=== PATIENT | male | born 1945 | race Caucasian/White ===

== ENCOUNTER 2024-05-06 18:06 | Inpatient (IN) | payer MEDICARE, SELFPAY ==
[2024-05-06] VITALS (10 sets, daily range): BP systolic 87–107; BP diastolic 44–66; PULSE 73–90; RESP 12–19; TEMP 36.5–36.8; O2SAT 94–99; BMI 21.9
--- NOTE | ~2024-05-06 | CT_ITS ---
EXAMINATION: CT ABDOMEN PELVIS WITHOUT IV CONTRAST HISTORY: ?kidney mass COMPARISON: There are no prior studies for comparison. TECHNIQUE: CT scan of the abdomen and pelvis was performed without contrast using standard departmental protocol. Coronal and sagittal reformatted images were generated and reviewed. This CT exam was performed with one or more of the following dose reduction techniques: automated exposure control, adjustment of the mA and/or kV according to patient size, use of iterative reconstruction technique. DLP: 194 mGy-cm FINDINGS: LOWER CHEST: The visualized lung bases are clear. There is no pleural effusion. CARDIOVASCULATURE: The heart is normal in size. There is no pericardial effusion. LIVER: The liver is normal in size and contour. The liver has an unremarkable unenhanced appearance. GALLBLADDER / BILE DUCTS: The gallbladder is contracted. No definite calcified stones are identified. There is no intra or extrahepatic biliary ductal dilatation. SPLEEN: The spleen is normal in size and has an unremarkable unenhanced appearance. PANCREAS: The pancreas has an unremarkable unenhanced appearance. ADRENAL GLANDS: Unremarkable. KIDNEYS/RETROPERITONEUM: The right kidney demonstrates a 5.1 x 3.7 cm septated cyst at the upper pole. There is a 3 mm nonobstructing calculus at the upper pole. Additional smaller nonobstructing calculi are noted in the interpolar region. There is no hydronephrosis. The left kidney demonstrates a 4.6 cm cyst at the upper pole. There is a 7.1 x 8.0 x 6.2 cm heterogeneous mass at the anterior aspect of the interpolar region. The mass demonstrates wall irregularity and calcification and is highly suspicious for neoplasm. Evaluation is limited by lack of intravenous contrast material, however. No left renal calculi are identified. There is no left hydronephrosis. LYMPH NODES: No retroperitoneal lymphadenopathy is identified in the abdomen or pelvis. VASCULATURE: The abdominal aorta demonstrates atherosclerotic calcification, but is normal in caliber. MESENTERY/PERITONEUM: No free fluid. No masses. There is no free intraperitoneal gas. STOMACH: There is a large hiatal hernia. There is a large amount of debris in the remainder of the stomach. SMALL BOWEL: The small bowel is normal in caliber. COLON: The colon is unremarkable. APPENDIX: Normal. URINARY BLADDER/PELVIC ORGANS: There is the suggestion of mild wall thickening of the right lateral aspect of the urinary bladder. The prostate is normal in size. BONES / SOFT TISSUES: There is degenerative disc disease of the spine. CT/CT abdomen pelvis wo IV con IMPRESSION: 1. 7.1 x 8.2 x 6.2 cm heterogeneous mass at the anterior aspect of the interpolar region of the left kidney, demonstrating wall irregularity and calcification. While evaluation is limited by lack of intravenous contrast material, the lesion is highly suspicious for neoplasm. Renal protocol CT is recommended. 2. Possible wall thickening of the right lateral aspect of the urinary bladder. This could be further evaluated with cystoscopy. Electronically signed by: Kevin Arreola MD 05/07/2024 12:04 PM ADRIEN
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
--- NOTE | ~2024-05-06 | XR_ITS ---
CLINICAL HISTORY: low bp 1 view chest x-ray. Comparison: None Findings: Lungs are clear without acute infiltrates. No pneumothorax. Heart size normal. Retrocardiac hiatal hernia noted. No acute bony abnormalities. Impression: No acute processes This document has been electronically signed by: Igor Cuadra MD on 05/06/2024 20:19:34
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
--- NOTE | 2024-05-06 19:06 | ECG_ITS ---
Test Reason : LOW BP Blood Pressure : */* mmHG Vent. Rate : 78 BPM Atrial Rate : 78 BPM P-R Int : 174 ms QRS Dur : 80 ms QT Int : 434 ms P-R-T Axes : 63 57 1 degrees QTcB Int : 494 ms Normal sinus rhythm T wave abnormality, consider inferior ischemia T wave abnormality, consider anterior ischemia Abnormal ECG No previous ECGs available Referred By: Bety Byers Electronically Signed By: KAT EDWARDS
[2024-05-06 19:55] LABS: MANUAL DIFF FLAG NO
--- NOTE | 2024-05-06 19:59 | PC.NURSE ---
20g IV placed to RAC. lab work, CXR done. U/S at bedside. initial BP in room was 104/66, then 85/51, trendelenburg position, then 96/55
[2024-05-06 20:00] LABS: Basophils Percent Auto 0.2 % (0-2); Eosinophils Absolute Auto 0.1 X10*3/uL (0.0-0.4); Eosinophils Percent Auto 0.6 % (0-4); Hematocrit 41.3 % (42.0-52.0); Hemoglobin 14.3 g/dl (14.0-18.0); Imm Gran Abs Auto 0.06 X10*3/uL (0.00-0.03); Imm Gran Pct Auto 0.5 % (0.0-0.4); Lymphocytes Absolute Auto 2.6 X10*3/uL (1.2-4.9); Lymphocytes Percent Auto 23.3 % (20-40); Mean Corpuscular HGB Conc 34.6 g/dl (31.0-36.0); Mean Corpuscular Hemoglobin 32.2 pg (27.0-33.0); Mean Platelet Volume 11.2 fL (9.4-12.4); Monocytes Absolute Auto 1.3 X10*3/uL (0.1-1.2); Monocytes Percent Auto 11.6 % (2-11); Neutrophils Percent Auto 63.8 % (45-73); Platelet Count 156 X10*3/uL (160-400); Red Blood Count 4.44 X10*6/uL (4.60-5.80); Red Cell Distribution Width 13.7 % (11.0-16.0)
[2024-05-06 20:09] LABS: INTERNATIONAL NORM RATIO 1.2 (0.9-1.1); Prothrombin Time 14.2 SEC (10.9-12.4)
[2024-05-06 20:09] LABS: Troponin-I High Sensitivity 36.2 ng/L (<3.5-35.0)
[2024-05-06 20:13] LABS: Alanine Aminotransferase 9 U/L (0-40); Albumin Level 3.4 g/dL (3.5-5.0); Alkaline Phosphatase 81 U/L (39-117); Anion Gap 16 (12-20); Aspartate Amino Transferase 26 U/L (5-37); Bilirubin Direct 0.4 mg/dL (0.0-0.5); Bilirubin Total 0.8 mg/dL (0.0-1.0); Blood Urea Nitrogen 76 mg/dL (9-16); Carbon Dioxide 25 mmol/L (22-29); Chloride 105 mmol/L (96-108); Creatinine Clr Calc Pharmacy 15.5; Estimated Glomerular Filt Rate 17; Glucose Random 125 mg/dL (60-115); Magnesium 2.2 mg/dL (1.6-2.6); Potassium 4.2 mmol/L (3.3-5.1); Sodium 142 mmol/L (135-145); Total Protein 7.3 g/dL (6.5-8.0)
[2024-05-06 20:34] LABS: Influenza A PCR NEGATIVE (Negative); Influenza B PCR NEGATIVE (Negative); Resp Syncy Virus RNA Qual PCR NEGATIVE (Negative); SARS COV2 PCR INHOUSE NEGATIVE (Negative)
[2024-05-06] MEDS: 0.9 % Sodium Chloride 1,000 ML 999 ML IV ×2 (20:43)
[2024-05-06] MEDS: Apixaban 5 MG TABLET 10 MG PO (21:59)
--- NOTE | 2024-05-06 22:03 | PHA.MEDREC ---
Addendum entered by Artem Parker RPh 05/06/24 22:15: Med rec was reviewed by [facility]. Original Note: Pharmacy Consult ? Medication Reconciliation Pharmacy has completed the medication reconciliation. Went to speak with patient about medications and patients grandson at bedside had photos of Rx bottles of medications the patient was filling at a [facility] in [facility]. Patient got Doxepin 25mg capsules taken 1 cap at bedtime, Chlorthalidone 25mg tabs taken 1 tab daily, Metoprolol Succinate 25mg tabs taken 1 tab daily, Pantoprazole 40mg tabs taken 1 tab daily, Lisinopril 40mg tabs taken 1 tab daily and Escitalopram 20mg tabs taken 1 tab daily. The grandson states they are now going to be filling his grandfathers medications at [facility] on [facility] in [place]. He also confirmed the patient took his morning medications this morning.
[2024-05-06 22:28] LABS: Appearance Urine Clear; Color Urine Dark Yellow; Glucose Urine UA Negative (Negative); Leukocyte Esterase Urine Small (1+) (Negative); Nitrite Urine Negative (Negative); UMIC TRIGGER UACC YES; Urine Blood Negative (Negative); Urine Ketones Trace mg/dL (Negative); Urine Protein Negative (Neg-Trace)
[2024-05-06 22:43] LABS: Bacteria Urine None Seen (None Seen); RBC Urine 0-2 /HPF (0-2); Squamous Epithelial Cell Urine 0-2 /HPF (0-2); UACC Culture Trigger YES; WBC Urine 0-5 /HPF (0-5)
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
--- NOTE | 2024-05-06 23:31 | PC.NURSE ---
Took over care from ABA Quesada, pt resting in bed, no sign of distress at this bed.
[2024-05-07] VITALS (10 sets, daily range): BP systolic 97–133; BP diastolic 54–65; PULSE 66–82; RESP 13–20; TEMP 36.4–36.8; O2SAT 95–99; BMI 27.8
[2024-05-07] MEDS: Pantoprazole Sodium 20 MG TABLET.DR 40 MG PO (05:46)
[2024-05-07] MEDS: 0.9 % Sodium Chloride Flush 3 ML SYRINGE IVFLUSH ×3 (05:47→20:02)
[2024-05-07 05:56] LABS: Hematocrit 36.6 % (42.0-52.0); Hemoglobin 12.1 g/dl (14.0-18.0); Mean Corpuscular HGB Conc 33.1 g/dl (31.0-36.0); Mean Corpuscular Hemoglobin 31.5 pg (27.0-33.0); Mean Corpuscular Volume 95.3 fL (80.0-98.0); Mean Platelet Volume 11.1 fL (9.4-12.4); Platelet Count 126 X10*3/uL (160-400); Red Blood Count 3.84 X10*6/uL (4.60-5.80); Red Cell Distribution Width 13.5 % (11.0-16.0); White Blood Count 8.6 X10*3/uL (4.8-10.8)
[2024-05-07 06:08] LABS: Anion Gap 10 (12-20); Blood Urea Nitrogen 65 mg/dL (9-16); Calcium 8.5 mg/dL (8.4-10.2); Carbon Dioxide 24 mmol/L (22-29); Chloride 112 mmol/L (96-108); Creatinine Clr Calc Pharmacy 18.6; Estimated Glomerular Filt Rate 22; Glucose Random 108 mg/dL (60-115); Potassium 4.3 mmol/L (3.3-5.1); Sodium 142 mmol/L (135-145)
--- NOTE | 2024-05-07 06:39 | PC.NURSE ---
pt voided 260cc at this time.
--- NOTE | 2024-05-07 07:00 | CA_ITS ---
Transthoracic Echocardiogram Patient (Last, First, Middle): Pawel Will F Gender: Male Date of : 1945 Age: 79 Procedure Date: 05/07/2024 Procedure Type: Transthoracic Echocardiogram [place] [facility] [place] Height: 170.18 cm Weight: 63.5 kg BSA: 1.74 m2 Heart Rate: bpm BP: 97 / 58 mmHg Transportation Inspector: SOPHIA Referring MD: Leanne SCHULTZ Symptoms: dizziness, DVT Study Quality: Adequate w contrast ECG Rhythm: Sinus Conclusions: - The left ventricular systolic function is normal. The visually estimated ejection fraction is between 60-65%. - No obvious valvular pathology seen on this study. Findings Procedure Information Contrast agent, definity, is being given per protocol without apparent complications. Left Ventricle Normal left ventricular cavity size. There is normal left ventricular wall thickness. The left ventricular systolic function is normal. The visually estimated ejection fraction is between 60-65%. There is no evidence of regional wall motion abnormalities. Diastolic function is normal for age. Right Ventricle Normal right ventricular cavity size and systolic function. Atria Both atria are normal in size. Aortic Valve There is a normal trileaflet aortic valve. There is no aortic valve stenosis. There is no aortic valve regurgitation. Mitral Valve The mitral valve appears normal. There is no mitral valve regurgitation. There is no mitral valve stenosis. Pulmonic Valve The pulmonic valve is likely normal. Tricuspid Valve There is trace tricuspid valve regurgitation. There is no evidence of pulmonary hypertension. Great Vessels The asc aorta is normal in size. Venous The inferior vena cava is normal in size and collapses greater than 50% with inspiration. Pericardium/Pleural There is no evidence of pericardial effusion. Prior Study Comparison No prior study available for comparison. Recommendations, Care & Conclusions No obvious valvular pathology seen on this study. Measurements 2D Linear Measurements IVSd: 0.98 0.6-0.9/0.6-1.0 cm LVIDd: 4.32 3.9-5.3/4.2-5.9 cm LVIDd Index: 2.48 2.4-3.2/2.2-3.1 cm/m2 LVIDs: 2.78 2.0-3.6 cm LVPWd: 0.88 0.7-1.1 cm LA Diam: 3.00 2.7-3.8/3.0-4.0 cm LAIDs Index: 1.72 1.5-2.3 cm/m2 LV Mass: 162.22 67-162/88-224 g LV Mass Index: 93.23 43-95/49-115 g/m2 LVOT Diam: 2.30 3.0+(-)1.3 cm Mitral Valve MV Pk E: 0.71 MV PK A: 0.76 MV Decel Time: 237.00 E/A: 0.90 E'Lateral: 9.46 E'Medial: 5.44 E/E' Med: 13.00 E/E' Lat: 7.50 PHT: 69.00 MVA PHT: 3.19 Decel Eddy: 2.98 LVOT LVOT Diam: 2.30 LVOT Area: 4.15 Diastolic Function MV Pk E: 0.71 MV Pk A: 0.76 E/A: 0.90 E'Medial: 5.44 E/E' Med: 13.00 E' Laterial: 9.46 E/E' Lat: 7.50 Right Ventricle TAPSE (mm): 21.40 TVS' Fitz: 12.80 Tricuspid Valve TR Pk Fitz: 2.27 TR Pk Grad: 21.00 RA Press: 3.00 RVSP: 24.00 Great Vessels Aorta Sinus of Valsalva: 3.57 2.0-3.[address] [place]: 3.03 1.7-3.4 cm Ao Asc: 3.80 2.1-3.4 cm Updated in Other Vendor System with Status of Final Asif Foster MD electronically signed on 05/08/2024 11:12:51 AM with status of Final
[2024-05-07] MEDS: Metoprolol Succinate ER 25 MG TAB.ER.24H PO (09:21)
[2024-05-07] MEDS: Apixaban 5 MG TABLET 10 MG PO ×2 (09:21→20:02)
--- NOTE | 2024-05-07 10:30 | MHC.CM.PN ---
CM met with Patient at bedside, in the ED, and addressed KENNY with him (original was given to Patient and a copy will be placed in the chart). Patient has been switched from OBSERVATION to INPATIENT and CM will address IMM with Patient today. Patient lives in a motel in [place], [place] and he required no services nor DME [employer]RB[employer] DES[employer]. Patient may benefit from a PT Eval to assist with disposition;CM has initiated and will follow for dc planning. Patient's Grandson/Fernando is the HCP and he will transport to home. Patient has no PCP; PCP brochure to be provided when IMM is addressed today.CM will follow.
--- NOTE | 2024-05-07 13:29 | P.PNIM_ITS ---
Subjective Subjective Date of Service: 05/07/24 Interval History: Seen and examined this morning Follow-up for orthostatic hypotension, kim dizziness improving Review of Systems Review of Systems: Yes all other systems are reviewed and are negative Constitutional Constitutional: Denies chills and Denies fever(s) Cardiovascular Cardiovascular: Denies chest pain, Denies palpitations and Denies dyspnea Respiratory Respiratory: Denies cough and Denies dyspnea Endocrine Endocrine: Denies palpitations Physical Exam 2 Vital Signs: Vital Signs: Last Vital Signs Temp 98.1 F 05/07/24 09:58 Pulse 69 05/07/24 09:58 Resp 19 05/07/24 09:58 BP 97/58 L 05/07/24 09:58 Pulse Ox 99 05/07/24 09:58 O2 Del Method Room Air 05/07/24 09:58 BMI result Body Mass Index 21.9 Const: General: cooperative, comfortable, alert and awake Nutritional Appearance: average body habitus Orientation/consciousness: patient oriented x3 Resp: Effort & Inspection: normal respiratory effort, able to speak in complete sentences, no respiratory distress and no use of accessory muscles GI: Inspection: No distended Palpation (GI): Soft to palpation Neuro: General: patient oriented x3, moves all extremities and CN's II-XI intact bilaterally Objective Data Active Medications Acetaminophen (Acetaminophen 325 Mg Tablet) 650 mg PO Q6H PRN PRN Reason: Pain, Mild 1-3,fever,headache Apixaban (Apixaban 5 Mg Tablet) 10 mg PO BID [facility] Stop: 05/13/24 09:01 Last Admin: 05/07/24 09:21 Dose: 10 mg Documented By: ABDI Calcium Carbonate (Calcium Carbonate 750 Mg Tab.Chew) 750 mg PO Q4H PRN PRN Reason: Heartburn Doxepin HCl (Doxepin Hcl 25 Mg Capsule) 25 mg PO BEDTIME [facility] Escitalopram Oxalate (Escitalopram Oxalate 20 Mg Tablet) 20 mg PO DAILY [facility] Lactated Ringer's (Lr) 1,000 mls @ 80 mls/hr IVCONT .[id number] [facility] Stop: 05/07/24 23:59 Magnesium Hydroxide (Milk Of Magnesia 30 Ml Oral.Susp) 30 ml PO DAILY PRN PRN Reason: Constipation Melatonin (Melatonin 3 Mg Tablet) 6 mg PO BEDTIME PRN PRN Reason: Insomnia Metoprolol Succinate (Metoprolol Succinate Er 25 Mg Tab.Er.24h) 25 mg PO DAILY [facility]; Protocol Last Admin: 05/07/24 09:21 Dose: 25 mg Documented By: ABDI Ondansetron HCl (Ondansetron Hcl 4 Mg/2 Ml Vial) 4 mg IVPUSH Q8H PRN PRN Reason: Nausea and Vomiting Pantoprazole Sodium (Pantoprazole Sodium 20 Mg Tablet.Dr) 40 mg PO DAILY@0630 [facility] Last Admin: 05/07/24 05:46 Dose: 40 mg Documented By: MAYNOR Sodium Chloride (0.9 % Sodium Chloride Flush 3 Ml Syringe) 3 ml IVFLUSH QSHIFT [facility] Last Admin: 05/07/24 09:30 Dose: 3 ml Documented By: ABDI Labs 05/07/24 05:18 05/07/24 05:17 Labs: Laboratory Results - last 24 hr 05/06/24 05/06/24 05/06/24 19:32 19:51 22:20 MCV 93.0 MCH 32.2 MCHC 34.6 RDW 13.7 Plt Count 156 L MPV 11.2 Immature Gran % (Auto) 0.5 H Neut % (Auto) 63.8 Lymph % (Auto) 23.3 [place] % (Auto) 11.6 H Eos % (Auto) 0.6 Baso % (Auto) 0.2 Lymph # (Auto) 2.6 [place] # (Auto) 1.3 H Eos # (Auto) 0.1 Baso # (Auto) 0.0 Abs Immat Gran (auto) 0.06 H Absolute Neuts (auto) 7.0 Absolute Nucleated RBC 0.000 Nucleated RBC % (auto) 0.0 PT 14.2 H INR 1.2 H Anion Gap 16 Estim Creat Clear Calc 15.5 Estimated GFR 17 Random Glucose 125 H Calcium 9.0 Magnesium 2.2 Total Bilirubin 0.8 Direct Bilirubin 0.4 AST 26 ALT 9 Alkaline Phosphatase 81 Troponin I High Sens 36.2 H Total Protein 7.3 Albumin 3.4 L Urine Color Dark Yellow Urine Appearance Clear Urine pH 5.0 Ur Specific [place] 1.020 Urine Protein Negative Urine Glucose (UA) Negative Urine Ketones Trace Urine Blood Negative Urine Nitrite Negative Ur Leukocyte Esterase Small (1+) H Urine RBC 0-2 Urine WBC 0-5 Ur Squamous Epith Cells 0-2 Urine Bacteria None Seen Hyaline Casts 3-5 Influenza Type A (PCR) NEGATIVE Influenza Type B (PCR) NEGATIVE RSV RNA Qual (PCR) NEGATIVE SARS-CoV-2 RNA (RT-PCR) NEGATIVE 05/07/24 05/07/24 05:17 05:18 MCV 95.3 MCH 31.5 MCHC 33.1 RDW 13.5 Plt Count 126 L MPV 11.1 Immature Gran % (Auto) Neut % (Auto) Lymph % (Auto) [place] % (Auto) Eos % (Auto) Baso % (Auto) Lymph # (Auto) [place] # (Auto) Eos # (Auto) Baso # (Auto) Abs Immat Gran (auto) Absolute Neuts (auto) Absolute Nucleated RBC 0.000 Nucleated RBC % (auto) 0.0 PT INR Anion Gap 10 L Estim Creat Clear Calc 18.6 Estimated GFR 22 Random Glucose 108 Calcium 8.5 Magnesium Total Bilirubin Direct Bilirubin AST ALT Alkaline Phosphatase Troponin I High Sens Total Protein Albumin Urine Color Urine Appearance Urine pH Ur Specific [place] Urine Protein Urine Glucose (UA) Urine Ketones Urine Blood Urine Nitrite Ur Leukocyte Esterase Urine RBC Urine WBC Ur Squamous Epith Cells Urine Bacteria Hyaline Casts Influenza Type A (PCR) Influenza Type B (PCR) RSV RNA Qual (PCR) SARS-CoV-2 RNA (RT-PCR) Microbiology Microbiology Results: Microbiology 05/06/24 22:20 Urine Culture - Preliminary Urine clean catch - Clean Catch Midstream No growth to date. Assessment and Plan (1) DVT (deep venous thrombosis): Status: Acute (2) Orthostatic hypotension: Status: Acute Plan This is a 79-year-old male with pertinent history of hypertension, gastroesophageal reflux disease, mood disorder, who presented to the emergency department for evaluation of dizziness/lightheadedness found to be orthostatic Orthostatic presyncope: Orthostatic vital signs noted to be positive in the ER improving but BP still soft continue IVF Left lower extremity DVT: Initiated on Eliquis Elevated creatinine: KIM on CKD versus CKD. Unknown baseline. renal function has improved somewhat with IV fluid, we will continue gentle IV fluid resuscitation Kidney mass CT scan showing left kidney mass and bladder wall thickening concerning for malignancy Urology consult Mood disorder: Continue home mood stabilizers Hypertension: bp low Hold lisinopril and chlorthalidone Gastroesophageal reflux disease: On PPI initial trop 36, repeat pending no chest pain, likely due to decreased renal clearance echo pending thrombocytopenia unclear chronicity follow CBC DVT prophylaxis: Annamarie Full code Requires ongoing inpatient stay for management of orthostatic hypotension, probable KIM and new kidney mass requiring specialist evaluation Quality Stroke Does the patient have a stroke diagnosis?: No VTE Prior VTE?: No VTE Risk Level:: Medical - moderate - high VTE Device Contraindication: Treatment Not Indicated VTE Drug Contraindication: N/A - Med Ordered
[2024-05-07] MEDS: Lactated Ringers 1,000 ML 80 ML IVCONT (13:45)
[2024-05-07] MEDS: Escitalopram Oxalate 20 MG TABLET PO (14:04)
[2024-05-07 14:53] LABS: Troponin-I High Sensitivity 33.1 ng/L (<3.5-35.0)
--- NOTE | 2024-05-07 17:34 | PM.UROCN ---
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 The mass demonstrates wall irregularity and calcification and is highly suspicious for neoplasm. Evaluation is limited by lack of intravenous contrast material, however. No left renal calculi are identified Cr 3.4 at admission - declined to 1.6 with hydration Review of Systems Constitutional: Constitutional: Reports as per HPI and Reports no additional constitutional complaints Cardiovascular: Cardiovascular: Reports as per HPI and Reports no additional cardiovascular complaints Respiratory: Respiratory: Reports as per HPI and Reports no additional respiratory complaints Gastrointestinal: Gastrointestinal: Reports as per HPI and Reports no additional gastrointestinal complaints Genitourinary: Genitourinary: Reports as per HPI Musculoskeletal: Musculoskeletal: Reports no additional musculoskeletal complaints and Reports as per HPI Neurologic: Reports system reviewed and no additional complaints, except as documented and Reports as per HPI [facility] Past Medical History Medical History Gastroesophageal reflux disease Chronic kidney disease Mood disorder Hypertension Social History Social History Patient Tobacco Use Status: Never used Tobacco Substance Use Type: Marijuana service: No Meds Allergies Allergy/AdvReac Type Severity Reaction Status Date / Time No Known Allergies Allergy Verified 05/06/24 19:09 Active Medications: Current Medications Acetaminophen (Acetaminophen 325 Mg Tablet) 650 mg PO Q6H PRN PRN Reason: Pain, Mild 1-3,fever,headache Apixaban (Apixaban 5 Mg Tablet) 10 mg PO BID [facility] Stop: 05/13/24 09:01 Last Admin: 05/07/24 09:21 Dose: 10 mg Calcium Carbonate (Calcium Carbonate 750 Mg Tab.Chew) 750 mg PO Q4H PRN PRN Reason: Heartburn Doxepin HCl (Doxepin Hcl 25 Mg Capsule) 25 mg PO BEDTIME [facility] Escitalopram Oxalate (Escitalopram Oxalate 20 Mg Tablet) 20 mg PO DAILY [facility] Last Admin: 05/07/24 14:04 Dose: 20 mg Lactated Ringer's (Lr) 1,000 mls @ 80 mls/hr IVCONT .[id number] [facility] Stop: 05/07/24 23:59 Last Admin: 05/07/24 13:45 Dose: 80 mls/hr Magnesium Hydroxide (Milk Of Magnesia 30 Ml Oral.Susp) 30 ml PO DAILY PRN PRN Reason: Constipation Melatonin (Melatonin 3 Mg Tablet) 6 mg PO BEDTIME PRN PRN Reason: Insomnia Metoprolol Succinate (Metoprolol Succinate Er 25 Mg Tab.Er.24h) 25 mg PO DAILY [facility]; Protocol Last Admin: 05/07/24 09:21 Dose: 25 mg Ondansetron HCl (Ondansetron Hcl 4 Mg/2 Ml Vial) 4 mg IVPUSH Q8H PRN PRN Reason: Nausea and Vomiting Pantoprazole Sodium (Pantoprazole Sodium 20 Mg Tablet.Dr) 40 mg PO DAILY@629 [facility] Last Admin: 05/07/24 05:46 Dose: 40 mg Sodium Chloride (0.9 % Sodium Chloride Flush 3 Ml Syringe) [facility] Last Admin: 05/07/24 17:11 Dose: Not Given Home Medications ?Medication ?Instructions ?Recorded ?Confirmed ?Last Taken ?Type chlorthalidone 25 mg tablet 25 mg PO DAILY 05/06/24 05/06/24 05/06/24 History doxepin 25 mg capsule 25 mg PO BEDTIME 05/06/24 05/06/24 05/05/24 History escitalopram oxalate 20 mg tablet 20 mg PO DAILY 05/06/24 05/06/24 05/06/24 History lisinopril 40 mg tablet 40 mg PO DAILY 05/06/24 05/06/24 05/06/24 History metoprolol succinate 25 mg 25 mg PO DAILY 05/06/24 05/06/24 05/06/24 History tablet,extended release 24 hr pantoprazole 40 mg tablet,delayed 40 mg PO DAILY@0630 05/06/24 05/06/24 05/06/24 History release Physical Exam Vital Signs: Vital Signs: Last Vital Signs Temp 98.2 F 05/07/24 13:45 Pulse 70 05/07/24 13:45 Resp 16 05/07/24 13:45 BP 110/63 05/07/24 13:45 Pulse Ox 98 05/07/24 13:45 O2 Del Method Room Air 05/07/24 13:45 BMI result Body Mass Index 27.8 Const: General: cooperative, healthy appearing, comfortable and no acute distress Orientation/consciousness: patient oriented x3 HEENT: Face and sinus: Yes normal facial exam Mouth: moist mucous membranes Neck: Neck: Yes normal visual inspection, Yes full ROM and Yes trachea midline Chest: Chest palpation & inspection: normal inspection of the chest Resp: Effort & Inspection: normal respiratory effort, able to speak in complete sentences and no respiratory distress GI: Inspection: Yes normal to inspection Back/Spine/Pelvis: Cervical Spine: normal cervical lordosis Thoracic/Lumbar Spine: thoracic and lumbar spine normal to inspection Skin: General skin exam: no rashes or lesions noted Neuro: General: patient oriented x3, tone normal and moves all extremities Extrem: General: Yes normal to inspection and Yes capillary refill normal Results Labs 05/11/24 05:42 05/11/24 05:42 Labs: Abnormal lab results 05/06/24 05/06/24 05/06/24 Range/Units 19:32 19:51 22:20 WBC 11.0 H (4.8-10.8) X10*3/uL RBC 4.44 L (4.60-5.80) X10*6/uL Hgb (14.0-18.0) g/dl Hct 41.3 L (42.0-52.0) % Plt Count 156 L (160-400) X10*3/uL Immature Gran % (Auto) 0.5 H (0.0-0.4) % [place] % (Auto) 11.6 H (2-11) % [place] # (Auto) 1.3 H (0.1-1.2) X10*3/uL Abs Immat Gran (auto) 0.06 H (0.00-0.03) X10*3/uL PT 14.2 H (10.9-12.4) SEC INR 1.2 H (0.9-1.1) Chloride (96-108) mmol/L Anion Gap (12-20) BUN 76 H (9-16) mg/dL Creatinine 3.41 H (0.5-1.4) mg/dL Random Glucose 125 H (60-115) mg/dL Troponin I High Sens 36.2 H (<3.5-35.0) ng/L Albumin 3.4 L (3.5-5.0) g/dL Ur Leukocyte Esterase Small (1+) H (Negative) 05/07/24 05/07/24 Range/Units 05:17 05:18 WBC (4.8-10.8) X10*3/uL RBC 3.84 L (4.60-5.80) X10*6/uL Hgb 12.1 L (14.0-18.0) g/dl Hct 36.6 L (42.0-52.0) % Plt Count 126 L (160-400) X10*3/uL Immature Gran % (Auto) (0.0-0.4) % [place] % (Auto) (2-11) % [place] # (Auto) (0.1-1.2) X10*3/uL Abs Immat Gran (auto) (0.00-0.03) X10*3/uL PT (10.9-12.4) SEC INR (0.9-1.1) Chloride 112 H (96-108) mmol/L Anion Gap 10 L (12-20) BUN 65 H (9-16) mg/dL Creatinine 2.83 H (0.5-1.4) mg/dL Random Glucose (60-115) mg/dL Troponin I High Sens (<3.5-35.0) ng/L Albumin (3.5-5.0) g/dL Ur Leukocyte Esterase (Negative) Short CBC 05/06/24 05/07/24 Range/Units 19:51 05:18 WBC 11.0 H 8.6 (4.8-10.8) X10*3/uL Hgb 14.3 12.1 L (14.0-18.0) g/dl Hct 41.3 L 36.6 L (42.0-52.0) % Plt Count 156 L 126 L (160-400) X10*3/uL BMP 05/06/24 05/07/24 19:32 05:17 Sodium 142 142 Potassium 4.2 4.3 Chloride 105 112 H Carbon Dioxide 25 24 BUN 76 H 65 H Creatinine 3.41 H 2.83 H Calcium 9.0 8.5 Liver Function 05/06/24 Range/Units 19:32 Total Bilirubin 0.8 (0.0-1.0) mg/dL Direct Bilirubin 0.4 (0.0-0.5) mg/dL AST 26 (5-37) U/L ALT 9 (0-40) U/L Alkaline Phosphatase 81 (39-117) U/L Albumin 3.4 L (3.5-5.0) g/dL Urine 05/06/24 Range/Units 22:20 Urine Color Dark Yellow Urine Appearance Clear Urine pH 5.0 (5.0-9.0) Ur Specific [place] 1.020 (1.005-1.025) Urine Protein Negative (Neg-Trace) mg/dL Urine Glucose (UA) Negative (Negative) mg/dL All other labs normal. Assessment and Plan (1) Renal mass: Status: Acute (2) Chronic kidney disease: Status: Acute Plan Renal biopsy Procedures Date of Service Date of Service: 05/11/24
[2024-05-07] MEDS: Doxepin HCl 25 MG CAPSULE PO (20:02)
[2024-05-08] VITALS (7 sets, daily range): BP systolic 98–133; BP diastolic 55–64; PULSE 64–77; RESP 16–20; TEMP 35.9–36.9; O2SAT 94–97
[2024-05-08] MEDS: Pantoprazole Sodium 20 MG TABLET.DR 40 MG PO (06:02)
[2024-05-08 07:27] LABS: Hematocrit 35.4 % (42.0-52.0); Hemoglobin 12.1 g/dl (14.0-18.0); Mean Corpuscular HGB Conc 34.2 g/dl (31.0-36.0); Mean Corpuscular Hemoglobin 31.9 pg (27.0-33.0); Mean Corpuscular Volume 93.4 fL (80.0-98.0); Mean Platelet Volume 10.4 fL (9.4-12.4); Platelet Count 131 X10*3/uL (160-400); Red Blood Count 3.79 X10*6/uL (4.60-5.80); Red Cell Distribution Width 13.7 % (11.0-16.0); White Blood Count 7.5 X10*3/uL (4.8-10.8)
[2024-05-08 07:42] LABS: Anion Gap 11 (12-20); Blood Urea Nitrogen 43 mg/dL (9-16); Calcium 8.6 mg/dL (8.4-10.2); Carbon Dioxide 22 mmol/L (22-29); Chloride 112 mmol/L (96-108); Creatinine Clr Calc Pharmacy 30.7; Estimated Glomerular Filt Rate 36; Glucose Random 89 mg/dL (60-115); Potassium 3.9 mmol/L (3.3-5.1); Sodium 141 mmol/L (135-145)
[2024-05-08] MEDS: Escitalopram Oxalate 20 MG TABLET PO (08:02)
[2024-05-08] MEDS: Metoprolol Succinate ER 25 MG TAB.ER.24H PO (08:02)
[2024-05-08] MEDS: 0.9 % Sodium Chloride Flush 3 ML SYRINGE IVFLUSH ×2 (08:02→16:57)
[2024-05-08] MEDS: Apixaban 5 MG TABLET 10 MG PO (08:02)
--- NOTE | 2024-05-08 13:35 | P.PNIM_ITS ---
Subjective Subjective Date of Service: 05/08/24 Interval History: Seen and examined this morning Follow-up for KIM, acute DVT, kidney mass No dizziness, overall feeling better Constitutional Constitutional: Denies chills and Denies fever(s) ENT Ears, Nose, Mouth, and Throat: Denies dizziness Neurologic Neurologic: Denies dizziness Physical Exam 2 Vital Signs: Vital Signs: Last Vital Signs Temp 96.6 F L 05/08/24 11:42 Pulse 67 05/08/24 11:42 Resp 20 05/08/24 11:42 BP 104/55 L 05/08/24 11:42 Pulse Ox 96 05/08/24 11:42 O2 Del Method Room Air 05/08/24 11:42 BMI result Body Mass Index 27.8 Const: General: cooperative, comfortable, alert and awake Nutritional Appearance: average body habitus Orientation/consciousness: patient oriented x3 Resp: Effort & Inspection: normal respiratory effort, able to speak in complete sentences, no respiratory distress and no use of accessory muscles GI: Inspection: No distended Palpation (GI): Soft to palpation Neuro: General: patient oriented x3, moves all extremities and CN's II-XI intact bilaterally Objective Data Active Medications Acetaminophen (Acetaminophen 325 Mg Tablet) 650 mg PO Q6H PRN PRN Reason: Pain, Mild 1-3,fever,headache Apixaban (Apixaban 5 Mg Tablet) [address] [facility] Stop: 05/13/24 09:01 Last Admin: 05/08/24 08:02 Dose: 10 mg Documented By: TEVIN Calcium Carbonate (Calcium Carbonate 750 Mg Tab.Chew) 750 mg PO Q4H PRN PRN Reason: Heartburn Doxepin HCl (Doxepin Hcl 25 Mg Capsule) [address] [facility] Last Admin: 05/07/24 20:02 Dose: 25 mg Documented By: MAN Escitalopram Oxalate (Escitalopram Oxalate 20 Mg Tablet) [address] [facility] Last Admin: 05/08/24 08:02 Dose: 20 mg Documented By: TEVIN Magnesium Hydroxide (Milk Of Magnesia 30 Ml Oral.Susp) 30 ml PO DAILY PRN PRN Reason: Constipation Melatonin (Melatonin 3 Mg Tablet) 6 mg PO BEDTIME PRN PRN Reason: Insomnia Metoprolol Succinate (Metoprolol Succinate Er 25 Mg Tab.Er.24h) [address] [facility]; Protocol Last Admin: 05/08/24 08:02 Dose: 25 mg Documented By: TEVIN Ondansetron HCl (Ondansetron Hcl 4 Mg/2 Ml Vial) 4 mg IVPUSH Q8H PRN PRN Reason: Nausea and Vomiting Pantoprazole Sodium (Pantoprazole Sodium 20 Mg Tablet.) 40 mg PO DAILY@0630 [facility] Last Admin: 05/08/24 06:02 Dose: 40 mg Documented By: MAN Sodium Chloride (0.9 % Sodium Chloride Flush 3 Ml Syringe) [address] [facility] Last Admin: 05/08/24 08:02 Dose: 3 ml Documented By: TEVIN Labs 05/08/24 07:16 05/08/24 07:16 Labs: Laboratory Results - last 24 hr 05/07/24 05/08/24 14:29 07:16 MCV 93.4 MCH 31.9 MCHC 34.2 RDW 13.7 Plt Count 131 L MPV 10.4 Absolute Nucleated RBC 0.000 Nucleated RBC % (auto) 0.0 Anion Gap 11 L Estim Creat Clear Calc 30.7 Estimated GFR 36 Random Glucose 89 Calcium 8.6 Troponin I High Sens 33.1 Microbiology Microbiology Results: Microbiology 05/06/24 22:20 Urine Culture - Final Urine clean catch - Clean Catch Midstream No growth. Assessment and Plan (1) DVT (deep venous thrombosis): Status: Acute (2) Renal mass: Status: Acute Plan This is a 79-year-old male with pertinent history of hypertension, gastroesophageal reflux disease, mood disorder, who presented to the emergency department for evaluation of dizziness/lightheadedness found to be orthostatic Orthostatic presyncope: Orthostatic vital signs noted to be positive in the ER improved with IVF continue IVF Left lower extremity DVT: initially started on Eliquis - will need kidney biopsy, will transition to therapeutic Lovenox Can be discharged on oral Eliquis Elevated creatinine: KIM on CKD versus CKD. Unknown baseline. based on improvement in renal function appears to be KIM follow renal function Hold lisinopril, chlorthalidone Kidney mass CT scan showing left kidney mass and bladder wall thickening concerning for malignancy Urology consult plan for kidney biopsy early next week, will transition anticoagulation to therapeutic Lovenox until after procedure likely NPO on jaleesa night Mood disorder: Continue home mood stabilizers Hypertension: bp low Hold lisinopril and chlorthalidone Gastroesophageal reflux disease: On PPI mild elevation in trops remain flat no chest pain, likely due to decreased renal clearance echo normal thrombocytopenia unclear chronicity platelets stable DVT prophylaxis: Eliquis --> transitioning to lovenox Full code PT rec STR when medically ready for discharge Requires ongoing inpatient stay for management of orthostatic hypotension, probable KIM and new kidney mass requiring specialist evaluation Quality Stroke Does the patient have a stroke diagnosis?: No VTE Prior VTE?: No VTE Risk Level:: Medical - moderate - high VTE Device Contraindication: Treatment Not Indicated VTE Drug Contraindication: N/A - Med Ordered
--- NOTE | 2024-05-08 13:39 | MHC.CM.PN ---
Per EMR review, pt is not ready for DC, he requires further work up for mass on kidney. PT eval done, rec. STR. referrals out.
[2024-05-08] MEDS: Enoxaparin Sodium 80 MG/0.8 ML SYRINGE SUBCUT (19:59)
[2024-05-08] MEDS: Doxepin HCl 25 MG CAPSULE PO (20:00)
[2024-05-09 03:49] VITALS: BP 122/56; PULSE 68; RESP 16; TEMP 36.3; O2SAT 95
[2024-05-09] MEDS: Pantoprazole Sodium 20 MG TABLET.DR 40 MG PO (06:35)
[2024-05-09 07:21] VITALS: BP 108/65; PULSE 64; RESP 18; TEMP 36.9; O2SAT 93
[2024-05-09] MEDS: Escitalopram Oxalate 20 MG TABLET PO (08:26)
[2024-05-09] MEDS: Enoxaparin Sodium 80 MG/0.8 ML SYRINGE SUBCUT ×2 (08:26→21:21)
[2024-05-09] MEDS: Metoprolol Succinate ER 25 MG TAB.ER.24H PO (08:26)
[2024-05-09] MEDS: 0.9 % Sodium Chloride Flush 3 ML SYRINGE IVFLUSH ×2 (08:27→15:24)
[2024-05-09 09:07] LABS: Anion Gap 10 (12-20); Blood Urea Nitrogen 40 mg/dL (9-16); Calcium 8.6 mg/dL (8.4-10.2); Carbon Dioxide 26 mmol/L (22-29); Chloride 108 mmol/L (96-108); Creatinine Clr Calc Pharmacy 34.5; Estimated Glomerular Filt Rate 41; Glucose Random 85 mg/dL (60-115); Potassium 4.1 mmol/L (3.3-5.1); Sodium 140 mmol/L (135-145)
[2024-05-09 11:04] VITALS: BP 97/56; PULSE 76; RESP 18; TEMP 36.1; O2SAT 94
--- NOTE | 2024-05-09 15:08 | HO.PM.IMPN ---
Subjective Subjective Date of Service: 05/09/24 Interval History: Seen and examined this morning Follow-up for KIM, renal mass no complaints. no dizziness Review of Systems Review of Systems: Yes all other systems are reviewed and are negative Constitutional Constitutional: Denies chills and Denies fever(s) Physical Exam Vital Signs: Vital Signs: Last Vital Signs Temp 96.9 F 05/09/24 11:04 Pulse 76 05/09/24 11:04 Resp 18 05/09/24 11:04 BP 97/56 L 05/09/24 11:04 Pulse Ox 94 05/09/24 11:04 O2 Del Method Room Air 05/09/24 11:04 BMI result Body Mass Index 27.8 Const: General: cooperative, comfortable, alert and awake Nutritional Appearance: average body habitus Orientation/consciousness: patient oriented x3 Resp: Effort & Inspection: normal respiratory effort, able to speak in complete sentences, no respiratory distress and no use of accessory muscles GI: Inspection: No distended Palpation (GI): Soft to palpation Neuro: General: patient oriented x3, moves all extremities and CN's II-XI intact bilaterally Objective Data Active Medications Acetaminophen (Acetaminophen 325 Mg Tablet) 650 mg PO Q6H PRN PRN Reason: Pain, Mild 1-3,fever,headache Calcium Carbonate (Calcium Carbonate 750 Mg Tab.Chew) 750 mg PO Q4H PRN PRN Reason: Heartburn Doxepin HCl (Doxepin Hcl 25 Mg Capsule) 25 mg PO BEDTIME [facility] Last Admin: 05/08/24 20:00 Dose: 25 mg Documented By: POLINA Enoxaparin Sodium (Enoxaparin Sodium 80 Mg/0.8 Ml Syringe) 80 mg 1 mg/kg (80 mg) SUBCUT Q12H [facility] Last Admin: 05/09/24 08:26 Dose: 80 mg Documented By: CHESTER Escitalopram Oxalate (Escitalopram Oxalate 20 Mg Tablet) 20 mg PO DAILY [facility] Last Admin: 05/09/24 08:26 Dose: 20 mg Documented By: CHESTER Magnesium Hydroxide (Milk Of Magnesia 30 Ml Oral.Susp) 30 ml PO DAILY PRN PRN Reason: Constipation Melatonin (Melatonin 3 Mg Tablet) 6 mg PO BEDTIME PRN PRN Reason: Insomnia Metoprolol Succinate (Metoprolol Succinate Er 25 Mg Tab.Er.24h) 25 mg PO DAILY [facility]; Protocol Last Admin: 05/09/24 08:26 Dose: 25 mg Documented By: CHESTER Ondansetron HCl (Ondansetron Hcl 4 Mg/2 Ml Vial) 4 mg IVPUSH Q8H PRN PRN Reason: Nausea and Vomiting Pantoprazole Sodium (Pantoprazole Sodium 20 Mg Tablet.) 40 mg PO DAILY@0630 [facility] Last Admin: 05/09/24 06:35 Dose: 40 mg Documented By: POLINA Sodium Chloride (0.9 % Sodium Chloride Flush 3 Ml Syringe) 3 ml IVFLUSH QSHIFT [facility] Last Admin: 05/09/24 08:27 Dose: 3 ml Documented By: CHESTER Labs 05/08/24 07:16 05/09/24 08:23 Labs: Laboratory Results - last 24 hr 05/09/24 08:23 Anion Gap 10 L Estim Creat Clear Calc 34.5 Estimated GFR 41 Random Glucose 85 Calcium 8.6 Microbiology Microbiology Results: Microbiology 05/06/24 22:20 Urine Culture - Final Urine clean catch - Clean Catch Midstream No growth. Assessment and Plan (1) Renal mass: Status: Acute (2) Chronic kidney disease: Status: Acute (3) Dizziness: Status: Acute (4) DVT (deep venous thrombosis): Status: Acute Plan This is a 79-year-old male with pertinent history of hypertension, gastroesophageal reflux disease, mood disorder, who presented to the emergency department for evaluation of dizziness/lightheadedness found to be orthostatic Orthostatic presyncope: Orthostatic vital signs noted to be positive in the ER improved with IVF Left lower extremity DVT: initially started on Eliquis - will need kidney biopsy, will transition to therapeutic Lovenox Can be discharged on oral Eliquis KIM, Unknown baseline. follow renal function Hold lisinopril, chlorthalidone continue gentle IVF Kidney mass CT scan showing left kidney mass and bladder wall thickening concerning for malignancy Urology consult plan for kidney biopsy early next week, will transition anticoagulation to therapeutic Lovenox until after procedure likely NPO on saturday night Mood disorder: Continue home mood stabilizers Hypertension: bp low Hold lisinopril and chlorthalidone Gastroesophageal reflux disease: On PPI mild elevation in trops remain flat no chest pain, likely due to decreased renal clearance echo normal thrombocytopenia unclear chronicity platelets stable DVT prophylaxis: Eliquis --> transitioning to lovenox Full code PT rec STR when medically ready for discharge Requires ongoing inpatient stay for management of orthostatic hypotension, probable KIM and new kidney mass requiring specialist evaluation Quality Stroke Does the patient have a stroke diagnosis?: No VTE Prior VTE?: No VTE Risk Level:: Medical - moderate - high VTE Device Contraindication: Treatment Not Indicated VTE Drug Contraindication: N/A - Med Ordered
[2024-05-09 15:19] VITALS: BP 102/59; PULSE 68; RESP 17; TEMP 36.4; O2SAT 95
[2024-05-09] MEDS: Lactated Ringers 1,000 ML 80 ML IVCONT (15:23)
[2024-05-09 19:22] VITALS: BP 108/58; PULSE 79; RESP 22; TEMP 35.9; O2SAT 96
[2024-05-09] MEDS: Doxepin HCl 25 MG CAPSULE PO (21:21)
[2024-05-10] VITALS (7 sets, daily range): BP systolic 85–134; BP diastolic 55–96; PULSE 64–85; RESP 16–18; TEMP 36.1–36.9; O2SAT 93–96
[2024-05-10] MEDS: Pantoprazole Sodium 20 MG TABLET.DR 40 MG PO (05:42)
[2024-05-10] MEDS: Lactated Ringers 1,000 ML 80 ML IVCONT (05:43)
[2024-05-10] MEDS: Metoprolol Succinate ER 25 MG TAB.ER.24H PO (08:11)
[2024-05-10] MEDS: Escitalopram Oxalate 20 MG TABLET PO (08:12)
[2024-05-10] MEDS: Enoxaparin Sodium 80 MG/0.8 ML SYRINGE SUBCUT (08:12)
[2024-05-10] MEDS: 0.9 % Sodium Chloride Flush 3 ML SYRINGE IVFLUSH ×3 (08:12→21:26)
[2024-05-10 09:14] LABS: Anion Gap 8 (12-20); Blood Urea Nitrogen 32 mg/dL (9-16); Calcium 8.4 mg/dL (8.4-10.2); Carbon Dioxide 27 mmol/L (22-29); Chloride 107 mmol/L (96-108); Estimated Glomerular Filt Rate 45; Glucose Random 81 mg/dL (60-115); Potassium 4.1 mmol/L (3.3-5.1); Sodium 138 mmol/L (135-145)
--- NOTE | 2024-05-10 11:46 | P.PNIM_ITS ---
Subjective Subjective Date of Service: 05/10/24 Interval History: seen and examined this morning follow up for KIM, orthostasis, new DVT, renal mass feels well, no dizziness Review of Systems Review of Systems: Yes all other systems are reviewed and are negative Constitutional Constitutional: Denies chills and Denies fever(s) Cardiovascular Cardiovascular: Denies chest pain, Denies palpitations and Denies dyspnea Respiratory Respiratory: Denies cough and Denies dyspnea Gastrointestinal Gastrointestinal: Denies abdominal pain Endocrine Endocrine: Denies palpitations Physical Exam 2 Vital Signs: Vital Signs: Last Vital Signs Temp 97.5 F 05/10/24 11:12 Pulse 69 05/10/24 11:12 Resp 18 05/10/24 11:12 BP 102/59 L 05/10/24 11:12 Pulse Ox 94 05/10/24 11:12 O2 Del Method Room Air 05/10/24 11:12 BMI result Body Mass Index 27.8 Const: General: cooperative, comfortable, alert and awake Nutritional Appearance: average body habitus Orientation/consciousness: patient oriented x3 Resp: Effort & Inspection: normal respiratory effort, able to speak in complete sentences, no respiratory distress and no use of accessory muscles GI: Inspection: No distended Palpation (GI): Soft to palpation Neuro: General: patient oriented x3, moves all extremities and CN's II-XI intact bilaterally Objective Data Active Medications Acetaminophen (Acetaminophen 325 Mg Tablet) 650 mg PO Q6H PRN PRN Reason: Pain, Mild 1-3,fever,headache Calcium Carbonate (Calcium Carbonate 750 Mg Tab.Chew) 750 mg PO Q4H PRN PRN Reason: Heartburn Doxepin HCl (Doxepin Hcl 25 Mg Capsule) 25 mg PO BEDTIME [facility] Last Admin: 05/09/24 21:21 Dose: 25 mg Documented By: POLINA Enoxaparin Sodium (Enoxaparin Sodium 80 Mg/0.8 Ml Syringe) 80 mg 1 mg/kg (80 mg) SUBCUT Q12H [facility] Last Admin: 05/10/24 08:12 Dose: 80 mg Documented By: LUDMILA Escitalopram Oxalate (Escitalopram Oxalate 20 Mg Tablet) 20 mg PO DAILY [facility] Last Admin: 05/10/24 08:12 Dose: 20 mg Documented By: LUDMILA Lactated Ringer's (Lr) 1,000 mls @ 80 mls/hr IVCONT .[id number] [facility] Last Admin: 05/10/24 05:43 Dose: 80 mls/hr Documented By: POLINA Magnesium Hydroxide (Milk Of Magnesia 30 Ml Oral.Susp) 30 ml PO DAILY PRN PRN Reason: Constipation Melatonin (Melatonin 3 Mg Tablet) 6 mg PO BEDTIME PRN PRN Reason: Insomnia Metoprolol Succinate (Metoprolol Succinate Er 25 Mg Tab.Er.24h) 25 mg PO DAILY [facility]; Protocol Last Admin: 05/10/24 08:11 Dose: 25 mg Documented By: LUDMILA Ondansetron HCl (Ondansetron Hcl 4 Mg/2 Ml Vial) 4 mg IVPUSH Q8H PRN PRN Reason: Nausea and Vomiting Pantoprazole Sodium (Pantoprazole Sodium 20 Mg Tablet.Dr) 40 mg PO DAILY@0630 [facility] Last Admin: 05/10/24 05:42 Dose: 40 mg Documented By: POLINA Sodium Chloride (0.9 % Sodium Chloride Flush 3 Ml Syringe) 3 ml IVFLUSH QSHIFT [facility] Last Admin: 05/10/24 08:12 Dose: 3 ml Documented By: LUDMILA Labs 05/08/24 07:16 05/10/24 08:40 Labs: Laboratory Results - last 24 hr 05/10/24 08:40 Anion Gap 8 L Estim Creat Clear Calc 37.0 Estimated GFR 45 Random Glucose 81 Calcium 8.4 Assessment and Plan (1) Renal mass: Status: Acute (2) DVT (deep venous thrombosis): Status: Acute (3) Orthostatic hypotension: Status: Acute (4) Acute on chronic renal insufficiency: Status: Acute Plan This is a 79-year-old male with pertinent history of hypertension, gastroesophageal reflux disease, mood disorder, who presented to the emergency department for evaluation of dizziness/lightheadedness found to be orthostatic Orthostatic presyncope: Orthostatic vital signs noted to be positive in the ER improved with IVF Left lower extremity DVT: initially started on Eliquis - will need kidney biopsy, will transition to therapeutic Lovenox Can be discharged on oral Eliquis KIM, Unknown baseline kidney function continues to improve; SCr from 3.4 to 1.5 Hold lisinopril, chlorthalidone follow BMP Kidney mass CT scan showing left kidney mass and bladder wall thickening concerning for malignancy seen by Urology plan for kidney biopsy Saturday, will transition anticoagulation to therapeutic Lovenox until after procedure. NPO at midnight, hold lovenox for procedure Mood disorder: Continue home mood stabilizers Hypertension: bp low Hold lisinopril and chlorthalidone Gastroesophageal reflux disease: continue PPI mild elevation in trops remain flat no chest pain, likely due to decreased renal clearance echo normal thrombocytopenia unclear chronicity platelets stable DVT prophylaxis: Eliquis --> transitioning to lovenox Full code PT rec STR when medically ready for discharge Requires ongoing inpatient stay for management of KIM and new kidney mass requiring specialist evaluation and biopsy Quality Stroke Does the patient have a stroke diagnosis?: No VTE Prior VTE?: No VTE Risk Level:: Medical - moderate - high VTE Device Contraindication: Treatment Not Indicated VTE Drug Contraindication: N/A - Med Ordered
--- NOTE | 2024-05-10 13:07 | MHC.CM.PN ---
[facility] BEING RECOMMENDED HCP COMPLETED TODAY NAMING PTS GRANDLUANN MYLENE, HIS AGENT LIST OF BED OFFERS PROVIDED, PT AND GRANDSON WILL REVIEW
[2024-05-10] MEDS: Doxepin HCl 25 MG CAPSULE PO (21:16)
[2024-05-11 03:34] VITALS: BP 111/59; PULSE 75; RESP 18; TEMP 36.8; O2SAT 95
[2024-05-11 06:39] LABS: Hematocrit 33.8 % (42.0-52.0); Hemoglobin 11.5 g/dl (14.0-18.0); Mean Corpuscular Hemoglobin 31.8 pg (27.0-33.0); Mean Corpuscular Volume 93.4 fL (80.0-98.0); Mean Platelet Volume 10.3 fL (9.4-12.4); Platelet Count 172 X10*3/uL (160-400); Red Blood Count 3.62 X10*6/uL (4.60-5.80); Red Cell Distribution Width 13.3 % (11.0-16.0); White Blood Count 8.4 X10*3/uL (4.8-10.8)
[2024-05-11 06:49] LABS: Anion Gap 10 (12-20); Blood Urea Nitrogen 33 mg/dL (9-16); Calcium 8.5 mg/dL (8.4-10.2); Carbon Dioxide 26 mmol/L (22-29); Chloride 107 mmol/L (96-108); Creatinine Clr Calc Pharmacy 35.8; Estimated Glomerular Filt Rate 43; Glucose Random 89 mg/dL (60-115); Potassium 4.2 mmol/L (3.3-5.1); Sodium 139 mmol/L (135-145)
[2024-05-11 07:16] VITALS: BP 107/63; PULSE 76; RESP 20; TEMP 36.1; O2SAT 95
[2024-05-11] MEDS: 0.9 % Sodium Chloride Flush 3 ML SYRINGE IVFLUSH ×3 (07:39→23:13)
--- NOTE | 2024-05-11 07:53 | P.PNUR_ITS ---
Subjective Subjective Date of Service: 05/11/24 Interval history: Has been NPO and anticoagulation held for renal biopsy today Order placed Physical Exam 2 Vital Signs: Vital Signs: Last Vital Signs Temp 97.0 F 05/11/24 07:16 Pulse 76 05/11/24 07:16 Resp 20 05/11/24 07:16 BP 107/63 05/11/24 07:16 Pulse Ox 95 05/11/24 07:16 O2 Del Method Room Air 05/11/24 07:16 BMI result Body Mass Index 27.8 Const: General: cooperative, healthy appearing, comfortable and no acute distress Orientation/consciousness: patient oriented x3 HEENT: Face and sinus: Yes normal facial exam Mouth: moist mucous membranes Neck: Neck: Yes normal visual inspection, Yes full ROM and Yes trachea midline Chest: Chest palpation & inspection: normal inspection of the chest Resp: Effort & Inspection: normal respiratory effort, able to speak in complete sentences and no respiratory distress GI: Inspection: Yes normal to inspection Back/Spine/Pelvis: Cervical Spine: normal cervical lordosis Thoracic/Lumbar Spine: thoracic and lumbar spine normal to inspection Skin: General skin exam: no rashes or lesions noted Neuro: General: patient oriented x3, tone normal and moves all extremities Extrem: General: Yes normal to inspection and Yes capillary refill normal Urology Results Labs 05/11/24 05:42 05/11/24 05:42 Labs: Laboratory Results - last 24 hr 05/10/24 05/11/24 08:40 05:42 WBC 8.4 RBC 3.62 L Hgb 11.5 L Hct 33.8 L MCV 93.4 MCH 31.8 MCHC 34.0 RDW 13.3 Plt Count 172 D MPV 10.3 Absolute Nucleated RBC 0.000 Nucleated RBC % (auto) 0.0 Sodium 138 139 Potassium 4.1 4.2 Chloride 107 107 Carbon Dioxide 27 26 Anion Gap 8 L 10 L BUN 32 H 33 H Creatinine 1.51 H 1.56 H Estim Creat Clear Calc 37.0 35.8 Estimated GFR 45 43 Random Glucose 81 89 Calcium 8.4 8.5 Progress Note: A&P Assessment and plan (1) Renal mass: Status: Acute Plan Renal biopsy planned Time Spent With Patient Time: Total time managing care of this patient today ____ minutes. Progress Note: Quality Stroke Does the patient have a stroke diagnosis?: No
[2024-05-11] MEDS: Metoprolol Succinate ER 25 MG TAB.ER.24H PO (08:57)
[2024-05-11] MEDS: Escitalopram Oxalate 20 MG TABLET PO (08:57)
[2024-05-11 10:54] VITALS: BP 118/56; PULSE 73; RESP 18; TEMP 36.6; O2SAT 96
--- NOTE | 2024-05-11 12:22 | HO.PM.IMPN ---
Subjective Subjective Date of Service: 05/11/24 Interval History: seen and examined this morning follow up for KIM, orthostasis, new DVT, renal mass feels well, no dizziness Review of Systems Review of Systems: Yes all other systems are reviewed and are negative Constitutional Constitutional: Denies chills and Denies fever(s) Cardiovascular Cardiovascular: Denies chest pain, Denies palpitations and Denies dyspnea Respiratory Respiratory: Denies cough and Denies dyspnea Gastrointestinal Gastrointestinal: Denies abdominal pain Endocrine Endocrine: Denies palpitations Physical Exam Vital Signs: Vital Signs: Last Vital Signs Temp 97.8 F 05/11/24 10:54 Pulse 73 05/11/24 10:54 Resp 18 05/11/24 10:54 BP 118/56 L 05/11/24 10:54 Pulse Ox 96 05/11/24 10:54 O2 Del Method Room Air 05/11/24 10:54 BMI result Body Mass Index 27.8 Appearing in no acute distress lung sounds are clear to auscultation heart regular rate rhythm, clear S1, S2 positive bowel sounds, abdomen is soft, nontender neuro patient is alert x3, no focal deficits Objective Data Active Medications Acetaminophen (Acetaminophen 325 Mg Tablet) 650 mg PO Q6H PRN PRN Reason: Pain, Mild 1-3,fever,headache Calcium Carbonate (Calcium Carbonate 750 Mg Tab.Chew) 750 mg PO Q4H PRN PRN Reason: Heartburn Doxepin HCl (Doxepin Hcl 25 Mg Capsule) 25 mg PO BEDTIME [facility] Last Admin: 05/10/24 21:16 Dose: 25 mg Documented By: MARKY Enoxaparin Sodium (Enoxaparin Sodium 80 Mg/0.8 Ml Syringe) 80 mg 1 mg/kg (80 mg) SUBCUT Q12H [facility] Last Admin: 05/10/24 08:12 Dose: 80 mg Documented By: LUDMILA Escitalopram Oxalate (Escitalopram Oxalate 20 Mg Tablet) 20 mg PO DAILY [facility] Last Admin: 05/11/24 08:57 Dose: 20 mg Documented By: LUDMILA Magnesium Hydroxide (Milk Of Magnesia 30 Ml Oral.Susp) 30 ml PO DAILY PRN PRN Reason: Constipation Melatonin (Melatonin 3 Mg Tablet) 6 mg PO BEDTIME PRN PRN Reason: Insomnia Metoprolol Succinate (Metoprolol Succinate Er 25 Mg Tab.Er.24h) 25 mg PO DAILY [facility]; Protocol Last Admin: 05/11/24 08:57 Dose: 25 mg Documented By: LUDMILA Ondansetron HCl (Ondansetron Hcl 4 Mg/2 Ml Vial) 4 mg IVPUSH Q8H PRN PRN Reason: Nausea and Vomiting Pantoprazole Sodium (Pantoprazole Sodium 20 Mg Tablet.) 40 mg PO DAILY@0630 [facility] Last Admin: 05/11/24 06:07 Dose: Not Given Documented By: ANDRÉS Non-Admin Reason: NPO Sodium Chloride (0.9 % Sodium Chloride Flush 3 Ml Syringe) 3 ml IVFLUSH QSHIFT [facility] Last Admin: 05/11/24 07:39 Dose: 3 ml Documented By: LUDMILA Labs 05/11/24 05:42 05/11/24 05:42 Labs: Laboratory Results - last 24 hr 05/11/24 05:42 MCV 93.4 MCH 31.8 MCHC 34.0 RDW 13.3 Plt Count 172 D MPV 10.3 Absolute Nucleated RBC 0.000 Nucleated RBC % (auto) 0.0 Anion Gap 10 L Estim Creat Clear Calc 35.8 Estimated GFR 43 Random Glucose 89 Calcium 8.5 Assessment and Plan (1) Renal mass: Status: Acute (2) DVT (deep venous thrombosis): Status: Acute (3) Orthostatic hypotension: Status: Acute (4) Acute on chronic renal insufficiency: Status: Acute Plan This is a 79-year-old male with pertinent history of hypertension, gastroesophageal reflux disease, mood disorder, who presented to the emergency department for evaluation of dizziness/lightheadedness found to be orthostatic Orthostatic presyncope Orthostatic vital signs noted to be positive in the ER improved with IVF Left lower extremity DVT initially started on Eliquis - will need kidney biopsy, will transition to therapeutic Lovenox Can be discharged on oral Eliquis KIM, Unknown baseline kidney function continues to improve; SCr from 3.4 to 1.5 Hold lisinopril, chlorthalidone follow BMP Kidney mass CT scan showing left kidney mass and bladder wall thickening concerning for malignancy seen by Urology plan for kidney biopsy , transitioned anticoagulation to therapeutic Lovenox until after procedure. NPO at midnight, hold lovenox for procedure Mood disorder Continue home mood stabilizers Hypertension bp low Hold lisinopril and chlorthalidone Gastroesophageal reflux disease: continue PPI mild elevation in trops remain flat no chest pain, likely due to decreased renal clearance echo normal thrombocytopenia unclear chronicity platelets stable DVT prophylaxis: Eliquis --> transitioning to lovenox Full code PT rec STR when medically ready for discharge Requires ongoing inpatient stay for management of KIM and new kidney mass requiring specialist evaluation and biopsy Quality Stroke Does the patient have a stroke diagnosis?: No VTE Prior VTE?: No VTE Risk Level:: Medical - moderate - high VTE Device Contraindication: Treatment Not Indicated VTE Drug Contraindication: N/A - Med Ordered
--- NOTE | 2024-05-11 15:04 | MHC.CM.PN ---
Per rounds and EMR review, pt. is not ready to DC. STR referrals are out, CM spoke to pt. today about his choice, he wanted grandson / HCP, Fernando to be part of discussion, CM asked for Pt.'s permission to call Fernando pt in agreement. Fernando stated first choice, [facility], second choice, [facility] CM to follow for DC needs.
[2024-05-11 15:19] VITALS: BP 118/56; PULSE 73; O2SAT 96
[2024-05-11 15:21] VITALS: BP 122/62; PULSE 77; RESP 18; TEMP 36.1; O2SAT 94
[2024-05-11 19:48] VITALS: BP 111/55; PULSE 72; RESP 20; TEMP 36.6; O2SAT 93
[2024-05-11] MEDS: Enoxaparin Sodium 80 MG/0.8 ML SYRINGE SUBCUT (23:12)
[2024-05-11] MEDS: Doxepin HCl 25 MG CAPSULE PO (23:13)
[2024-05-11] MEDS: Acetaminophen 325 MG TABLET 650 MG PO (23:16)
[2024-05-12] VITALS (7 sets, daily range): BP systolic 96–131; BP diastolic 54–66; PULSE 73–91; RESP 18–20; TEMP 35.8–36.7; O2SAT 93–96
[2024-05-12] MEDS: Pantoprazole Sodium 20 MG TABLET.DR 40 MG PO (05:27)
[2024-05-12] MEDS: Metoprolol Succinate ER 25 MG TAB.ER.24H PO (08:35)
[2024-05-12] MEDS: 0.9 % Sodium Chloride Flush 3 ML SYRINGE IVFLUSH ×3 (08:35→21:34)
[2024-05-12] MEDS: Escitalopram Oxalate 20 MG TABLET PO (08:35)
[2024-05-12] MEDS: Apixaban 5 MG TABLET 10 MG PO ×2 (08:35→21:34)
--- NOTE | 2024-05-12 10:39 | HO.WOUND ---
Wound Consult: Initial 79yr old?male admitted to [facility] on 05/07/24 - See progress notes and H&P for detailed history.? Wound consult placed for Bilateral arm skin tears.? Patient agreeable to assessment and photo documentation.? Patient is not able to recall the injury that caused the wounds. Left arm Right Arm Etiology: ?Skin Tears Wound Bed: partial thickness tissue loss - clean red wound beds - Right arm with partial flap in place reapproximated Drainage / Odor: serosang drainage no odor Edges: ? attached and irregular Criselda wound: dry thin tissue intact - ? No Induration, Fluctuance or Warmth noted Pain: denies Goals of Treatment: ? xeroform for moist wound healing Recommendations: 1. Bilateral arm skin tears - Cleanse with normal saline, pat dry. ?Apply Xeroform secure with Abd pads, gauze wrap and tape. Change Daily. ?Do not apply tape to patient?s skin.? Avoid Adhesive application to skin - when necessary, apply skin prep prior.? Re-consult wound care Nurse for wound deterioration or wound changes.
--- NOTE | 2024-05-12 10:54 | HO.PM.IMPN ---
Subjective Subjective Date of Service: 05/12/24 Interval History: seen and examined this morning follow up for KIM, orthostasis, new DVT, renal mass feels well, no dizziness Review of Systems Review of Systems: Yes all other systems are reviewed and are negative Constitutional Constitutional: Denies chills and Denies fever(s) Cardiovascular Cardiovascular: Denies chest pain, Denies palpitations and Denies dyspnea Respiratory Respiratory: Denies cough and Denies dyspnea Gastrointestinal Gastrointestinal: Denies abdominal pain Endocrine Endocrine: Denies palpitations Physical Exam Vital Signs: Vital Signs: Last Vital Signs Temp 96.5 F L 05/12/24 07:17 Pulse 73 05/12/24 07:17 Resp 18 05/12/24 07:17 BP 131/63 05/12/24 07:17 Pulse Ox 94 05/12/24 07:17 O2 Del Method Room Air 05/12/24 07:17 BMI result Body Mass Index 27.8 Appearing in no acute distress lung sounds are clear to auscultation heart regular rate rhythm, clear S1, S2 positive bowel sounds, abdomen is soft, nontender neuro patient is alert x3, no focal deficits Objective Data Active Medications Acetaminophen (Acetaminophen 325 Mg Tablet) 650 mg PO Q6H PRN PRN Reason: Pain, Mild 1-3,fever,headache Last Admin: 05/11/24 23:16 Dose: 650 mg Documented By: MAN Apixaban (Apixaban 5 Mg Tablet) 10 mg PO BID [facility] Stop: 05/18/24 21:01 Last Admin: 05/12/24 08:35 Dose: 10 mg Documented By: NAYANA Calcium Carbonate (Calcium Carbonate 750 Mg Tab.Chew) 750 mg PO Q4H PRN PRN Reason: Heartburn Doxepin HCl (Doxepin Hcl 25 Mg Capsule) 25 mg PO BEDTIME [facility] Last Admin: 05/11/24 23:13 Dose: 25 mg Documented By: MAN Escitalopram Oxalate (Escitalopram Oxalate 20 Mg Tablet) 20 mg PO DAILY [facility] Last Admin: 05/12/24 08:35 Dose: 20 mg Documented By: NAYANA Magnesium Hydroxide (Milk Of Magnesia 30 Ml Oral.Susp) 30 ml PO DAILY PRN PRN Reason: Constipation Melatonin (Melatonin 3 Mg Tablet) 6 mg PO BEDTIME PRN PRN Reason: Insomnia Metoprolol Succinate (Metoprolol Succinate Er 25 Mg Tab.Er.24h) 25 mg PO DAILY [facility]; Protocol Last Admin: 05/12/24 08:35 Dose: 25 mg Documented By: NAYANA Ondansetron HCl (Ondansetron Hcl 4 Mg/2 Ml Vial) 4 mg IVPUSH Q8H PRN PRN Reason: Nausea and Vomiting Pantoprazole Sodium (Pantoprazole Sodium 20 Mg Tablet.Dr) 40 mg PO DAILY@0630 [facility] Last Admin: 05/12/24 05:27 Dose: 40 mg Documented By: MAN Sodium Chloride (0.9 % Sodium Chloride Flush 3 Ml Syringe) 3 ml IVFLUSH QSHIFT [facility] Last Admin: 05/12/24 08:35 Dose: 3 ml Documented By: NAYANA Labs 05/11/24 05:42 05/11/24 05:42 Assessment and Plan (1) Renal mass: Status: Acute (2) DVT (deep venous thrombosis): Status: Acute (3) Orthostatic hypotension: Status: Acute (4) Acute on chronic renal insufficiency: Status: Acute Plan This is a 79-year-old male with pertinent history of hypertension, gastroesophageal reflux disease, mood disorder, who presented to the emergency department for evaluation of dizziness/lightheadedness found to be orthostatic Orthostatic presyncope Orthostatic vital signs noted to be positive in the ER improved with IVF Left lower extremity DVT initially started on Eliquis - will need kidney biopsy, will transition to therapeutic Lovenox Can be discharged on oral Eliquis KIM, Unknown baseline kidney function continues to improve; SCr from 3.4 to 1.5 Hold lisinopril, chlorthalidone follow BMP Kidney mass CT scan showing left kidney mass and bladder wall thickening concerning for malignancy seen by Urology, plan for kidney biopsy outpatient Mood disorder Continue home mood stabilizers Hypertension bp low Hold lisinopril and chlorthalidone Gastroesophageal reflux disease continue PPI mild elevation in trops remain flat no chest pain, likely due to decreased renal clearance echo normal thrombocytopenia unclear chronicity platelets stable DVT prophylaxis: Eliquis Full code PT rec STR when medically ready for discharge Requires ongoing inpatient stay for management of KIM and new kidney mass requiring specialist evaluation and biopsy Quality Stroke Does the patient have a stroke diagnosis?: No VTE Prior VTE?: No VTE Risk Level:: Medical - moderate - high VTE Device Contraindication: Treatment Not Indicated VTE Drug Contraindication: N/A - Med Ordered
--- NOTE | 2024-05-12 16:09 | MHC.CM.PN ---
Second IMM given 05/12. Pt is medically cleared for discharge to [facility], bed offer received from [facility], pt accepts the bed offer. [facility] is not able to take pt until tomorrow 05/13. Hospitalist updated. Per pts request, pts grandson/HCP Fernando notified by this CM of the discharge plan. [facility] pre-booked for tomorrow 05/13.
[2024-05-12] MEDS: Acetaminophen 325 MG TABLET 650 MG PO (21:33)
[2024-05-12] MEDS: Doxepin HCl 25 MG CAPSULE PO (21:34)
[2024-05-13] VITALS: BP 106/63; PULSE 88; RESP 16; TEMP 36.8; O2SAT 95
[2024-05-13 04:00] VITALS: BP 100/53; PULSE 70; RESP 16; TEMP 36.8; O2SAT 95
[2024-05-13] MEDS: Pantoprazole Sodium 20 MG TABLET.DR 40 MG PO (07:23)
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
[2024-05-13 07:31] VITALS: BP 103/58; PULSE 68; RESP 17; TEMP 36; O2SAT 94
[2024-05-13 08:49] VITALS: BP 106/58; PULSE 68
[2024-05-13] MEDS: Escitalopram Oxalate 20 MG TABLET PO (08:49)
[2024-05-13] MEDS: Metoprolol Succinate ER 25 MG TAB.ER.24H PO (08:49)
[2024-05-13] MEDS: Apixaban 5 MG TABLET 10 MG PO (08:49)
[2024-05-13] MEDS: 0.9 % Sodium Chloride Flush 3 ML SYRINGE IVFLUSH (08:50)
--- NOTE | 2024-05-13 10:53 | MHC.CM.PN ---
Pt is medically cleared for discharge to [facility] at [facility] today, he will transport there via BLS/Rodrigo.
[2024-05-13 11:11] VITALS: BP 101/54; PULSE 79; RESP 20; TEMP 36.1; O2SAT 94
== END 2024-05-13 13:30 | disposition skilled nursing facility (03) | DRG 312 ==
LOC: HO.ED 21:35 → HO.EDOVER 22:10 → HO.IMC 05-07 15:10
PROVIDERS: Physician Assistant; Physician Assistant Medical; Admitting Provider Student in an Organized Health Care Education/Training Program; Emergency Provider Emergency Medicine; Visit Provider Nurse Practitioner Acute Care
DX: I95.1 Orthostatic hypotension (principal); C64.2 Malignant neoplasm of left kidney, except renal pelvis; I82.412 Acute embolism and thrombosis of left femoral vein; I12.9 Hypertensive chronic kidney disease with stage 1 through stage 4 chronic kidney disease, or unspecified chronic kidney disease; N18.9 Chronic kidney disease, unspecified; D69.6 Thrombocytopenia, unspecified; K21.9 Gastro-esophageal reflux disease without esophagitis; Z20.822 Contact with and (suspected) exposure to COVID-19; Z79.899 Other long term (current) drug therapy
CPT/HCPCS: 0241U; 36415; 71045; 74176; 80048; 80076; 81001; 83735; 84484; 85025; 85027; 85610; 87086; 93005; 93306; 93970; 97162; 97530; 99222; 99285; J1650; J7120; Q9957

== ENCOUNTER → 2024-05-06 19:06 | Outpatient (BNV) | payer MEDICARE, SELFPAY | PROVIDERS: Admitting Provider Student in an Organized Health Care Education/Training Program; Emergency Provider Emergency Medicine; Visit Provider Internal Medicine | DX: R94.31 Abnormal electrocardiogram [ECG] [EKG] (principal) | CPT/HCPCS: 93010 ==

== ENCOUNTER → 2024-05-06 19:06 | Outpatient (BNV) | payer MEDICARE, SELFPAY | PROVIDERS: Visit Provider Radiology Diagnostic Radiology | DX: I82.412 Acute embolism and thrombosis of left femoral vein (principal); K44.9 Diaphragmatic hernia without obstruction or gangrene | CPT/HCPCS: 71045; 93970 ==

== ENCOUNTER → 2024-05-06 21:48 | Outpatient (BNV) | payer MEDICARE, SELFPAY | PROVIDERS: Admitting Provider Student in an Organized Health Care Education/Training Program; Emergency Provider Emergency Medicine; Visit Provider Student in an Organized Health Care Education/Training Program | DX: N28.89 Other specified disorders of kidney and ureter (principal); I82.409 Acute embolism and thrombosis of unspecified deep veins of unspecified lower extremity; I95.1 Orthostatic hypotension; N28.9 Disorder of kidney and ureter, unspecified; N18.9 Chronic kidney disease, unspecified | CPT/HCPCS: 99232; 99233 ==

== ENCOUNTER → 2024-05-07 07:00 | Outpatient (BNV) | payer MEDICARE, SELFPAY | PROVIDERS: Admitting Provider Student in an Organized Health Care Education/Training Program; Emergency Provider Emergency Medicine; Visit Provider Internal Medicine | DX: R55 Syncope and collapse (principal) | CPT/HCPCS: 93306 ==

== ENCOUNTER 2024-05-07 10:09 | Outpatient (BNV) | payer MEDICARE, SELFPAY | END 2024-05-07 11:29 | PROVIDERS: Admitting Provider Student in an Organized Health Care Education/Training Program; Emergency Provider Emergency Medicine; Visit Provider Radiology Diagnostic Radiology | DX: D41.02 Neoplasm of uncertain behavior of left kidney (principal) | CPT/HCPCS: 74176 ==

== ENCOUNTER → 2024-05-07 10:09 | Outpatient (BNV) | payer MEDICARE, SELFPAY | PROVIDERS: Admitting Provider Student in an Organized Health Care Education/Training Program; Emergency Provider Emergency Medicine; Visit Provider Urology | DX: N28.89 Other specified disorders of kidney and ureter (principal); N18.9 Chronic kidney disease, unspecified | CPT/HCPCS: 99222; 99232 ==

== ENCOUNTER → 2024-06-03 09:24 | Outpatient (BNVA) | payer MEDICARE, SELFPAY | PROVIDERS: Visit Provider Urology ==

== ENCOUNTER 2024-12-04 07:08 | Outpatient (REF) | payer MEDICARE, SELFPAY ==
--- NOTE | ~2024-12-04 | CT_ITS ---
CLINICAL HISTORY: N28.89 - Other specified disorders of kidney and ureter CT abdomen without contrast Comparison: 05/07/2024 Findings: The lung bases are clear. There is a sliding-type hiatal hernia. There are bilateral renal masses, unchanged including possible left Bosniak 2F cyst. The gallbladder and solid organs are otherwise within normal limits. No renal stones. No bowel obstruction, pneumoperitoneum, or pneumatosis. The bones are intact. IMPRESSION: No acute findings. This document has been electronically signed by: Golden Mg MD on 12/04/2024 08:50:22
== END 2024-12-04 07:09 | disposition home or self-care (01) ==
LOC: HO.CT 07:08
PROVIDERS: PCP Family Medicine; Visit Provider Urology
DX: N28.89 Other specified disorders of kidney and ureter (principal)
CPT/HCPCS: 74150

== ENCOUNTER → 2024-12-04 07:10 | Outpatient (BNV) | payer MEDICARE, SELFPAY | PROVIDERS: PCP Family Medicine; Visit Provider Specialist | DX: D49.511 Neoplasm of unspecified behavior of right kidney (principal) | CPT/HCPCS: 74150 ==

== ENCOUNTER → 2024-12-10 07:00 | Outpatient (BNV) | payer MEDICARE, SELFPAY | PROVIDERS: Admitting Provider Family Medicine; Emergency Provider Emergency Medicine; PCP Family Medicine; Visit Provider Internal Medicine Cardiovascular Disease | DX: I63.9 Cerebral infarction, unspecified (principal); I51.7 Cardiomegaly; W19.XXXA Unspecified fall, initial encounter | CPT/HCPCS: 93010; 93306 ==

== ENCOUNTER 2024-12-10 07:34 | Inpatient (IN) | payer MEDICARE, SELFPAY ==
[2024-12-10] VITALS (12 sets, daily range): BP systolic 131–180; BP diastolic 52–85; PULSE 70–91; RESP 12–20; TEMP 36.4–36.8; O2SAT 92–100; BMI 27.7; BMI 28.5
--- NOTE | ~2024-12-10 | CT_ITS ---
CLINICAL HISTORY: Assess for retroperitoneal bleeding CT abdomen and pelvis with contrast Comparison: US - US RENAL BI - 12/17/24 17:[address]/REG/SR - CT ABDOMEN WO IV CON - 12/04/24 07:19 EDT Findings: Please see same-day CT chest report for discussion of chest findings. There are multiple bilateral renal cysts. Emanating from the lateral left kidney there is a 8.9 x 7.3 x 7.5 cm cyst measuring 17 Hounsfield units internally. There appears to be some calcifications within the wall of the cyst. This lesion is not changed in size in comparison to prior. On prior ultrasound this appears to be a heterogeneous structure. Nonobstructing right renal calculus. No hydronephrosis of either kidney. No bowel obstruction, pneumoperitoneum, or pneumatosis. No retroperitoneal lymphadenopathy. There is a left rectus sheath hematoma measuring 3.0 x 7.6 x 14.3 cm. No active contrast extravasation is seen. There is soft tissue stranding over the left anterior abdomen. Prostate gland is enlarged. The bones are intact. Degenerative changes of the lumbar spine. No intraperitoneal fluid or blood. IMPRESSION: 1. Left rectus sheath hematoma measuring 3.0 x 7.6 x 14.3 cm. 2. 8.9 x 7.3 x 7.5 cm complex left renal lesion, suggested to be a mass on previous ultrasound, with some wall calcifications. Recommend multiphase renal CT or MRI for further characterization. This document has been electronically signed by: Talha Man MD on 12/20/2024 00:57:14
--- NOTE | ~2024-12-10 | XR_ITS ---
EXAMINATION: XR CHEST 1 VIEW HISTORY: cough, weakness COMPARISON: Comparison is made with the prior examination dated 05/06/2024. FINDINGS: A single AP portable view of the chest performed at 8:45 AM is submitted. The lungs are expanded and clear. There is no pleural effusion, pneumothorax, or pulmonary vascular congestion. The heart is normal in size. There is a small hiatal hernia. There is degenerative disc disease of the spine. XR/XR chest 1V IMPRESSION: Small hiatal hernia. No acute cardiopulmonary abnormality. Electronically signed by: Kevin Arreola MD 12/10/2024 08:59 AM EDT
--- NOTE | ~2024-12-10 | XR_ITS ---
EXAMINATION: XR CHEST CLINICAL INFORMATION: hypoxia COMPARISON: December 16, 2024 TECHNIQUE: Frontal view of the chest was obtained. FINDINGS: Headache density is present in the lateral aspect of the mid third to lower third right lung. There are low lung volumes. There is vascular crowding. Chronic size is within normal limits. Left basilar atelectasis persists bursal perinephric. XR/XR chest 1V IMPRESSION: Developing opacity in the lateral aspect at the junction of middle third and lower third right lung zones raises question of early changes of pneumonia. Electronically signed by: Perry Miguel MD 12/17/2024 01:06 PM EDT RP
--- NOTE | ~2024-12-10 | XR_ITS ---
CLINICAL HISTORY: re-eval previous asp pna 1 view chest x-ray Comparison: CR/NC/SR - XR CHEST 1 VIEW - 12/10/24 08:45 EDT Findings: No pleural effusion. Small opacity of the left lung base. Normal size heart. No acute fracture. IMPRESSION: Mild atelectasis/infiltrate of the left lung base. This document has been electronically signed by: Jennifer Mata MD on 12/13/2024 16:34:07
--- NOTE | ~2024-12-10 | CT_ITS ---
CLINICAL HISTORY: Coughing up dark brown sputum CT chest with contrast Comparison: CR - XR CHEST 1V - 12/13/24 15:22 EDT Findings: Mild cardiomegaly. Coronary artery calcifications are present. The esophagus is diffusely abnormal, with diffuse wall thickening and enlargement. Esophagus is also diffusely fluid-filled. There is a small hiatal hernia present. Wall thickening of the proximal stomach also present. No mediastinal lymphadenopathy. Moderate right and small left pleural effusions. Bilateral basilar atelectasis. There is bronchiectasis at the left lung base. There is a partially visualized 8.6 cm cystic lesion emanating from the left kidney. There is a smaller 4.2 cystic lesion also partially seen, emanating from the left kidney. No acute fractures. Mild S shaped scoliosis of the thoracolumbar spine. No lytic bone lesion seen. IMPRESSION: 1. Diffuse thickening of the esophageal wall and proximal stomach concerning for esophagitis or malignancy. 2. Esophagus is fluid-filled raising concern for reflux and/or aspiration. 3. Moderate right and small left pleural effusions This document has been electronically signed by: Talha Man MD on 12/20/2024 00:49:52
--- NOTE | ~2024-12-10 | XR_ITS ---
CLINICAL HISTORY: hypoxia 1 view chest x-ray Comparison: CR/SR - XR CHEST 1 VIEW - 12/17/24 12:44 EDT Findings: The lungs are clear. Borderline heart size. Tortuous aorta. No acute fracture. IMPRESSION: 1. No acute findings. This document has been electronically signed by: Grace Kendall MD on 12/19/2024 14:10:56
--- NOTE | ~2024-12-10 | CT_ITS ---
EXAMINATION: CTA NECK WITH CONTRAST (STROKE) CTA BRAIN WITH CONTRAST (STROKE) CLINICAL INFORMATION: Left-sided facial droop and dysarthria. Suspect acute stroke. Assess for major vessel occlusion. Please call report. COMPARISON: Correlated to noncontrast CT brain dated December 10, 2024. TECHNIQUE: CTA of the head and neck was performed in the axial plane from the mediastinum to the skull vertex using 70 mL Omnipaque 350 intravenous contrast. Additional reformatted multiplanar images including maximum intensity projection MIP images are generated on the CT workstation. This CT examination was performed using dose optimization techniques as appropriate, variously including the following: *Automated exposure control *Adjustment of mA and/or kV according to patient size (this includes techniques or standardized protocols for targeted exams where dose is matched to indication/reason for exam; i.e. extremities or head) *Use of iterative reconstruction technique DLP: 698 mGy centimeter. FINDINGS: The degree of stenosis determined by criteria similar to NASCET. Chest CTA: Calcified plaques in the aortic arch wall. No aneurysm or dissection. Calcified plaques at the origin of the main branches. Neck CTA: Right CCA: Normal patency. Tortuosity. No focal stenosis. No intimal flap. Right ICA: Irregularly-shaped mixed plaque in the proximal segment representing less than 40% stenosis. No intimal flap. Tortuosity in the distal segment. Left CCA: Normal patency. Tortuosity in the proximal segment. No focal stenosis. No intimal flap. Left ICA: Mixed plaques representing less than 20% stenosis. No intimal flap. Tortuosity in the midsegment. V1 and V2 segments: Normal patency. No focal stenosis. No intimal flap. Calcified plaques in the origin and the mid segment of the left vertebral artery at C4 level. Tortuosity. Codominant vertebral arteries. Brain CTA: Anterior cerebral circulation: ICAs: Calcified plaques in the cavernous supracavernous segments. Normal patency. No focal stenosis. No abrupt cut off. MCA's: Normal patency. No focal stenosis. No abrupt cut off. Bifurcation/trifurcation demonstrated no contour irregularity ACAs: Normal patency. No focal stenosis. No abrupt cut off. Anterior communicating artery is patent. Ophthalmic arteries are patent. Posterior communicating arteries are patent with small caliber. Posterior cerebral circulation: V3/V4 segments: Right vertebral artery is patent without focal stenosis or intimal flap. There is a noncalcified plaque with very little intraluminal enhancement extending from the origin of the left posterior inferior cerebral artery to the junction with the basilar artery. Posterior inferior cerebral arteries are patent, bilaterally. Basilar artery is patent without focal stenosis or intimal flap. Superior cerebellar arteries are patent. I do not see the anterior inferior cerebral arteries. rural mail carrier: Normal patency. No focal stenosis. No abrupt cut off. Ancillary findings: Main cerebral venous sinuses are patent with a dominant right transverse and right sigmoid sinus. No dominant nodules in the thyroid gland. No enhancing lesion within the intra-axial or the extra-axial compartment of the cranium. Bilateral multifocal patchy and confluent deep periventricular white matter hypodensities involving centrum semiovale and acosta radiata. There is a slight discrepancy prominent lateral ventricles with respect to a prominence of the extra-axial CSF spaces cerebral sulci. There is a pulmonary mosaic pattern. Questionable secretions within the trachea.. Punctate calcifications in the palatine tonsils likely tonsilliths. Multilevel cervical spondylosis. 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 Acute versus old. Irregular shaped mixed plaque representing 40% stenosis, right ICA. Mixed plaque proximal segment left ICA representing 20% stenosis. No cerebral aneurysm. This critical test result is communicated to: Emergency physician Dr. Yuliana Jones at 8:52 AM on December 10, 2024. Electronically signed by: Nathen Mora MD 12/10/2024 09:08 AM EDT
--- NOTE | ~2024-12-10 | FL_ITS ---
EXAMINATION: XR BARIUM SWALLOW CLINICAL INFORMATION: Aspiration. COMPARISON: None available. TECHNIQUE: Modified barium swallow was performed in lateral fluoroscopy position in presence of speech therapist and various consistencies of oral food coated with barium administered orally. Next FINDINGS: Following oral administration of thin barium there is normal propagation of bolus from the oral cavity through the pharynx into esophagus. There is trace laryngeal penetration and mild to moderate retention of food in piriform sinuses and minimal in the valleculae. Patient is unable to clear fluid in the piriform sinuses with subsequent dry swallowing. On oral administration of nectar consistency and barium coated solid food there is slow propagation of bolus from oral cavity through the pharynx into esophagus. There is moderate retention of food in the piriform sinuses and minimal retention of food in the valleculae. On 3 last images patient had laryngeal aspiration with nectar consistency barium. FLUOROSCOPY TIME: 2 minutes 3 seconds. DOSE AREA PRODUCT: 1524 uGy-m2 (microgray-meter squared) FL/FL Modified Barium Swallow IMPRESSION: Laryngeal penetration with thin barium. Large penetration or aspiration with nectar consistency barium. Please correlate with speech therapy report. Electronically signed by: Selvin Alcaraz MD 12/14/2024 03:05 PM EDT
--- NOTE | ~2024-12-10 | US_ITS ---
EXAMINATION: US RETROPERITONEAL LIMITED (RENAL ONLY) CLINICAL INFORMATION: KIM. COMPARISON: Correlated to CT dated December 04, 2024. TECHNIQUE: Real-time ultrasound kidneys using grayscale and color operative technique. FINDINGS: Limited examination secondary to patient's body habitus RIGHT KIDNEY: 11 x 5 x 4 cm (SAG x AP x TRV). Intermediate echotexture renal cortical thinning. No hydronephrosis. There is a 4.5 cm thin septated exophytic anechoic lesion in the midportion without flow on color Doppler interrogation. There is a 2.5 cm thick septated probably a partially calcified anechoic lesion in the midportion without flow on color Doppler interrogation. LEFT KIDNEY: 9 x 6 x 5 cm (SAG x AP x TRV). Intermediate echotexture. No renal cortical thinning. No hydronephrosis. There is a large, 7.5 cm septated hypoechoic exophytic lesion in the upper pole/midportion. There is a 3 cm exophytic anechoic lesion in the upper pole without color Doppler flow or septations. US/US renal BI IMPRESSION: No hydronephrosis. Concerning medical renal disease. Large, 7.5 cm septated lesion/mass, left kidney malignancy cannot be excluded. Septated the cystic lesion, right kidney. . Electronically signed by: Nathen Mora MD 12/18/2024 08:10 AM EDT
--- NOTE | ~2024-12-10 | CT_ITS ---
EXAMINATION: CT HEAD WITHOUT IV CONTRAST STROKE HISTORY: L sided facial droop, dysarthria. TECHNIQUE: Unenhanced helical CT of the head was performed per standard departmental protocol. Coronal and sagittal reformats of the head were also evaluated. One or more of the following techniques was used for dose reduction: Automated exposure control, adjustment of the mA and/or kV according to patient size, use of iterative reconstruction technique. DLP: 707 mGy-cm COMPARISON: There are no prior studies available for comparison. FINDINGS: BRAIN: There is diffuse prominence of the ventricular system and cortical sulci, consistent with atrophy. Periventricular and subcortical white matter hypodensities are noted which are nonspecific, but often seen in the setting of small vessel ischemic disease. There is no mass effect or midline shift. No intra- or extra-axial fluid collections are identified. SINUSES: The visualized paranasal sinuses are clear. The mastoid air cells and middle ear cavities are well pneumatized. ORBITS: The visualized orbits are unremarkable. BONES/SOFT TISSUES: The extracranial soft tissues are unremarkable. The calvarium is intact. No suspicious lytic or sclerotic lesions. CT/CT head for STROKE IMPRESSION: No evidence of intracranial hemorrhage. These findings were discussed with Dr. Jones in the emergency room on 12/10/2024 at 8:29 AM. Electronically signed by: Kevin Arreola MD 12/10/2024 08:29 AM EDT
--- NOTE | ~2024-12-10 | MR_ITS ---
CLINICAL HISTORY: suspected acute cva MR brain without contrast. COMPARISON: None provided. FINDINGS: Increased diffusion restriction within the medulla oblongata on the left. There is associated mildly increased T2/FLAIR signal. No intracranial hemorrhage. No evidence of mass, mass effect or midline shift. No intracranial hemorrhage or abnormal extra-axial fluid collection. The ventricles are proportional with the degree of moderate cerebral volume loss without evidence of hydrocephalus. Basilar cisterns are patent. Patchy hyperintense T2/FLAIR areas within the periventricular white matter and acosta radiata compatible with mild white matter small vessel disease. Cerebellar hemispheres and cerebellar vermis are normal. Fourth ventricle is normal. There is loss of normal flow void within the intracranial left vertebral artery. The visualized paranasal sinuses and mastoid air-cells are clear. IMPRESSION: 1. Acute diffusion restricting infarct within the medulla oblongata on the left. There is associated increased T2/FLAIR signal changes. 2. Slow flow or occlusion of the partially visualized intracranial left vertebral artery. 3. No intracranial hemorrhage. 4. Moderate global cerebral volume loss with mild white-matter small-vessel disease. This document has been electronically signed by: Wilfred Wilkins MD on 12/10/2024 18:24:39
--- NOTE | ~2024-12-10 | XR_ITS ---
EXAMINATION: XR CHEST CLINICAL INFORMATION: low o2 sat COMPARISON: 12/13/2024, 12/10/2024. TECHNIQUE: Frontal view of the chest was obtained. FINDINGS: Borderline cardiac enlargement. Mediastinal and hilar contours appear normal. There is a retrocardiac hiatus hernia present. The lungs are clear bilaterally. No pneumothorax or effusion. No focal osseous or soft tissue abnormality. XR/XR chest 1V IMPRESSION: No active pulmonary disease. Electronically signed by: Jake Freeman MD 12/16/2024 08:35 AM EDT
--- NOTE | 2024-12-10 07:00 | CA_ITS ---
Transthoracic Echocardiogram Patient (Last, First, Middle): Pawel Will F Gender: Male Date of : 1945 Age: 79 Procedure Date: 12/10/2024 Procedure Type: Transthoracic Echocardiogram Location: ER Height: 170.18 cm Weight: 79.83 kg BSA: 1.92 m2 Heart Rate: bpm BP: 162 / 71 mmHg Facility Maintenance Supervisor: TO Referring MD: Darshan Otero MD Symptoms: acute cva Study Quality: Fair/Contrast Conclusions: - Normal left ventricular size, thickness, systolic function, and wall motion. The visually estimated ejection fraction is between 55-60%. Diastolic function is normal for age. - Normal right ventricular cavity size and systolic function. - The left atrium is mildly dilated. Findings Procedure Information Contrast agent, definity, is being given per protocol without apparent complications. Left Ventricle Normal left ventricular size, thickness, systolic function, and wall motion. The visually estimated ejection fraction is between 55-60%. Diastolic function is normal for age. Right Ventricle Normal right ventricular cavity size and systolic function. Atria The left atrium is mildly dilated. The right atrium is normal in size. Aortic Valve Normal aortic valve structure and function. There is no aortic valve stenosis. There is no aortic valve regurgitation. Mitral Valve Normal mitral valve structure and function. There is no mitral valve regurgitation. There is no mitral valve stenosis. Pulmonic Valve The pulmonic valve is likely normal. Tricuspid Valve Normal tricuspid valve structure. There is no tricuspid valve regurgitation. The right ventricular systolic pressure is 32 mmHg. Normal right atrial pressure. There is no evidence of pulmonary hypertension. Great Vessels All visible segments of the aorta are normal in size. Venous The inferior vena cava is normal in size and collapses greater than 50% with inspiration. Pericardium/Pleural There is no evidence of pericardial effusion. Measurements 2D Linear Measurements IVSd: 0.88 0.6-0.9/0.6-1.0 cm LVIDd: 4.58 3.9-5.3/4.2-5.9 cm LVIDd Index: 2.39 2.4-3.2/2.2-3.1 cm/m2 LVIDs: 3.04 2.0-3.6 cm LVPWd: 0.77 0.7-1.1 cm LV Mass: 151.93 67-162/88-224 g LV Mass Index: 79.13 43-95/49-115 g/m2 LVOT Diam: 2.30 3.0+(-)1.3 cm 2D Systolic Function EF 4C: 68.70 >55% EF 2C: 63.50 >55% EF BiP: 65.90 >55% Mitral Valve MV Pk E: 0.78 MV PK A: 0.68 MV Decel Time: 195.00 E/A: 1.20 E'Lateral: 9.14 E'Medial: 8.81 E/E' Med: 8.90 E/E' Lat: 8.50 PHT: 57.00 MVA PHT: 3.86 Decel [place]: 3.99 Aortic Valve AoV Pk Fitz: 1.25 AoV Mn Fitz: 0.86 AoV VTI: 0.25 AoV Pk Grad: 6.00 Aov Mn Grad: 3.00 VANE Cont.VTI: 2.99 LVOT LVOT Pk Fitz: 0.93 LVOT Mn Fitz: 0.59 LVOT VTI: 0.18 LVOT Pk Grad: 3.00 LVOT Mn Grad: 2.00 LVOT Diam: 2.30 LVOT Area: 4.15 Diastolic Function MV Pk E: 0.78 MV Pk A: 0.68 E/A: 1.20 E'Medial: 8.81 E/E' Med: 8.90 E' Laterial: 9.14 E/E' Lat: 8.50 Right Ventricle TAPSE (mm): 22.40 TVS' Fitz: 16.80 Tricuspid Valve TR Pk Fitz: 2.67 TR Pk Grad: 29.00 RA Press: 8.00 RVSP: 32.00 Great Vessels Aorta Sinus of Valsalva: 3.61 2.0-3.[address] [place]: 2.31 1.7-3.4 cm Ao Asc: 3.50 2.1-3.4 cm Updated in Other Vendor System with Status of Final Kevin Talbert MD electronically signed on 12/11/2024 3:44:43 PM with status of Final
--- NOTE | 2024-12-10 07:56 | ECG_ITS ---
Test Reason : STROKE/FALL Blood Pressure : */* mmHG Vent. Rate : 70 BPM Atrial Rate : 70 BPM P-R Int : 198 ms QRS Dur : 84 ms QT Int : 418 ms P-R-T Axes : 52 52 66 degrees QTcB Int : 451 ms Normal sinus rhythm Normal ECG When compared with ECG of 06-May-2024 19:21, T wave inversion no longer evident in Inferior leads T wave inversion no longer evident in Anterior leads Referred By: Yuliana Jones Electronically Signed By: Kevin Talbert
[2024-12-10 08:04] LABS: Glucose, Whole Blood 135 mg/dL (60-115)
[2024-12-10 08:17] LABS: MANUAL DIFF FLAG NO
[2024-12-10 08:19] LABS: Hematocrit 37.2 % (42.0-52.0); Hemoglobin 12.3 g/dl (14.0-18.0); Imm Gran Abs Auto 0.05 X10*3/uL (0.00-0.03); Imm Gran Pct Auto 0.4 % (0.0-0.4); Lymphocytes Absolute Auto 0.8 X10*3/uL (1.2-4.9); Mean Corpuscular HGB Conc 33.1 g/dl (31.0-36.0); Mean Corpuscular Hemoglobin 30.4 pg (27.0-33.0); Mean Corpuscular Volume 91.9 fL (80.0-98.0); NRBC Abs Auto 0.000 X10*3/uL (0.0-0.012); NRBC Pct Auto 0.0 /100WBC (0.0-0.2); Platelet Count 171 X10*3/uL (160-400); Red Blood Count 4.05 X10*6/uL (4.60-5.80); White Blood Count 11.4 X10*3/uL (4.8-10.8)
[2024-12-10 08:23] LABS: VBG HCO3 31 mmol/L (22-26); VBG O2 % Saturation 85.0 %
[2024-12-10 08:27] LABS: Venous Blood Gas Refer to POC result
--- NOTE | 2024-12-10 08:28 | ED_ITS ---
HPI - Neuro Symptoms/Deficit General Chief Complaint: Fall Stated Complaint: Fall last night, hit head, arm lac Time Seen by Provider: 12/10/24 07:50 Source: patient, family and old records reviewed Mode of arrival: ambulatory Limitations: no limitations History of Present Illness ED Provider: YOSHI SANTIZO Narrative: 79 yo male with PMH of HTN, GERD, CKD, mood disorder, DVT not on thinners x 1 month grandson states doctor told them they could stop. He fell at approx 2am last night he had a hard time sleeping he hasn't felt well for 2 days. He stood up felt weak and dizzy hit his R arm and hit back of head on tub. No LOC. He thinks he was down for about 10 minutes. He is not clear when it started but last known well 2am - his grandson noted L sided facial droop and garbled speech. He has a cough but denies fevers. He is not able to produce sputum. After the fall he vomited. LAST KNOWN WELL 2AM Onset (ago): day(s) (2am today) Timing confirmed by: family member Location: left face and dysarthria History of same: No Severity: moderate Quality: weak Relieving factors: none Exacerbating factors: rest Context: gradual onset and recent fall On Anticoagulants: No Associated symptoms: cough, loss of appetite, malaise and weakness Treatments Prior to Arrival: none Related Data Home Medications ?Medication ?Instructions ?Recorded ?Confirmed doxepin 25 mg capsule 25 mg PO BEDTIME 05/06/24 escitalopram oxalate 20 mg tablet 20 mg PO DAILY 05/0605/06/24 metoprolol succinate 25 mg 25 mg PO DAILY 05/06/2412/21 tablet,extended release 24 hr pantoprazole 40 mg tablet,delayed 40 mg PO DAILY@0630 05/06/24 05/06/24 release Previous Rx's ?Medication ?Instructions ?Recorded apixaban 5 mg tablet (Eliquis) 10 mg (2 x 5 mg) PO BID #80 tabs 05/13/24 Allergies Allergy/AdvReac Type Severity Reaction Status Date / Time No Known Allergies Allergy Verified 12/10/24 07:42 Review of Systems 2 Review of Systems: Constitutional : No Fever, No Chills, pos Fatigue ENT/Mouth : No sore throat, No Rhinorrhea Eyes: No Eye Pain, No Swelling, No Redness Cardiovascular : No Chest Pain, No SOB, No Dyspnea on Exertion Respiratory : pos Cough, No Sputum Gastrointestinal : No Nausea, No Vomiting, No Diarrhea, No abdominal Pain, no melena, no hematochezia Genitourinary : No Dysuria, No Urinary Frequency, No Hematuria, Musculoskeletal : No joint pain, No Myalgias, No Joint Swelling Skin : No Skin Lesions, No rash Neuro : pos Weakness, No Numbness, No Dizziness, positive Headache Psych : No Anxiety/Panic, No Depression Heme/Lymph: No Bruising, No Bleeding,No Lymphadenopathy Endocrine : No Polyuria, No Polydipsia All other systems reviewed and are negative FOR[facility]LY [facility], [facility] Past Medical History Attestation statement: The following information was validated with the patient. Source: old records reviewed Medical History Gastroesophageal reflux disease Chronic kidney disease Mood disorder Hypertension Social History Social History Patient Tobacco Use Status: Never used Tobacco Substance Use Type: Marijuana Advance Directives: Yes Advance Directives on File: Yes Advance Directives Date on File: 05/14/24 service: No Physical Exam 2 Vital Signs: Vital Signs: Last Vital Signs Temp 98.2 F 12/10/24 08:49 Pulse 80 12/10/24 08:49 Resp 20 12/10/24 08:49 BP 165/52 H 12/10/24 08:49 Pulse Ox 93 12/10/24 08:49 O2 Del Method Room Air 12/10/24 08:08 BMI result Body Mass Index 27.7 Appearance: Alert. Oriented X3. No acute distress. Eyes: Pupils equal, round and reactive to light. ENT: Pharynx normal. Neck: Normal inspection. Neck supple. CVS: Normal heart rate and rhythm. Pulses normal. Respiratory: No respiratory distress. Breath sounds very coarse and appears to have difficulty producing sputum, diminished both bases Abdomen: Soft and nontender. Skin: Skin warm and dry. Normal skin color. Normal skin turgor. Extremities: No lower extremity edema. R arm multiple superficial skin tears along posterior forearm up to R humerus has normal ROM and no pain along bones Neuro: Oriented X 3. L sided lower facial droop and slurred speech. No drift and 5/5 in both extremities. Appears to have some swallowing difficulties as well. Course Course Course Narrative: CT scan doesn't really match with his clinical picture. failed swallow eval in ED Medications Administered Discontinued Medications Generic Name Dose Route Start Last Admin Trade Name Jai PRN Reason Stop Dose Admin Ceftriaxone Sodium 1 gm 12/10/24 07:56 12/10/24 08:40 Ceftriaxone Sodium 1 Gm Vial IVPUSH 12/10/24 07:57 1 gm ONCE ONE Administration Albuterol Sulfate 2.5 mg/ 0 mg 12/10/24 08:33 12/10/24 08:37 Albuterol/Ipratropium 3 ml INHALE 12/10/24 08:34 1 dose ONCE ONE Administration Iohexol 100 ml 12/10/24 08:30 12/10/24 08:30 Iohexol 350 Mg/Ml 100 Ml Infus..Btl IV 12/10/24 08:31 70 ml ONCE ONE Administration Ondansetron HCl 4 mg 12/10/24 07:56 12/10/24 08:41 Ondansetron Hcl 4 Mg/2 Ml Vial IVPUSH 12/10/24 07:57 4 mg ONCE ONE Administration Medical Decision Making Medical Decision Making MDM Narrative: 79 yo male with PMH of HTN, GERD, CKD, mood disorder, DVT not on thinners here with feeling weak and dizzy at 2am fell injuring head and R arm - he was noted to have slurred speech and L sided facial droop. Last known well 2am - not a candidate for TNK, he will get stroke protocol for LVO, swallow screen there is a concern for aspiration. I am going to order cultures, lactic acid, CXR, CT head/CTA, empiric aspiration antibiotics. He will get neb as well RT at bedside. No pain in R arm to suggest fracture injury is superficial - wound care coverage done by RN - vaseline gauze, non stick, gauze Differential Diagnosis Differential Diagnoses: The differential diagnosis associated with the presentation includes stroke, rhabdo, aspiration pneumonia Admission/Observation Consideration of admission/observation: Escalation of care including admission/observation considered will admit for stroke work up Consult Healthcare Provider Management of the patient was discussed with: Hospitalist (will admit) and Tile Designer (vascular Charlette - would recommend statin, aspirin, plavix no intervention) Lab Data MDM Lab Attestation statement: I reviewed the patient's lab results. 12/10/24 08:09 12/10/24 08:09 Labs: Lab Results 12/10/24 12/10/24 12/10/24 Range/Units 07:59 08:08 08:09 WBC 11.4 H (4.8-10.8) X10*3/uL RBC 4.05 L (4.60-5.80) X10*6/uL Hgb 12.3 L (14.0-18.0) g/dl Hct 37.2 L (42.0-52.0) % MCV 91.9 (80.0-98.0) fL MCH 30.4 (27.0-33.0) pg MCHC 33.1 (31.0-36.0) g/dl RDW 13.8 (11.0-16.0) % Plt Count 171 (160-400) X10*3/uL MPV 10.0 (9.4-12.4) fL Immature Gran % (Auto) 0.4 (0.0-0.4) % Neut % (Auto) 86.1 H (45-73) % Lymph % (Auto) 7.3 L (20-40) % [place] % (Auto) 6.1 (2-11) % Eos % (Auto) 0.0 (0-4) % Baso % (Auto) 0.1 (0-2) % Lymph # (Auto) 0.8 L (1.2-4.9) X10*3/uL [place] # (Auto) 0.7 (0.1-1.2) X10*3/uL Eos # (Auto) 0.0 (0.0-0.4) X10*3/uL Baso # (Auto) 0.0 (0.0-0.2) X10*3/uL Abs Immat Gran (auto) 0.05 H (0.00-0.03) X10*3/uL Absolute Neuts (auto) 9.8 H (2.0-8.3) x10*3/uL Absolute Nucleated RBC 0.000 (0.0-0.012) X10*3/uL Nucleated RBC % (auto) 0.0 (0.0-0.2) /100WBC VBG pH (7.32-7.43) VBG pCO2 mmHg VBG pO2 mmHg VBG HCO3 (22-26) mmol/L VBG O2 Saturation % VBG Base Excess mmol/L Sodium 144 (135-145) mmol/L Potassium 3.9 (3.3-5.1) mmol/L Chloride 109 H (96-108) mmol/L Carbon Dioxide 27 (22-29) mmol/L Anion Gap 12 (12-20) BUN 26 H (9-16) mg/dL Creatinine 1.56 H (0.5-1.4) mg/dL Estim Creat Clear Calc 38.3 Estimated GFR 43 POC Glucose 135 H (60-115) mg/dL Random Glucose 148 H (60-115) mg/dL Lactic Acid 1.7 (0.5-2.0) mmol/L Calcium 8.9 (8.4-10.2) mg/dL Magnesium 2.0 (1.6-2.6) mg/dL Total Bilirubin 0.6 (0.0-1.0) mg/dL Direct Bilirubin 0.3 (0.0-0.5) mg/dL AST 35 (5-37) U/L ALT 20 (0-40) U/L Alkaline Phosphatase 84 (39-117) U/L Total Creatine Kinase 111 (38-174) U/L Troponin I High Sens 17.5 (<3.5-35.0) ng/L C-Reactive Protein 0.71 H (< or = 0.50) mg/dL B-Natriuretic Peptide 276 H (<100) pg/mL Total Protein 7.1 (6.5-8.0) g/dL Albumin 3.7 (3.5-5.0) g/dL Lipase 12 (8-78) U/L Procalcitonin 0.10 ng/mL Influenza Type A (PCR) NEGATIVE (Negative) Influenza Type B (PCR) NEGATIVE (Negative) RSV RNA Qual (PCR) NEGATIVE (Negative) SARS-CoV-2 RNA (RT-PCR) NEGATIVE (Negative) 12/10/24 Range/Units 08:17 WBC (4.8-10.8) X10*3/uL RBC (4.60-5.80) X10*6/uL Hgb (14.0-18.0) g/dl Hct (42.0-52.0) % MCV (80.0-98.0) fL MCH (27.0-33.0) pg MCHC (31.0-36.0) g/dl RDW (11.0-16.0) % Plt Count (160-400) X10*3/uL MPV (9.4-12.4) fL Immature Gran % (Auto) (0.0-0.4) % Neut % (Auto) (45-73) % Lymph % (Auto) (20-40) % [place] % (Auto) (2-11) % Eos % (Auto) (0-4) % Baso % (Auto) (0-2) % Lymph # (Auto) (1.2-4.9) X10*3/uL [place] # (Auto) (0.1-1.2) X10*3/uL Eos # (Auto) (0.0-0.4) X10*3/uL Baso # (Auto) (0.0-0.2) X10*3/uL Abs Immat Gran (auto) (0.00-0.03) X10*3/uL Absolute Neuts (auto) (2.0-8.3) x10*3/uL Absolute Nucleated RBC (0.0-0.012) X10*3/uL Nucleated RBC % (auto) (0.0-0.2) /100WBC VBG pH 7.38 (7.32-7.43) VBG pCO2 51 mmHg VBG pO2 57 mmHg VBG HCO3 31 H (22-26) mmol/L VBG O2 Saturation 85.0 % VBG Base Excess 4.9 mmol/L Sodium (135-145) mmol/L Potassium (3.3-5.1) mmol/L Chloride (96-108) mmol/L Carbon Dioxide (22-29) mmol/L Anion Gap (12-20) BUN (9-16) mg/dL Creatinine (0.5-1.4) mg/dL Estim Creat Clear Calc Estimated GFR POC Glucose (60-115) mg/dL Random Glucose (60-115) mg/dL Lactic Acid (0.5-2.0) mmol/L Calcium (8.4-10.2) mg/dL Magnesium (1.6-2.6) mg/dL Total Bilirubin (0.0-1.0) mg/dL Direct Bilirubin (0.0-0.5) mg/dL AST (5-37) U/L ALT (0-40) U/L Alkaline Phosphatase (39-117) U/L Total Creatine Kinase (38-174) U/L Troponin I High Sens (<3.5-35.0) ng/L C-Reactive Protein (< or = 0.50) mg/dL B-Natriuretic Peptide (<100) pg/mL Total Protein (6.5-8.0) g/dL Albumin (3.5-5.0) g/dL Lipase (8-78) U/L Procalcitonin ng/mL Influenza Type A (PCR) (Negative) Influenza Type B (PCR) (Negative) RSV RNA Qual (PCR) (Negative) SARS-CoV-2 RNA (RT-PCR) (Negative) Independent Interpretation I performed an independent interpretation of an: EKG, Plain X-Ray (obscured R heart border) and CT Scan (no ICH, no LVO) Interpretation: Rate: 70 Rhythm: NSR [place]: normal Normal P waves. Normal NITHYA. Normal QRS complex. ST T wave : flat t waves aVL, no GANESH qTC: 451 prior studies: no acute ischemia The study has been interpreted contemporaneously by me. . Radiology Impression Discussion of test interpretation with radiology: I discussed test interpretation with the radiologist and I have reviewed the radiologist's reading. Radiologist Impression: negative CT head for ICH negative CTA - L verterbral artery old chronic Independent Historian Clinical information obtained from an independent historian. History obtained from or confirmed by: EMS and Other (grandson) External Record Review External record reviewed: Inpatient record and Outpatient record NIH Stroke Scale Internal: Initial- Upon Arrival Level of Consciousness: Alert Level of Consciousness Questions: Answers both questions correctly Level of Consciousness Commands: Performs both tasks correctly Best Gaze: Normal Visual: No visual loss Facial Palsy: Minor paralyis Motor Arm (Right): No drift Motor Arm (Left): No drift Motor Leg (Right): No drift Motor Leg (Left): No drift Limb Ataxia: Absent Sensory: Normal Best Language: No aphasia Dysarthia: Mild to moderate dysarthria Extinction and Inattention: No abnormality Score: 2 Critical Care Time Critical Care Time Critical Care Time: Yes Total Critical Care Time: 35 Attestation: Time is exclusive of separately billable procedures. Time includes: direct patient care, patient reassessment, coordination of patient care, interpretation of data (laboratory data, pulse oximetry, venous blood gases and chest xrays), review of patient's medical records, medical consultation and documentation of patient care. Stroke protocol. Procedures excluded from critical care time: electrocardiography. I attest to this time spent taking care of the patient Discharge Plan Discharge Clinical Impression: Aspiration pneumonia, Acute CVA (cerebrovascular accident) Patient Disposition: Admitted As Inpatient Print Language: Czech
[2024-12-10] MEDS: iohexoL 350 MG/ML 100 ML INFUS..BTL IV (08:30)
[2024-12-10] MEDS: Albuterol Sulfate 2.5 MG, Albuterol/Iprat 2.5/0.5MG 3 ML 3 ML INHALE (08:37)
[2024-12-10 08:38] LABS: B Type Natriuretic Peptide 276 pg/mL (<100); Troponin-I High Sensitivity 17.5 ng/L (<3.5-35.0)
[2024-12-10 08:43] LABS: Alanine Aminotransferase 20 U/L (0-40); Albumin Level 3.7 g/dL (3.5-5.0); Alkaline Phosphatase 84 U/L (39-117); Anion Gap 12 (12-20); Aspartate Amino Transferase 35 U/L (5-37); Blood Urea Nitrogen 26 mg/dL (9-16); Calcium 8.9 mg/dL (8.4-10.2); Carbon Dioxide 27 mmol/L (22-29); Chloride 109 mmol/L (96-108); Creatinine Clr Calc Pharmacy 38.3; Estimated Glomerular Filt Rate 43; Lipase 12 U/L (8-78); Magnesium 2.0 mg/dL (1.6-2.6); Potassium 3.9 mmol/L (3.3-5.1); Sodium 144 mmol/L (135-145); Total Protein 7.1 g/dL (6.5-8.0)
[2024-12-10 08:52] LABS: Procalcitonin 0.10 ng/mL
[2024-12-10 09:00] LABS: Resp Syncy Virus RNA Qual PCR NEGATIVE (Negative); SARS COV2 PCR INHOUSE NEGATIVE (Negative)
[2024-12-10] MEDS: metroNIDAZOLE/NS 500 MG/100 ML PIGGYBACK 100 MG IV (09:23)
--- NOTE | 2024-12-10 09:42 | PC.NURSE ---
Patient coughing immediately upon taking small sip of water. Reports difficulty swallowing, provider aware asa changed to rectal. Sating 89-90% on RA- placed on 2 liters 02 via NC. Provider aware
[2024-12-10 09:59] LABS: Hemoglobin A1C 104.6531 umol/L; Total Hemoglobin (HGBA1C) 3261.7365 umol/L
[2024-12-10 10:04] LABS: Cholesterol 162 mg/dL (<200); HDL Cholesterol 47 mg/dL (>40); Triglycerides 47 mg/dL (<150)
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
[2024-12-10] MEDS: Dextrose 5 % and Lactated Ring 1,000 ML 80 ML IVCONT ×2 (10:30→22:58)
--- NOTE | 2024-12-10 10:40 | MHC.STROKE ---
Met with patient and grandson in bed 9. Pt awake, alert and oriented x 3. Pt unable to state exact timeline of fall. Reported to this RN that he fell Saturday morning while he reported to grandson that he fell today. Pt did state that he hit his head on the bathtub when he fell. Mild left sided facial droop noted along with slurred speech. Coarse wet cough also noted. Failed nursing bedside swallow. Dr. Otero at bedside for admission evaluation. Plan of care discussed with patient and grandson Stroke Education reviewed. Pamphlet provided. Risk factors discussed including medical hx, medications, social hx, activity/diet Will continue to assist as needed.
--- NOTE | 2024-12-10 10:41 | PHA.MEDREC ---
Pharmacy Consult ? Medication Reconciliation Pharmacy has completed the medication reconciliation. Pt's family at bedside with a picture of prescription bottles. The confirmed that he is no longer on Eliquis and only takes Escitalopram 10mg and Pantoprazole 40mg in the morning and Doxepin 25mg in the evening.
--- NOTE | 2024-12-10 10:45 | PC.NURSE ---
Transferred to hospital bed, patients mouth suctioned with scant amount of secretions removed, respiratory at bedside to utilize cough assist.
--- NOTE | 2024-12-10 11:50 | PM.NEUROCN ---
History of Present Illness Data of Consult Service Date: 12/10/24 Primary Care Provider: Santiago Drake MD [facility] Reason for consult: Facial droop and for 79 years old man who was brought to hospital after he was found fallen down. He said that he lost his balance and fell. He was living alone. There was no evidence of any seizure-like episode. He was not suffering from any obvious medical illness like cold or flu. He has not noted any obvious arm or leg weakness or difficulty speaking. No pain. Review of Systems Review of Systems: No recent cold or flu-like illness or seizure-like episode no obvious exposure to new medicine [facility] Past Medical History Medical History Gastroesophageal reflux disease Chronic kidney disease Mood disorder Hypertension Social History Social History Patient Tobacco Use Status: Never used Tobacco Substance Use Type: Marijuana Advance Directives: Yes Advance Directives on File: Yes Advance Directives Date on File: 05/14/24 service: No Meds Allergies Allergy/AdvReac Type Severity Reaction Status Date / Time No Known Allergies Allergy Verified 12/10/24 07:42 Active Medications: Current Medications Enoxaparin Sodium (Enoxaparin Sodium 40 Mg/0.4 Ml Syringe) 40 mg SUBCUT Q24H [facility] Last Admin: 12/10/24 10:32 Dose: 40 mg Dextrose/Lactated Ringer's (D5lr) 1,000 mls @ 80 mls/hr IVCONT .[id number] [facility] Last Admin: 12/10/24 10:30 Dose: 80 mls/hr Ampicillin Sodium/Sulbactam (Sodium 3 gm/ Sodium Chloride) 100 mls @ 200 mls/hr IV Q6H [facility] Ondansetron HCl (Ondansetron Hcl 4 Mg/2 Ml Vial) 4 mg IVPUSH Q8H PRN PRN Reason: Nausea and Vomiting Sodium Chloride (0.9 % Sodium Chloride Flush 3 Ml Syringe) 3 ml IVFLUSH QSHIFT [facility] Home Medications ?Medication ?Instructions ?Recorded ?Confirmed ?Last Taken ?Type doxepin 25 mg capsule 25 mg PO BEDTIME 05/06/24 12/10/24 12/09/24 21:00 History pantoprazole 40 mg tablet,delayed 40 mg PO DAILY@0630 05/06/24 12/10/24 12/10/24 09:00 History release escitalopram oxalate 10 mg tablet 10 mg PO DAILY 12/10/24 12/10/24 12/10/24 09:00 History Physical Exam Vital Signs: Vital Signs: Last Vital Signs Temp 98.3 F 12/10/24 09:34 Pulse 86 12/10/24 10:08 Resp 19 12/10/24 10:08 BP 131/85 12/10/24 10:08 Pulse Ox 95 12/10/24 10:08 O2 Del Method Nasal Cannula 12/10/24 10:08 O2 Flow Rate 2 12/10/24 10:08 BMI result Body Mass Index 27.7 Neuro: Other: He is alert and awake with normal spontaneity of speech fluency comprehension and affect. He did not know where he was. He knew this was 2024. He was following simple commands. He knew his address. There was no significant facial asymmetry. Extraocular muscles were intact. Visual greer are full. There was no pronator drift. No obvious leg weakness was noted. Deep tendon reflexes were absent with flexor plantars. Speech was normal. Results Labs 12/10/24 08:09 12/10/24 08:09 Labs: Short CBC 12/10/24 Range/Units 08:09 WBC 11.4 H (4.8-10.8) X10*3/uL Hgb 12.3 L (14.0-18.0) g/dl Hct 37.2 L (42.0-52.0) % Plt Count 171 (160-400) X10*3/uL BMP 12/10/24 08:09 Sodium 144 Potassium 3.9 Chloride 109 H Carbon Dioxide 27 BUN 26 H Creatinine 1.56 H Calcium 8.9 Cardiac Enzymes 12/10/24 Range/Units 08:09 Total Creatine Kinase 111 (38-174) U/L Liver Function 12/10/24 Range/Units 08:09 Total Bilirubin 0.6 (0.0-1.0) mg/dL Direct Bilirubin 0.3 (0.0-0.5) mg/dL AST 35 (5-37) U/L ALT 20 (0-40) U/L Alkaline Phosphatase 84 (39-117) U/L Albumin 3.7 (3.5-5.0) g/dL Head CT revealed [id number] diffuse cerebral atrophy. CTA of brain revealed Noncalcified plaque resulting in nearly complete occlusion of the V3/V4 segment left vertebral artery from the origin of the left posterior inferior cerebellar artery to the basilar artery. Acute versus old. Irregular shaped mixed plaque representing 40% stenosis, right ICA. Mixed plaque proximal segment left ICA representing 20% stenosis. No cerebral aneurysm. Assessment and Plan (1) Dementia: Qualifiers: Dementia type: unspecified type Dementia severity: moderate Dementia behavioral or psychological symptom: without behavioral, psychotic, or mood disturbance or anxiety Qualified Code(s): F03.B0 - Unspecified dementia, moderate, without behavioral disturbance, psychotic disturbance, mood disturbance, and anxiety Status: Acute His main issue seems to be dementia putting him at risk for cognitive and physical issues including falling. I doubt if intracranial vascular findings have anything to do with his recent fall. Seizure disorder is not uncommon and this type of patient is. I recommend ruling out common causes including metabolic abnormalities or infection, and doing an EEG if no obvious explanation is found. Without MRI, acute vascular lesion or stroke can not be completely ruled out. Social service and PT OT consultations are also recommended (2) Vertebral artery stenosis: Qualifiers: Laterality: left Qualified Code(s): I65.02 - Occlusion and stenosis of left vertebral artery Status: Acute Mainstay of management is anti-platelet agent, statin, blood pressure control to control of vascular risk factors. Procedures Date of Service Date of Service: 12/10/24
--- NOTE | 2024-12-10 13:28 | PC.NURSE ---
Alert and oriented, left sided facial droop remains. Hand grasps and leg lifts strong and equal bilaterally. Grandson at bedside. patient aware he is NPO
--- NOTE | 2024-12-10 13:52 | MHC.SL.SWA ---
Speech Pathologist Impression: Risk of Aspiration, Pharyngeal Dysphagia Risk of Aspiration Due to: ? Acute CVA Dysphasia Diet Status: No change, continue NPO strict Liquid Consistency and Strategies for Safe Swallow: Liquid Intake Recommendation: NPO Solid Food Consistency: Dietary Recommendations: NPO Additional Modifications to Solid Foods:Patient presenting with clinical signs of aspiration, coughing upon swallowing and expectorating liquids. Oral Medication Intake: NPO Please contact the pharmacy regarding appropriate crushable or liquid drug formulations that are available whenever modified delivery is recommended. Supervision While Eating and Drinking for Safe Swallow: PO with SECTION SUPERVISOR Recommendation for Speech: Further Testing Needed Inpatient Speech Therapy Comment: SECTION SUPERVISOR to re-assess tomorrow a.m. Pump Mechanic Clinican/Clinical Fellow: No Supervisory Statement: I have reviewed and agree with the student/clinical fellow's documentation: N/A Speech Language Pathologist: Akua Barrientos M.A., [facility]-SECTION SUPERVISOR
--- NOTE | 2024-12-10 16:47 | PC.NURSE ---
Bladder scanned for 342, patient states does not have the urge to urinate , admitting provider notified
--- NOTE | 2024-12-10 18:42 | PC.NURSE ---
Attempted straight cath x2. Met significant resistance. No UOP. Unable to obtain urine at this time.
--- NOTE | 2024-12-10 19:29 | PC.NURSE ---
assumed care of pt. pt advised that he is still NPO. Pt 02 at 1L and 98%
[2024-12-10] MEDS: 0.9 % Sodium Chloride Flush 3 ML SYRINGE IVFLUSH (23:01)
[2024-12-11] VITALS (7 sets, daily range): BP systolic 163–186; BP diastolic 72–82; PULSE 62–67; RESP 16–18; TEMP 36.1–37.3; O2SAT 93–97; BMI 28.5
[2024-12-11 01:13] LABS: Appearance Urine Clear; Glucose Urine UA Negative (Negative); PH 5.0 (5.0-9.0); Specific Gravity - Urine >= 1.030 (1.005-1.025); UMIC TRIGGER UACC YES
[2024-12-11 01:18] LABS: UACC Culture Trigger YES
[2024-12-11 07:28] LABS: Alanine Aminotransferase 13 U/L (0-40); Albumin Level 3.1 g/dL (3.5-5.0); Alkaline Phosphatase 60 U/L (39-117); Anion Gap 10 (12-20); Aspartate Amino Transferase 28 U/L (5-37); Blood Urea Nitrogen 19 mg/dL (9-16); Calcium 8.4 mg/dL (8.4-10.2); Carbon Dioxide 26 mmol/L (22-29); Chloride 112 mmol/L (96-108); Creatinine Clr Calc Pharmacy 46.6; Estimated Glomerular Filt Rate 53; Potassium 3.9 mmol/L (3.3-5.1); Sodium 144 mmol/L (135-145); Total Protein 6.1 g/dL (6.5-8.0)
--- NOTE | 2024-12-11 10:27 | MHC.CM.PN ---
IMM 12/11/24, Pt. lives alone, PCP confirmed: Santiago Drake, HCP is on file and confirmed: Fernando Lynn. He does not have home health services, he uses a cane for DME. Grandson can provide transport home at [place]. DCP may be STR. CM to follow for DC needs.
[2024-12-11] MEDS: Dextrose 5 % and Lactated Ring 1,000 ML 80 ML IVCONT (10:38)
--- NOTE | 2024-12-11 11:01 | HO.WOUND ---
Wound Consult: Initial 79yr old [place] [facility] [place] - See progress notes and H&P for detailed history. Wound consult placed for right arm skin tear. Patient agreeable to assessment and photo documentation. Patient with skin tear sustained s/p fall at home. Etiology: Right arm skin tear Measurements: multiple scattered skin tears to right arm Wound Bed: partial thickness with partial skin flaps remaining, wound beds are moist pink. Drainage / Odor: scant yellow drainage without odor Edges: ? open/attached Paulo wound: ? No Induration, Fluctuance or Warmth noted, paulo wound ecchymosis noted Pain: no pain Goals of Treatment: ? moist wound healing, prevention of further skin tears Etiology: Right heel deep tissue pressure injury present on admission vs bruising Measurements: 1x0.5x0 Wound Bed: intact skin with localized area of pale purple nonblanching skin Drainage / Odor: none Edges: ? defined Paulo wound: ? No Induration, Fluctuance or Warmth noted Pain: no pain Goals of Treatment: ? offloading, pressure resdistribution Recommendations: 1. Turn and Reposition every 2 hours and as needed for patient comfort. Use pillows or wedges to support off loading positions. 2. Off Load all bony prominences with use of pillows and heel boots if needed. Apply Preventative foams where needed. 3. Monitor for incontinence and moisture control, use barrier creams when needed for prevention and treatment. 4. Provide adequate and supplemental nutrition. 5. Order or Continue low air loss mattress. 6. When applicable maintain blood glucose levels per Providers order. 7. Right heel: apply skin prep, apply heel foam dressing, change every 5-7 days and PRN, peel back and replace for shift assessment 8. Right arm: cleanse with normal saline, apply skin prep paulo wound, apply xeroform to wounds, cover with ABD pad, wrap with rolled gauze, change daily and PRN. Re-consult wound care Nurse for wound deterioration or wound changes.
--- NOTE | 2024-12-11 11:12 | MHC.CLN ---
CONSULT PT REQUIRES PPN FOR NUTRITION SUPPORT R/T PROLONGED NPO STATUS PT IS NPO PER MACHINE I COREMAKER REVIEWED LABS DISCUSSED WITH PHARMACY 12/11/24: RECOMMEND PPN AT 65ML/HR TO PROVIDE 796KCALS, 156G DEXTROSE, 66G PROTEIN REPLETE LYTES NEEDED CHECK TRIGS 12/12/24: RECOMMEND INCREASING FORMULA TO MAX GOAL RATE 85ML/HR WITH 64G LIPIDS TO PROVIDE 1680 TOTAL KCALS (23KCALS/KG), 204G DEXTROSE, 87G PROTEIN (1.2G/KG) REPLETE LYTES NEEDED RD CAN BE REACHED VIA TIGER CONNECT DURING OFF HOURS IF NEEDED
[2024-12-11 11:13] LABS: Magnesium 1.9 mg/dL (1.6-2.6)
--- NOTE | 2024-12-11 11:21 | MHC.SL.SWA ---
Addendum entered and electronically signed by Akua Barrientos MA, CCC-PHOTOGRAPHIC RESTORER 12/11/24 11:26: Per PA, patient starting on PPN today. Original Note: Speech Pathologist Impression: Risk of Aspiration, Oropharyngeal Dysphagia Risk of Aspiration Due to: Acute CVA Dysphasia Diet Status: No Change Liquid Consistency and Strategies for Safe Swallow: Liquid Intake Recommendation: NPO Solid Food Consistency: Dietary Recommendations: NPO Additional Modifications to Solid Foods: Patient presenting with overt s/s of aspiration on trials of thin and honey thick consistencies. Patient produced immediate nonproductive cough and expectorated sputum/water, with vocal wetness that did not resolve afterwards. Recommend continue strict NPO at this time. Elevate HoB at least 30 degrees and provide frequent oral care for hygiene and comfort. Notified RD- Patient NPO after 2x swallow eval. Patient may need alternative nutrition/hydration, at least temporarily. PHOTOGRAPHIC RESTORER to re-evaluate when appropriate. Oral Medication Intake: NPO Please contact the pharmacy regarding appropriate crushable or liquid drug formulations that are available whenever modified delivery is recommended. Supervision While Eating and Drinking for Safe Swallow: PO with PHOTOGRAPHIC RESTORER Recommendation for Speech: Further Testing Needed Inpatient Speech Therapy Comment: Patient presenting with clinical signs/symptoms of aspiration, immediate cough upon swallowing, vocal wetness, and expectoration of liquids. Frequency/Duration: Date Range for Service Req: Timeline to reassess: Skate Shop Attendant Clinican/Clinical Fellow: No Supervisory Statement: I have reviewed and agree with the student/clinical fellow's documentation: N/A Speech Language Pathologist: Akua Barrientos M.A., CCC-PHOTOGRAPHIC RESTORER
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
[2024-12-11] MEDS: Parenteral Nutrition 1,560 ML 65 ML IV (21:55)
[2024-12-11] MEDS: 0.9 % Sodium Chloride Flush 3 ML SYRINGE IVFLUSH (22:00)
[2024-12-12] VITALS (8 sets, daily range): BP systolic 160–180; BP diastolic 72–86; PULSE 59–76; RESP 18–20; TEMP 36.3–36.6; O2SAT 93–95
[2024-12-12 07:24] LABS: Alanine Aminotransferase 11 U/L (0-40); Albumin Level 3.1 g/dL (3.5-5.0); Alkaline Phosphatase 56 U/L (39-117); Anion Gap 16 (12-20); Aspartate Amino Transferase 28 U/L (5-37); Blood Urea Nitrogen 20 mg/dL (9-16); Calcium 8.5 mg/dL (8.4-10.2); Carbon Dioxide 28 mmol/L (22-29); Chloride 102 mmol/L (96-108); Creatinine Clr Calc Pharmacy 48.4; Estimated Glomerular Filt Rate 56; Magnesium 2.0 mg/dL (1.6-2.6); Potassium 4.2 mmol/L (3.3-5.1); Sodium 142 mmol/L (135-145); Total Protein 6.1 g/dL (6.5-8.0)
[2024-12-12] MEDS: 0.9 % Sodium Chloride Flush 3 ML SYRINGE IVFLUSH ×3 (09:26→23:40)
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
--- NOTE | 2024-12-12 23:59 | PC.NURSE ---
Patient scheduled medications administered late due to assembly instructions writer/primary RN in prolonged rapid response.
[2024-12-13] VITALS (9 sets, daily range): BP systolic 140–190; BP diastolic 62–82; PULSE 53–74; RESP 18–20; TEMP 36.3–37; O2SAT 90–95
[2024-12-13] MEDS: Parenteral Nutrition 2,040 ML 85 ML IV ×2 (00:23→21:53)
[2024-12-13 08:08] LABS: Alanine Aminotransferase 15 U/L (0-40); Albumin Level 3.1 g/dL (3.5-5.0); Alkaline Phosphatase 62 U/L (39-117); Anion Gap 13 (12-20); Aspartate Amino Transferase 35 U/L (5-37); Blood Urea Nitrogen 22 mg/dL (9-16); Calcium 8.5 mg/dL (8.4-10.2); Carbon Dioxide 24 mmol/L (22-29); Chloride 108 mmol/L (96-108); Creatinine Clr Calc Pharmacy 47.7; Estimated Glomerular Filt Rate 55; Magnesium 2.1 mg/dL (1.6-2.6); Potassium 4.3 mmol/L (3.3-5.1); Sodium 141 mmol/L (135-145); Total Protein 6.3 g/dL (6.5-8.0)
--- NOTE | 2024-12-13 08:24 | MHC.SL.SWA ---
Speech Pathologist Impression: Risk of Aspiration, Oropharyngeal Dysphagia Risk of Aspiration Due to: Acute CVA Dysphasia Diet Status: No Change Liquid Consistency and Strategies for Safe Swallow: Liquid Intake Recommendation: NPO Solid Food Consistency: Dietary Recommendations: NPO Additional Modifications to Solid Foods: Patient presenting with overt s/s of aspiration, requiring suctioning via [place]. Recommend continue strict NPO at this time. Elevate HoB at least 30 degrees and provide frequent oral care for hygiene and comfort. Per DUMB WAITER OPERATOR, patient is continuing PPN. Patient may benefit from GI consult, as he's expectorating fluids. Recommend further evaluation w/ MBSS- Notified DUMB WAITER OPERATOR, RD, & RN. Oral Medication Intake: NPO Please contact the pharmacy regarding appropriate crushable or liquid drug formulations that are available whenever modified delivery is recommended. Supervision While Eating and Drinking for Safe Swallow: PO with WATER QUALITY CONTROL ENGINEER Recommendation for Speech: Further Testing Needed Inpatient Speech Therapy Inpatient MBSS Comment: Patient presenting with clinical signs/symptoms of aspiration, immediate cough upon swallowing, vocal wetness, and expectoration of liquids. Frequency/Duration: Date Range for Service Req: Timeline to reassess: Elementary Spanish Teacher Clinican/Clinical Fellow: No Supervisory Statement: I have reviewed and agree with the student/clinical fellow's documentation: N/A Speech Language Pathologist: Akua Barrientos M.A., CCC-WATER QUALITY CONTROL ENGINEER
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
[2024-12-13] MEDS: 0.9 % Sodium Chloride Flush 3 ML SYRINGE IVFLUSH ×2 (16:11→21:59)
[2024-12-14] VITALS (10 sets, daily range): BP systolic 122–175; BP diastolic 57–92; PULSE 66–104; RESP 18–22; TEMP 36.6–37.3; O2SAT 93–97
[2024-12-14 07:33] LABS: Hematocrit 32.1 % (42.0-52.0); Hemoglobin 10.7 g/dl (14.0-18.0); Mean Corpuscular HGB Conc 33.3 g/dl (31.0-36.0); Mean Corpuscular Hemoglobin 30.2 pg (27.0-33.0); Mean Corpuscular Volume 90.7 fL (80.0-98.0); NRBC Abs Auto 0.000 X10*3/uL (0.0-0.012); NRBC Pct Auto 0.0 /100WBC (0.0-0.2); Platelet Count 150 X10*3/uL (160-400); Red Blood Count 3.54 X10*6/uL (4.60-5.80); White Blood Count 9.1 X10*3/uL (4.8-10.8)
[2024-12-14] MEDS: 0.9 % Sodium Chloride Flush 3 ML SYRINGE IVFLUSH ×2 (07:47→21:19)
[2024-12-14 07:58] LABS: Alanine Aminotransferase 14 U/L (0-40); Albumin Level 3.2 g/dL (3.5-5.0); Alkaline Phosphatase 58 U/L (39-117); Anion Gap 12 (12-20); Aspartate Amino Transferase 37 U/L (5-37); Blood Urea Nitrogen 24 mg/dL (9-16); Calcium 8.6 mg/dL (8.4-10.2); Carbon Dioxide 25 mmol/L (22-29); Chloride 107 mmol/L (96-108); Creatinine Clr Calc Pharmacy 50.4; Estimated Glomerular Filt Rate 58; Magnesium 2.1 mg/dL (1.6-2.6); Potassium 4.3 mmol/L (3.3-5.1); Sodium 140 mmol/L (135-145); Total Protein 6.3 g/dL (6.5-8.0)
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
--- NOTE | 2024-12-14 10:50 | MHC.CLN ---
F/U PT REQUIRES PPN FOR NUTRITION SUPPORT R/T PROLONGED NPO STATUS PT REMAINS NPO PER EMR IMPLEMENTATION SPECIALIST REVIEWED LABS DISCUSSED WITH PHARMACY CONTINUE PPN TO MAX GOAL RATE 85ML/HR WITH 64G LIPIDS PROVIDES 1680 TOTAL KCALS (23KCALS/KG), 204G DEXTROSE, 87G PROTEIN (1.2G/KG) REPLETE LYTES NEEDED
--- NOTE | 2024-12-14 11:06 | MHC.SLORD ---
Speech Language Pathology Order Status: MBSS planned today, hospitalist placed order yesterday, evaluating ROUSTABOUT PUSHER confirmed time. Pt in agreement with MBSS to visualize physiological function of swallow. ROUSTABOUT PUSHER intervention remains indicated to address dysphagia and dysarthria during inpatient stay and in post-acute setting.
--- NOTE | 2024-12-14 11:15 | MHC.CM.PN ---
Addendum entered by Marie Wallace 12/14/24 11:28: CM ATTEMPTED TO MEET WITH PT, HOWEVER PT OFF UNIT CM TO REVISIT Original Note: PER MD ROUNDS, PT NOT READY FOR DC, FAILED SWALLOW EVAL, / PEG DCP: PT / OT RECOMMENDING REHAB REFERRALS OUT
--- NOTE | 2024-12-14 13:53 | MHC.SL.IMP ---
Date of Plan of Treatment: 12/14/24 Onset of Symptoms/Illness: 12/10/24 Date Treatment Started: 12/10/24 Admitting Diagnosis: Acute CVA Vertebral artery stenosis Aspiration PNA Primary Speech & Language Diagnosis: R13.12 Oropharyngeal Phase Dysphagia Reason for Today's Visit: 56114 Modified Barium Swallow Study Pre-evaluation Dietary Consistencies: NPO Pre-evaluation Liquid Consistency: NPO Pre-evaluation Medication Administration: NPO Medical History: Modified Barium Swallow Study Fluoroscopic Evaluation of Swallowing Function CPT Code 42456 Evaluation Year: 2024 Reason for Study: Patient displays overt s/s of aspiration at bedside. Referring Physician: Tiffany Russell NP Evaluating Clinician: Akua Barrientos MA, CCC-SHREDDING MACHINE TENDER Study Number: 1 Patient Name: Pawel Will Status: Outpatient, Wheelchair Age: 79 Sex: Male Medical History Medical History Gastroesophageal reflux disease Chronic kidney disease Mood disorder Hypertension Current (pre-evaluation) Intake/Diet: Route: NPO Pre-Study Functional Oral Intake Scale (FOIS): 1- No oral intake Pain: None reported at time of study Food and Liquid Trials: Oral Impairment: Lip Closure: 2=Escape @ interlabial space/lat juncture; not beyond vermilion border Oral Impairment: Tongue Control During Bolus Hold: Did not test Oral Impairment: Bolus Preparation/Mastication: Did not test Oral Impairment: Bolus Transport/Lingual Motion: 3=Repetitive/disorganized tongue motion Oral Impairment: Oral Residue: 2=Residue collection on oral structures Oral Impairment:Initiation of Pharyngeal Swallow: 2=Bolus head at posterior laryngeal surface of epiglottis Pharyngeal Impairment: Soft Palate Elevation: 0=No bolus between soft palate (SP)/pharyngeal wall (PW) Pharyngeal Impairment: Laryngeal Elevation: 2=Minimal superior movement of thyroid cartilage (see description) Pharyngeal Impairment: Anterior Hyoid Excursion: 1=Partial anterior movement Pharyngeal Impairment: Epiglottic Movement: 2=No inversion Pharyngeal Impairment: Laryngeal Vestibular Closure:: 2=None: No inversion Pharyngeal Impairment: Pharyngeal Stripping Wave: 2=Absent Pharyngeal Impairment: Pharyngeal Contraction: Did not test Pharyngeal Impairment: Pharyngoesophageal Segment Opening: Did not test Pharyngeal Impairment: Tongue Base (TB) Retraction: 3=Wide column of contrast/air between TB and posterior PW Pharyngeal Impairment: Pharyngeal Residue: 4=Minimal to no pharyngeal clearance Pharyngeal Impairment: Esophageal Clearance Upright Position: Did not test Impressions and Recommendations OBJECTIVE: Time-out: performed at 11:30 Evaluation Start: 11:15; Stop: 11:25 Patient Positioning: Seated 70-90 degrees Viewing Planes: LATERAL ONLY Contrast: MBSImP? Standardized Protocol using commercially prepared, standardized Barium viscosities, including: Varibar? THIN LIQUID (40% w/v, <15 cps) , Varibar? THIN HONEY (40% w/v, <800-1800 cps) MBSImP ID: [id number] MBSImP Results: Lip closure for intraoral bolus containment resulted in bolus escape from the interlabial space or lateral juncture, but no extension beyond the vermilion border. Tongue control during bolus hold could not be assessed due to logistical reasons not related to physiologic impairment. Bolus preparation and mastication could not be assessed; solid not given due to logistical reasons or safety concerns unrelated to oral impairment. Bolus transport/lingual motion was with repetitive/disorganized motion of the tongue. Oral residue was a collection on oral structures. Initiation of the pharyngeal swallow occurred as the bolus head was at the posterior laryngeal surface of the epiglottis. Soft palate elevation resulted in no bolus between the soft palate and the pharyngeal wall. Laryngeal elevation was incomplete, as indicated through minimal superior movement of the thyroid cartilage with minimal approximation of the arytenoids to the epiglottic petiole. Anterior hyoid excursion demonstrated partial anterior movement. Epiglottic movement resulted in no inversion. Laryngeal vestibular closure was absent, resulting in a wide column of air/contrast within the laryngeal vestibule at the height of the swallow. Pharyngeal stripping wave was absent. Pharyngeal contraction could not be determined due to logistical reasons not related to physiologic impairment. Pharyngoesophageal segment opening could not be assessed due to logistical reasons not related to physiologic impairment. Tongue base retraction allowed a wide column of contrast or air between the retracted tongue base and the posterior pharyngeal wall. Pharyngeal residue resulted from minimal to no pharyngeal clearance. Esophageal clearance in the upright position could not be assessed due to logistical reasons not related to physiologic impairment. Oral Impairment Score: 9 (absence of score, component 2component 3) Pharyngeal Impairment Score: 16 (absence of score, component 13component 14) Esophageal Impairment Score: --- (absence of score, component 17) Laryngeal Penetration and Aspiration: Aspiration was observed in today's study. Mixed media (Honey-thick, Thin Contrast) entered the airway, passed below the vocal folds, and no effort were made to eject. ASSESSMENT: This exam was performed by the radiologist and the speech pathologist. Patient was seated upright in a wheelchair. He trialed thin and honey thick consistencies via teaspoon/trace amount by cup. Note weak lip closure, with spillage of contrast onto the lips. Poor tongue control and repetitive tongue pumping motion in preparation for bolus transit. Pharyngeal swallow trigger initiated as the bolus head reached the posterior laryngeal surface of the epiglottis. Post swallow there was minimal oral residual seen on the tongue and palate. No evidence of nasopharyngeal reflux. Minimal laryngeal elevation, with absent epiglottic inversion and minimal to no laryngeal vestibular closure. There was aspiration seen on dry swallows with thin contrast that had mixed with residuals (honey thick) and entered the airway. Patient did not elicit spontaneous protective cough or throat clear, but did cough on command, however, this did not prevent subglottic aspiration. There was minimal to no pharyngeal clearance, multiple dry swallows had minimal effect in reducing residuals. Patient did cough in response to significant pooling in his pharynx. Liquid Intake Recommendation: NPO Dietary Recommendations: NPO Medication Administration: NPO Please contact the pharmacy regarding appropriate crushable or liquid drug formulations that are available whenever modified delivery is recommended. Recommendation for Speech Therapy: Inpatient Speech Therapy Speech Therapy through [facility] Speech Therapy through Rehab Facility Text Comment: Intake Recommendations: Route: NPO/Alternate Route Diet Grade: IDDSI Levels: Liquid Consistencies: IDDSI Levels: Post-Study Functional Oral Intake Scale (FOIS): 1- No oral intake Patient presents with severe oropharyngeal dysphagia, in the setting of acute CVA and underlying dementia. Slow and disorganized oral phase characterized by weak labial seal, repetitive tongue pumping, and reduced tongue base retraction. Compromised airway protection with wide open airway due to absent epiglottic inversion and minimal to no laryngeal vestibular closure. Subglottic aspiration seen on mixed media of thin and honey thick consistencies. There was also significant pharyngeal residue with minimal to no clearance from the pharynx. Patient is at heightened risk of aspiration during the swallow due to poor airway protection and after the swallow on residuals from the pharynx. Multiple dry swallows had minimal effect in reducing residuals. Exam was discontinued for patient safety as it was likely he would continue to aspirate. Based on these observations, patient is recommended to continue NPO strict at this time. Due to prolonged NPO status x 5 days, recommend discussion between care team and patient/family in regards to goals of care and consultation for alternative nutrition/tube feeds. Patient is recommended to continue speech therapy during his inpatient stay M-F and will need continued services at the next level of care after discharge, with repeat-MBSS when appropriate to evaluate for any changes/improvement. Suggested Referrals: The patient might benefit from a referral to: Surgical, Nutrition Services, Medical Team Indication for Referral: Assess candidacy for temporary vs. half-way alternative means of nutrition/hydration. Therapy Recommendations: Dysphagia Treatment will be continued during inpatient stay M-F, to target patient/family education and to trial pharyngeal strengthening exercises. Patient will need continued services at the next level of care after discharge, with repeat-MBSS when appropriate to evaluate for any changes/improvement. Test Skein Winder Goals: ? The patient will demonstrate improved swallowing function via repeat clinical evaluation, videoendoscopy/videofluoroscopy and/or patient self-rating scores. ? The patient and/or family will participate in further education for swallowing goals. Short Term Goals: ? Structured Therapy - The patient will demonstrate 100% accuracy and require moderate cuing in structured swallowing therapy with the SHREDDING MACHINE TENDER using the following exercises/therapy approaches and therapy assisted devices: Effortful Swallow, Smooth Maneuver, Shaker Head Lifts, Natasha Maneuver, . ? Education - The patient, family, caregiver, nurse will verbalize/demonstrate understanding of the results of this evaluation, the above recommendations, and the swallowing guidelines. Clinician - Supplemental, Miscellaneous Communication: It is important to note MBSS objective studies are snapshots in time and Patient function might vary with factors such as time of day or concomitant medical conditions. For this reason, the final treatment plan for this patient should rest with their medical care team. Additional recommendations should be considered with the totality of the Patient in mind. Thank for the opportunity to participate in the care of this patient. If you have any questions about the content of this report, please contact the [facility] at [facility]. Education: Education regarding findings from today's study and plans for therapy were provided to Patient only through Verbal Instruction. Frequency/Duration: M-F Date Range for Service Requested: Timeline to reassess: PRN South Asian History Professor Clinician/Clinical Fellow: No Supervisory Statement: N/A Speech Language Pathologist: Akua Barrientos M.A., CCC-SHREDDING MACHINE TENDER
[2024-12-14] MEDS: Parenteral Nutrition 2,040 ML 85 ML IV (23:03)
[2024-12-15] VITALS (13 sets, daily range): BP systolic 133–180; BP diastolic 60–86; PULSE 78–131; RESP 20–24; TEMP 36.3–37.3; O2SAT 92–95
[2024-12-15 07:49] LABS: Alanine Aminotransferase 16 U/L (0-40); Albumin Level 3.2 g/dL (3.5-5.0); Alkaline Phosphatase 54 U/L (39-117); Anion Gap 15 (12-20); Aspartate Amino Transferase 45 U/L (5-37); Blood Urea Nitrogen 35 mg/dL (9-16); Calcium 8.6 mg/dL (8.4-10.2); Carbon Dioxide 20 mmol/L (22-29); Chloride 110 mmol/L (96-108); Creatinine Clr Calc Pharmacy 45.8; Estimated Glomerular Filt Rate 52; Magnesium 2.4 mg/dL (1.6-2.6); Potassium 4.9 mmol/L (3.3-5.1); Sodium 140 mmol/L (135-145); Total Protein 6.4 g/dL (6.5-8.0)
[2024-12-15] MEDS: 0.9 % Sodium Chloride Flush 3 ML SYRINGE IVFLUSH ×2 (07:56→17:10)
--- NOTE | 2024-12-15 08:48 | P.CONAN_ITS ---
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, garbled speech, agitation, uncooperative, 1:1 sitter Vertebral artery stenosis: see CTA head/neck below CKD stage IIIB: creat stable, improved since 04/2024; follows with urology for renal mass surveillance H/O provoked DVT status post 6 months of Eliquis DNR/DNI PMF Active Problems Active Problems: All Active Problems Vertebral artery stenosis (Acute) Dementia (Acute) Acute CVA (cerebrovascular accident) (Acute) Aspiration pneumonia (Acute) Renal mass (Acute) Gastroesophageal reflux disease (Acute) Mood disorder (Acute) Hypertension (Acute) DVT (deep venous thrombosis) (Acute) Past Medical History Medical History Gastroesophageal reflux disease Chronic kidney disease Mood disorder Hypertension Family History Family history of problems with anesthesia: Unobtainable Surgical History History of Problems with Anesthesia: Unobtainable Social History Social History Household Members: None Household Members Other:: lives alone Housing: House Do you presently have visiting nurse or other home services: No Comment: sitter in the room Patient Tobacco Use Status: Never used Tobacco Substance Use Type: Marijuana Advance Directives Date on File: 05/14/24 service: No Meds Allergies Allergy/AdvReac Type Severity Reaction Status Date / Time No Known Allergies Allergy Verified 12/10/24 07:42 Active Medications: Current Medications Amlodipine Besylate (Amlodipine Besylate 10 Mg Tablet) 10 mg PO BEDTIME YELITZA; Protocol On Hold: 12/13/24 15:18 Last Admin: 12/12/24 22:34 Dose: Not Given Atorvastatin Calcium (Atorvastatin Calcium 40 Mg Tablet) 40 mg PO BEDTIME YELITZA Last Admin: 12/14/24 21:15 Dose: Not Given Enoxaparin Sodium (Enoxaparin Sodium 40 Mg/0.4 Ml Syringe) 40 mg SUBCUT Q24H YELITZA On Hold: 12/13/24 11:37 Last Admin: 12/13/24 12:00 Dose: Not Given Haloperidol Lactate (Haloperidol Lactate 5 Mg/Ml Vial) 2.5 mg IM ONCE PRN PRN Reason: Agitation Last Admin: 12/13/24 03:35 Dose: 2.5 mg Hydralazine HCl (Hydralazine Hcl 20 Mg/Ml Vial) 10 mg IVPUSH Q6H PRN; Protocol PRN Reason: SBP > 160 Last Admin: 12/14/24 17:06 Dose: 10 mg Hydralazine HCl (Hydralazine Hcl 20 Mg/Ml Vial) 10 mg IVPUSH TID [facility]; Protocol Last Admin: 12/15/24 07:57 Dose: 10 mg Ampicillin Sodium/Sulbactam (Sodium 3 gm/ Sodium Chloride) 100 mls @ 200 mls/hr IV Q6H [facility] Last Admin: 12/15/24 07:56 Dose: 200 mls/hr Nutrition (Parenteral) (Parenteral Nutrition) 2,040 mls @ 85 mls/hr IV .Q24H [facility]; Protocol Stop: 12/15/24 20:59 Last Infusion: 12/15/24 06:27 Dose: 0 mls/hr Lisinopril (Lisinopril 5 Mg Tablet) 5 mg PO DAILY [facility]; Protocol On Hold: 12/13/24 15:18 Last Admin: 12/13/24 15:35 Dose: Not Given Ondansetron HCl (Ondansetron Hcl 4 Mg/2 Ml Vial) 4 mg IVPUSH Q8H PRN PRN Reason: Nausea and Vomiting Last Admin: 12/15/24 05:56 Dose: 4 mg Pharmacy Consult (Consult Rx Parenteral Nutrition Ordering) 1 each MISCELLANE DAILY PRN PRN Reason: Consult order Scopolamine (Scopolamine 1.5 Mg Patch.Td.3) 1.5 mg EAR-BEHIND Q72H [facility] Last Admin: 12/13/24 16:07 Dose: 1.5 mg Sodium Chloride (0.9 % Sodium Chloride Flush 3 Ml Syringe) 3 ml IVFLUSH QSHIFT [facility] Last Admin: 12/15/24 07:56 Dose: 3 ml Home Medications ?Medication ?Instructions ?Recorded ?Confirmed ?Last Taken ?Type doxepin 25 mg capsule 25 mg PO BEDTIME 05/06/2412/09/24 21:00 History pantoprazole 40 mg tablet,delayed 40 mg PO DAILY@0630 05/06/24 12/10/24 12/10/24 09:00 History release escitalopram oxalate 10 mg tablet 10 mg PO DAILY 12/1012/10/24 12/10/24 09:0 0 History Exam Height,Weight and Vital Signs: Height 5 ft 7 in Weight 82.6 kg Last Vital Signs Temp 98.6 F 12/15/24 07:55 Pulse 107 H 12/15/24 08:32 Resp 20 12/15/24 07:55 BP 143/60 H 12/15/24 08:02 Pulse Ox 93 12/15/24 07:55 O2 Del Method Room Air 12/15/24 07:55 O2 Flow Rate 1 12/13/24 23:32 Pertinent Lab Results Pertinent Lab Results: Laboratory Tests 12/10/24 12/10/24 12/10/24 07:59 08:08 08:09 WBC 11.4 H RBC 4.05 L Hgb 12.3 L Hct 37.2 L MCV 91.9 MCH 30.4 MCHC 33.1 RDW 13.8 Plt Count 171 MPV 10.0 Immature Gran % (Auto) 0.4 Neut % (Auto) 86.1 H Lymph % (Auto) 7.3 L [place] % (Auto) 6.1 Eos % (Auto) 0.0 Baso % (Auto) 0.1 Lymph # (Auto) 0.8 L [place] # (Auto) 0.7 Eos # (Auto) 0.0 Baso # (Auto) 0.0 Abs Immat Gran (auto) 0.05 H Absolute Neuts (auto) 9.8 H Absolute Nucleated RBC 0.000 Nucleated RBC % (auto) 0.0 Hold Purple Top VBG pH VBG pCO2 VBG pO2 VBG HCO3 VBG O2 Saturation VBG Base Excess Sodium 144 Potassium 3.9 Chloride 109 H Carbon Dioxide 27 Anion Gap 12 BUN 26 H Creatinine 1.56 H Estim Creat Clear Calc 38.3 Estimated GFR 43 POC Glucose 135 H Random Glucose 148 H Estimat Average Glucose 100 Hemoglobin A1c % 5.1 Lactic Acid 1.7 Calcium 8.9 Phosphorus Magnesium 2.0 Total Bilirubin 0.6 Direct Bilirubin 0.3 AST 35 ALT 20 Alkaline Phosphatase 84 Total Creatine Kinase 111 Troponin I High Sens 17.5 C-Reactive Protein 0.71 H B-Natriuretic Peptide 276 H Total Protein 7.1 Albumin 3.7 Triglycerides 47 Cholesterol 162 LDL Cholesterol, Calc 106 H HDL Cholesterol 47 Lipase 12 Procalcitonin 0.10 Urine Color Urine Appearance Urine pH Ur Specific [place] Urine Protein Urine Glucose (UA) Urine Ketones Urine Blood Urine Nitrite Ur Leukocyte Esterase Urine RBC Urine WBC Ur Squamous Epith Cells Urine Bacteria Hyaline Casts Influenza Type A (PCR) NEGATIVE Influenza Type B (PCR) NEGATIVE RSV RNA Qual (PCR) NEGATIVE SARS-CoV-2 RNA (RT-PCR) NEGATIVE 12/10/24 12/11/24 12/11/24 08:17 00:46 07:01 WBC RBC Hgb Hct MCV MCH MCHC RDW Plt Count MPV Immature Gran % (Auto) Neut % (Auto) Lymph % (Auto) [place] % (Auto) Eos % (Auto) Baso % (Auto) Lymph # (Auto) [place] # (Auto) Eos # (Auto) Baso # (Auto) Abs Immat Gran (auto) Absolute Neuts (auto) Absolute Nucleated RBC Nucleated RBC % (auto) Hold Purple Top VBG pH 7.38 VBG pCO2 51 VBG pO2 57 VBG HCO3 31 H VBG O2 Saturation 85.0 VBG Base Excess 4.9 Sodium 144 Potassium 3.9 Chloride 112 H Carbon Dioxide 26 Anion Gap 10 L BUN 19 H Creatinine 1.30 Estim Creat Clear Calc 46.6 Estimated GFR 53 POC Glucose Random Glucose 100 Estimat Average Glucose Hemoglobin A1c % Lactic Acid Calcium 8.4 Phosphorus 3.2 Magnesium 1.9 Total Bilirubin 0.6 Direct Bilirubin AST 28 ALT 13 Alkaline Phosphatase 60 Total Creatine Kinase Troponin I High Sens C-Reactive Protein B-Natriuretic Peptide Total Protein 6.1 L Albumin 3.1 L Triglycerides Cholesterol LDL Cholesterol, Calc HDL Cholesterol Lipase Procalcitonin Urine Color Yellow Urine Appearance Clear Urine pH 5.0 Ur Specific [place] >= 1.030 H Urine Protein 30 (1+) H Urine Glucose (UA) Negative Urine Ketones Negative Urine Blood Trace H Urine Nitrite Negative Ur Leukocyte Esterase Trace H Urine RBC 3-5 H Urine WBC 21-50 H Ur Squamous Epith Cells 0-2 Urine Bacteria None Seen Hyaline Casts 0-2 Influenza Type A (PCR) Influenza Type B (PCR) RSV RNA Qual (PCR) SARS-CoV-2 RNA (RT-PCR) 12/12/24 12/12/24 12/13/24 06:45 06:53 07:19 WBC RBC Hgb Hct MCV MCH MCHC RDW Plt Count MPV Immature Gran % (Auto) Neut % (Auto) Lymph % (Auto) [place] % (Auto) Eos % (Auto) Baso % (Auto) Lymph # (Auto) [place] # (Auto) Eos # (Auto) Baso # (Auto) Abs Immat Gran (auto) Absolute Neuts (auto) Absolute Nucleated RBC Nucleated RBC % (auto) Hold Purple Top SEE NOTE VBG pH VBG pCO2 VBG pO2 VBG HCO3 VBG O2 Saturation VBG Base Excess Sodium 142 141 Potassium 4.2 4.3 Chloride 102 108 Carbon Dioxide 28 24 Anion Gap 16 13 BUN 20 H 22 H Creatinine 1.25 1.27 Estim Creat Clear Calc 48.4 47.7 Estimated GFR 56 55 POC Glucose Random Glucose 106 123 H Estimat Average Glucose Hemoglobin A1c % Lactic Acid Calcium 8.5 8.5 Phosphorus 3.2 4.0 Magnesium 2.0 2.1 Total Bilirubin 0.6 0.6 Direct Bilirubin AST 28 35 ALT 11 15 Alkaline Phosphatase 56 62 Total Creatine Kinase Troponin I High Sens C-Reactive Protein B-Natriuretic Peptide Total Protein 6.1 L 6.3 L Albumin 3.1 L 3.1 L Triglycerides Cholesterol LDL Cholesterol, Calc HDL Cholesterol Lipase Procalcitonin Urine Color Urine Appearance Urine pH Ur Specific [place] Urine Protein Urine Glucose (UA) Urine Ketones Urine Blood Urine Nitrite Ur Leukocyte Esterase Urine RBC Urine WBC Ur Squamous Epith Cells Urine Bacteria Hyaline Casts Influenza Type A (PCR) Influenza Type B (PCR) RSV RNA Qual (PCR) SARS-CoV-2 RNA (RT-PCR) 12/14/24 12/15/24 07:04 06:52 WBC 9.1 RBC 3.54 L Hgb 10.7 L Hct 32.1 L MCV 90.7 MCH 30.2 MCHC 33.3 RDW 13.3 Plt Count 150 L MPV 10.2 Immature Gran % (Auto) Neut % (Auto) Lymph % (Auto) [place] % (Auto) Eos % (Auto) Baso % (Auto) Lymph # (Auto) [place] # (Auto) Eos # (Auto) Baso # (Auto) Abs Immat Gran (auto) Absolute Neuts (auto) Absolute Nucleated RBC 0.000 Nucleated RBC % (auto) 0.0 Hold Purple Top VBG pH VBG pCO2 VBG pO2 VBG HCO3 VBG O2 Saturation VBG Base Excess Sodium 140 140 Potassium 4.3 4.9 Chloride 107 110 H Carbon Dioxide 25 20 L Anion Gap 12 15 BUN 24 H 35 H Creatinine 1.20 1.32 Estim Creat Clear Calc 50.4 45.8 Estimated GFR 58 52 POC Glucose Random Glucose 125 H 119 H Estimat Average Glucose Hemoglobin A1c % Lactic Acid Calcium 8.6 8.6 Phosphorus 4.0 4.6 H Magnesium 2.1 2.4 Total Bilirubin 0.6 0.6 Direct Bilirubin AST 37 45 H ALT 14 16 Alkaline Phosphatase 58 54 Total Creatine Kinase Troponin I High Sens C-Reactive Protein B-Natriuretic Peptide Total Protein 6.3 L 6.4 L Albumin 3.2 L 3.2 L Triglycerides Cholesterol LDL Cholesterol, Calc HDL Cholesterol Lipase Procalcitonin Urine Color Urine Appearance Urine pH Ur Specific [place] Urine Protein Urine Glucose (UA) Urine Ketones Urine Blood Urine Nitrite Ur Leukocyte Esterase Urine RBC Urine WBC Ur Squamous Epith Cells Urine Bacteria Hyaline Casts Influenza Type A (PCR) Influenza Type B (PCR) RSV RNA Qual (PCR) SARS-CoV-2 RNA (RT-PCR) Narrative Narrative: EKG 12/10/24 Vent. Rate : 70 BPM Atrial Rate : 70 BPM P-R Int : 198 ms QRS Dur : 84 ms QT Int : 418 ms P-R-T Axes : 52 52 66 degrees QTcB Int : 451 ms Normal sinus rhythm Normal ECG When compared with ECG of 06-May-2024 19:21, T wave inversion no longer evident in Inferior leads T wave inversion no longer evident in Anterior leads Echo 12/10/24 Conclusions: - Normal left ventricular size, thickness, systolic function, and wall motion. The visually estimated ejection fraction is between 55-60%. Diastolic function is normal for age. - Normal right ventricular cavity size and systolic function. - The left atrium is mildly dilated. 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 Acute versus old. Irregular shaped mixed plaque representing 40% stenosis, right ICA. Mixed plaque proximal segment left ICA representing 20% stenosis. No cerebral aneurysm. Airway Mallampati Class: Patient Non-Cooperative TM Dist: >3cm Heart: RRR Lungs: limited exam due to pt non-cooperative, +secretions Assessment and Plan Final Anesthetic Review Family History of Problems with Anesthesia: Unobtainable History of Problems with Anesthesia: Unobtainable
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
--- NOTE | 2024-12-15 11:13 | MHC.CLN ---
F/U PLAN FOR PEG TOMORROW 12/16 PT REMAINS NPO PER MAILING CLERK REVIEWED LABS DISCUSSED WITH PHARMACY CONTINUE PPN AT MAX GOAL RATE 85ML/HR WITH 64G LIPIDS PROVIDES 1680 TOTAL KCALS (23KCALS/KG), 204G DEXTROSE, 87G PROTEIN (1.2G/KG) REPLETE LYTES NEEDED FOLLOWING WITH TEAM
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
--- NOTE | 2024-12-15 15:25 | MHC.SLORD ---
Speech Language Pathology Order Status: Attempted to see patient this p.m., patient was sleeping soundly, sitter present in room, elected not to wake for this therapy service. Patient pending PEG surgery 12/16/24.
--- NOTE | 2024-12-15 17:06 | HO.MIDLINE ---
Midline Insertion MIDLINE INSERTION Diagnosis: S/P stroke dysphagia.PPN Indication: iv access Pertinent Labs: reviewed Technique: Using sterile technique including cap and mask, glove and drape, the right arm was prepped and draped in the usual sterile fashion of full barrier technique with G. Using ultrasound guidance, right brachial vein access was obtained . 5fr double lumen PASV POWER MIDLINE catheter trimmed to 12 cm was positioned. The procedure was performed in [facility]. Ultrasound was used to document vein patency and for needle entry. A formal ultrasound picture was recorded. [employer] has released the line for use and it is currently dressed with a StatLock, Tegaderm, and CHG disc. Verification has been performed for blood return and line patency. Arm Circumference: 29.5 cm Equipment: BARD PASV catheter Catheter Type: 5fr double lumen PASV catheter Lot #: [id number]
[2024-12-15] MEDS: Parenteral Nutrition 2,040 ML 85 ML IV (22:52)
[2024-12-16] VITALS (14 sets, daily range): BP systolic 116–180; BP diastolic 65–82; PULSE 56–133; RESP 18–22; TEMP 36.2–36.6; O2SAT 90–97
--- NOTE | 2024-12-16 08:06 | PM.PNGS ---
Subjective Subjective Date of Service: 12/16/24 Interval history: No events reported as per the nursing staff Mental status remains the same Physical Exam Vital Signs: Vital Signs: Last Vital Signs Temp 97.8 F 12/16/24 07:51 Pulse 106 H 12/16/24 07:51 Resp 22 H 12/16/24 07:51 BP 180/76 H 12/16/24 07:51 Pulse Ox 91 L 12/16/24 07:51 O2 Del Method Room Air 12/16/24 07:51 O2 Flow Rate 1 12/13/24 23:32 BMI result Body Mass Index 28.5 Const: Other: Appears comfortable, awake but does not appear to be oriented Cardio: Rhythm: regular rhythm GI: Palpation (GI): Soft to palpation, not firm, nontender and no guarding Objective Data Active Medications Amlodipine Besylate (Amlodipine Besylate 10 Mg Tablet) 10 mg PO BEDTIME YELITZA; Protocol On Hold: 12/13/24 15:18 Last Admin: 12/12/24 22:34 Dose: Not Given Documented By: MAN Non-Admin Reason: strict NPO Atorvastatin Calcium (Atorvastatin Calcium 40 Mg Tablet) 40 mg PO BEDTIME YELITZA Last Admin: 12/15/24 19:38 Dose: Not Given Documented By: EMERALD Non-Admin Reason: strict NPO Diazepam (Diazepam 10 Mg/2 Ml Cartridge) 10 mg IVPUSH Q8H PRN PRN Reason: Anxiety Enoxaparin Sodium (Enoxaparin Sodium 40 Mg/0.4 Ml Syringe) 40 mg SUBCUT Q24H YELITZA On Hold: 12/13/24 11:37 Last Admin: 12/13/24 12:00 Dose: Not Given Documented By: CORETTA Non-Admin Reason: Physician Held Med Haloperidol Lactate (Haloperidol Lactate 5 Mg/Ml Vial) 2.5 mg IM ONCE PRN PRN Reason: Agitation Last Admin: 12/13/24 03:35 Dose: 2.5 mg Documented By: MAN Hydralazine HCl (Hydralazine Hcl 20 Mg/Ml Vial) 10 mg IVPUSH Q6H PRN; Protocol PRN Reason: SBP > 160 Last Admin: 12/14/24 17:06 Dose: 10 mg Documented By: TOBI Hydralazine HCl (Hydralazine Hcl 20 Mg/Ml Vial) 10 mg IVPUSH TID [facility]; Protocol Last Admin: 12/15/24 19:51 Dose: 10 mg Documented By: EMERALD Ampicillin Sodium/Sulbactam (Sodium 3 gm/ Sodium Chloride) 100 mls @ 200 mls/hr IV Q6H [facility] Last Infusion: 12/16/24 03:47 Dose: Infused Documented By: EMERALD Nutrition (Parenteral) (Parenteral Nutrition) 2,040 mls @ 85 mls/hr IV .Q24H [facility]; Protocol Stop: 12/16/24 20:59 Last Infusion: 12/16/24 02:27 Dose: 0 mls/hr Documented By: EMERALD Lisinopril (Lisinopril 5 Mg Tablet) 5 mg PO DAILY [facility]; Protocol On Hold: 12/13/24 15:18 Last Admin: 12/13/24 15:35 Dose: Not Given Documented By: CORETTA Non-Admin Reason: NPO Ondansetron HCl (Ondansetron Hcl 4 Mg/2 Ml Vial) 4 mg IVPUSH Q8H PRN PRN Reason: Nausea and Vomiting Last Admin: 12/15/24 05:56 Dose: 4 mg Documented By: EMERALD Pharmacy Consult (Consult Rx Parenteral Nutrition Ordering) 1 each MISCELLANE DAILY PRN PRN Reason: Consult order Scopolamine (Scopolamine 1.5 Mg Patch.Td.3) 1.5 mg EAR-BEHIND Q72H [facility] Last Admin: 12/13/24 16:07 Dose: 1.5 mg Documented By: CORETTA Sodium Chloride (0.9 % Sodium Chloride Flush 3 Ml Syringe) 3 ml IVFLUSH QSHIFT [facility] Last Admin: 12/15/24 23:29 Dose: Not Given Documented By: EMERALD Non-Admin Reason: IV Running Labs 12/14/24 07:04 12/16/24 07:35 Labs: Laboratory Results - last 24 hr 12/16/24 07:35 Hold Purple Top SEE NOTE Microbiology Microbiology Results: Microbiology 12/10/24 08:09 Blood Culture - Final Blood - Venous No growth after 5 days. 12/10/24 08:09 Blood Culture - Final Blood - Venous No growth after 5 days. Procedures Date of Service Date of Service: 12/16/24 Progress Note: A&P Assessment and plan (1) Dysphagia: Status: Acute Assessment and Plan: Recent CVA and failed swallow eval I have been asked to place a PEG tube I had a long discussion with his healthcare proxy Fernando Lynn at [phone] I explained to him the technique of PEG tube placement I discussed with him the risks including but not limited to bleeding, infections, injury to other organs including bowel and the esophagus, dislodgement, loss of airway, as well as the benefits and alternatives I explained to him what to expect postoperatively He has given consent The patient is on the schedule today for PEG tube placement Time Spent With Patient Time: Total time managing care of this patient today ____ minutes. Quality Stroke Does the patient have a stroke diagnosis?: Yes Reason for No Anti-thrombotic by Day Two: Complication of medical care (pt failed swallow eval -- will order if passes) VTE Prior VTE?: Yes VTE Risk Level:: Medical - moderate - high VTE Device Contraindication: N/A - Device Ordered VTE Drug Contraindication: N/A - Med Ordered
[2024-12-16 08:23] LABS: Alanine Aminotransferase 12 U/L (0-40); Albumin Level 3.2 g/dL (3.5-5.0); Alkaline Phosphatase 48 U/L (39-117); Anion Gap 15 (12-20); Aspartate Amino Transferase 38 U/L (5-37); Blood Urea Nitrogen 59 mg/dL (9-16); Calcium 8.3 mg/dL (8.4-10.2); Carbon Dioxide 22 mmol/L (22-29); Chloride 109 mmol/L (96-108); Creatinine Clr Calc Pharmacy 37.3; Estimated Glomerular Filt Rate 41; Magnesium 2.4 mg/dL (1.6-2.6); Potassium 4.2 mmol/L (3.3-5.1); Sodium 142 mmol/L (135-145); Total Protein 6.1 g/dL (6.5-8.0)
[2024-12-16] MEDS: 0.9 % Sodium Chloride Flush 3 ML SYRINGE IVFLUSH ×3 (08:43→23:34)
--- NOTE | 2024-12-16 10:05 | HO.ANESPROP2 ---
[facility] Active Problems Active Problems: All Active Problems (Updated 12/15/24 @ 09:00 by Xavier Laughlin PA-C) Dysphagia (Acute) Vertebral artery stenosis (Acute) Dementia (Acute) Acute CVA (cerebrovascular accident) (Acute) Aspiration pneumonia (Acute) Renal mass (Acute) Gastroesophageal reflux disease (Acute) Mood disorder (Acute) Hypertension (Acute) DVT (deep venous thrombosis) (Acute) Past Medical History Medical History Gastroesophageal reflux disease Chronic kidney disease Mood disorder Hypertension Social History Social History Household Members: None Household Members Other:: lives alone Housing: House Do you presently have visiting nurse or other home services: No Comment: 1:1 sitter Patient Tobacco Use Status: Never used Tobacco Substance Use Type: Marijuana Advance Directives Date on File: 05/14/24 service: No Meds Allergies Allergy/AdvReac Type Severity Reaction Status Date / Time No Known Allergies Allergy Verified 12/10/24 07:42 Active Medications: Current Medications Amlodipine Besylate (Amlodipine Besylate 10 Mg Tablet) 10 mg PO BEDTIME YELITZA; Protocol On Hold: 12/13/24 15:18 Last Admin: 12/12/24 22:34 Dose: Not Given Atorvastatin Calcium (Atorvastatin Calcium 40 Mg Tablet) 40 mg PO BEDTIME YELITZA Last Admin: 12/15/24 19:38 Dose: Not Given Diazepam (Diazepam 10 Mg/2 Ml Cartridge) 10 mg IVPUSH Q8H PRN PRN Reason: Anxiety Enoxaparin Sodium (Enoxaparin Sodium 40 Mg/0.4 Ml Syringe) 40 mg SUBCUT Q24H YELITZA On Hold: 12/13/24 11:37 Last Admin: 12/13/24 12:00 Dose: Not Given Haloperidol Lactate (Haloperidol Lactate 5 Mg/Ml Vial) 2.5 mg IM ONCE PRN PRN Reason: Agitation Last Admin: 12/13/24 03:35 Dose: 2.5 mg Hydralazine HCl (Hydralazine Hcl 20 Mg/Ml Vial) 10 mg IVPUSH Q6H PRN; Protocol PRN Reason: SBP > 160 Last Admin: 12/14/24 17:06 Dose: 10 mg Hydralazine HCl (Hydralazine Hcl 20 Mg/Ml Vial) 10 mg IVPUSH TID [facility]; Protocol Last Admin: 12/16/24 08:40 Dose: 10 mg Ampicillin Sodium/Sulbactam (Sodium 3 gm/ Sodium Chloride) 100 mls @ 200 mls/hr IV Q6H [facility] Last Admin: 12/16/24 08:39 Dose: 200 mls/hr Nutrition (Parenteral) (Parenteral Nutrition) 2,040 mls @ 85 mls/hr IV .Q24H [facility]; Protocol Stop: 12/16/24 20:59 Last Infusion: 12/16/24 02:27 Dose: 0 mls/hr Lisinopril (Lisinopril 5 Mg Tablet) 5 mg PO DAILY [facility]; Protocol On Hold: 12/13/24 15:18 Last Admin: 12/13/24 15:35 Dose: Not Given Ondansetron HCl (Ondansetron Hcl 4 Mg/2 Ml Vial) 4 mg IVPUSH Q8H PRN PRN Reason: Nausea and Vomiting Last Admin: 12/15/24 05:56 Dose: 4 mg Pharmacy Consult (Consult Rx Parenteral Nutrition Ordering) 1 each MISCELLANE DAILY PRN PRN Reason: Consult order Scopolamine (Scopolamine 1.5 Mg Patch.Td.3) 1.5 mg EAR-BEHIND Q72H [facility] Last Admin: 12/13/24 16:07 Dose: 1.5 mg Sodium Chloride (0.9 % Sodium Chloride Flush 3 Ml Syringe) 3 ml IVFLUSH QSHIFT [facility] Last Admin: 12/16/24 08:43 Dose: 3 ml Home Medications ?Medication ?Instructions ?Recorded ?Confirmed ?Last Taken ?Type doxepin 25 mg capsule 25 mg PO BEDTIME 05/06/24 12/10/24 12/09/24 21:00 History pantoprazole 40 mg tablet,delayed 40 mg PO DAILY@0630 05/06/24 12/10/24 12/10/24 09:00 History release escitalopram oxalate 10 mg tablet 10 mg PO DAILY 12/10/24 12/10/24 12/10/24 09:00 History Exam Height,Weight and Vital Signs: Height 5 ft 7 in Weight 82.6 kg Last Vital Signs Temp 97.8 F 12/16/24 07:51 Pulse 106 H 12/16/24 07:51 Resp 22 H 12/16/24 07:51 BP 180/76 H 12/16/24 07:51 Pulse Ox 91 L 12/16/24 07:51 O2 Del Method Room Air 12/16/24 07:51 O2 Flow Rate 1 12/13/24 23:32 Pertinent Lab Results Pertinent Lab Results: Laboratory Tests 12/10/24 12/10/24 12/10/24 07:59 08:08 08:09 WBC 11.4 H RBC 4.05 L Hgb 12.3 L Hct 37.2 L MCV 91.9 MCH 30.4 MCHC 33.1 RDW 13.8 Plt Count 171 MPV 10.0 Immature Gran % (Auto) 0.4 Neut % (Auto) 86.1 H Lymph % (Auto) 7.3 L Norman % (Auto) 6.1 Eos % (Auto) 0.0 Baso % (Auto) 0.1 Lymph # (Auto) 0.8 L Norman # (Auto) 0.7 Eos # (Auto) 0.0 Baso # (Auto) 0.0 Abs Immat Gran (auto) 0.05 H Absolute Neuts (auto) 9.8 H Absolute Nucleated RBC 0.000 Nucleated RBC % (auto) 0.0 Hold Purple Top VBG pH VBG pCO2 VBG pO2 VBG HCO3 VBG O2 Saturation VBG Base Excess Sodium 144 Potassium 3.9 Chloride 109 H Carbon Dioxide 27 Anion Gap 12 BUN 26 H Creatinine 1.56 H Estim Creat Clear Calc 38.3 Estimated GFR 43 POC Glucose 135 H Random Glucose 148 H Estimat Average Glucose 100 Hemoglobin A1c % 5.1 Lactic Acid 1.7 Calcium 8.9 Phosphorus Magnesium 2.0 Total Bilirubin 0.6 Direct Bilirubin 0.3 AST 35 ALT 20 Alkaline Phosphatase 84 Total Creatine Kinase 111 Troponin I High Sens 17.5 C-Reactive Protein 0.71 H B-Natriuretic Peptide 276 H Total Protein 7.1 Albumin 3.7 Triglycerides 47 Cholesterol 162 LDL Cholesterol, Calc 106 H HDL Cholesterol 47 Lipase 12 Procalcitonin 0.10 Urine Color Urine Appearance Urine pH Ur Specific [place] Urine Protein Urine Glucose (UA) Urine Ketones Urine Blood Urine Nitrite Ur Leukocyte Esterase Urine RBC Urine WBC Ur Squamous Epith Cells Urine Bacteria Hyaline Casts Influenza Type A (PCR) NEGATIVE Influenza Type B (PCR) NEGATIVE RSV RNA Qual (PCR) NEGATIVE SARS-CoV-2 RNA (RT-PCR) NEGATIVE 12/10/24 12/11/24 12/11/24 08:17 00:46 07:01 WBC RBC Hgb Hct MCV MCH MCHC RDW Plt Count MPV Immature Gran % (Auto) Neut % (Auto) Lymph % (Auto) Norman % (Auto) Eos % (Auto) Baso % (Auto) Lymph # (Auto) Norman # (Auto) Eos # (Auto) Baso # (Auto) Abs Immat Gran (auto) Absolute Neuts (auto) Absolute Nucleated RBC Nucleated RBC % (auto) Hold Purple Top VBG pH 7.38 VBG pCO2 51 VBG pO2 57 VBG HCO3 31 H VBG O2 Saturation 85.0 VBG Base Excess 4.9 Sodium 144 Potassium 3.9 Chloride 112 H Carbon Dioxide 26 Anion Gap 10 L BUN 19 H Creatinine 1.30 Estim Creat Clear Calc 46.6 Estimated GFR 53 POC Glucose Random Glucose 100 Estimat Average Glucose Hemoglobin A1c % Lactic Acid Calcium 8.4 Phosphorus 3.2 Magnesium 1.9 Total Bilirubin 0.6 Direct Bilirubin AST 28 ALT 13 Alkaline Phosphatase 60 Total Creatine Kinase Troponin I High Sens C-Reactive Protein B-Natriuretic Peptide Total Protein 6.1 L Albumin 3.1 L Triglycerides Cholesterol LDL Cholesterol, Calc HDL Cholesterol Lipase Procalcitonin Urine Color Yellow Urine Appearance Clear Urine pH 5.0 Ur Specific [place] >= 1.030 H Urine Protein 30 (1+) H Urine Glucose (UA) Negative Urine Ketones Negative Urine Blood Trace H Urine Nitrite Negative Ur Leukocyte Esterase Trace H Urine RBC 3-5 H Urine WBC 21-50 H Ur Squamous Epith Cells 0-2 Urine Bacteria None Seen Hyaline Casts 0-2 Influenza Type A (PCR) Influenza Type B (PCR) RSV RNA Qual (PCR) SARS-CoV-2 RNA (RT-PCR) 12/12/24 12/12/24 12/13/24 06:45 06:53 07:19 WBC RBC Hgb Hct MCV MCH MCHC RDW Plt Count MPV Immature Gran % (Auto) Neut % (Auto) Lymph % (Auto) Norman % (Auto) Eos % (Auto) Baso % (Auto) Lymph # (Auto) Norman # (Auto) Eos # (Auto) Baso # (Auto) Abs Immat Gran (auto) Absolute Neuts (auto) Absolute Nucleated RBC Nucleated RBC % (auto) Hold Purple Top SEE NOTE VBG pH VBG pCO2 VBG pO2 VBG HCO3 VBG O2 Saturation VBG Base Excess Sodium 142 141 Potassium 4.2 4.3 Chloride 102 108 Carbon Dioxide 28 24 Anion Gap 16 13 BUN 20 H 22 H Creatinine 1.25 1.27 Estim Creat Clear Calc 48.4 47.7 Estimated GFR 56 55 POC Glucose Random Glucose 106 123 H Estimat Average Glucose Hemoglobin A1c % Lactic Acid Calcium 8.5 8.5 Phosphorus 3.2 4.0 Magnesium 2.0 2.1 Total Bilirubin 0.6 0.6 Direct Bilirubin AST 28 35 ALT 11 15 Alkaline Phosphatase 56 62 Total Creatine Kinase Troponin I High Sens C-Reactive Protein B-Natriuretic Peptide Total Protein 6.1 L 6.3 L Albumin 3.1 L 3.1 L Triglycerides Cholesterol LDL Cholesterol, Calc HDL Cholesterol Lipase Procalcitonin Urine Color Urine Appearance Urine pH Ur Specific [place] Urine Protein Urine Glucose (UA) Urine Ketones Urine Blood Urine Nitrite Ur Leukocyte Esterase Urine RBC Urine WBC Ur Squamous Epith Cells Urine Bacteria Hyaline Casts Influenza Type A (PCR) Influenza Type B (PCR) RSV RNA Qual (PCR) SARS-CoV-2 RNA (RT-PCR) 12/14/24 12/15/24 12/16/24 07:04 06:52 07:35 WBC 9.1 RBC 3.54 L Hgb 10.7 L Hct 32.1 L MCV 90.7 MCH 30.2 MCHC 33.3 RDW 13.3 Plt Count 150 L MPV 10.2 Immature Gran % (Auto) Neut % (Auto) Lymph % (Auto) Norman % (Auto) Eos % (Auto) Baso % (Auto) Lymph # (Auto) Norman # (Auto) Eos # (Auto) Baso # (Auto) Abs Immat Gran (auto) Absolute Neuts (auto) Absolute Nucleated RBC 0.000 Nucleated RBC % (auto) 0.0 Hold Purple Top SEE NOTE VBG pH VBG pCO2 VBG pO2 VBG HCO3 VBG O2 Saturation VBG Base Excess Sodium 140 140 142 Potassium 4.3 4.9 4.2 Chloride 107 110 H 109 H Carbon Dioxide 25 20 L 22 Anion Gap 12 15 15 BUN 24 H 35 H 59 H Creatinine 1.20 1.32 1.62 H Estim Creat Clear Calc 50.4 45.8 37.3 Estimated GFR 58 52 41 POC Glucose Random Glucose 125 H 119 H 124 H Estimat Average Glucose Hemoglobin A1c % Lactic Acid Calcium 8.6 8.6 8.3 L Phosphorus 4.0 4.6 H 4.3 Magnesium 2.1 2.4 2.4 Total Bilirubin 0.6 0.6 0.6 Direct Bilirubin AST 37 45 H 38 H ALT 14 16 12 Alkaline Phosphatase 58 54 48 Total Creatine Kinase Troponin I High Sens C-Reactive Protein B-Natriuretic Peptide Total Protein 6.3 L 6.4 L 6.1 L Albumin 3.2 L 3.2 L 3.2 L Triglycerides Cholesterol LDL Cholesterol, Calc HDL Cholesterol Lipase Procalcitonin Urine Color Urine Appearance Urine pH Ur Specific [place] Urine Protein Urine Glucose (UA) Urine Ketones Urine Blood Urine Nitrite Ur Leukocyte Esterase Urine RBC Urine WBC Ur Squamous Epith Cells Urine Bacteria Hyaline Casts Influenza Type A (PCR) Influenza Type B (PCR) RSV RNA Qual (PCR) SARS-CoV-2 RNA (RT-PCR)
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
--- NOTE | 2024-12-16 10:25 | PM.EVENT ---
Event Note Date of Service: 12/16/24 Event Note: Patient seems to be a little short of breath now Discussed with hospitalist service - likely to be in heart failure We will hold off on PEG tube placement for today We will reschedule once he is medically stable Time Spent With Patient Time: Total time managing care of this patient today ____ minutes.
--- NOTE | 2024-12-16 10:30 | MHC.SLORD ---
Speech Language Pathology Order Status: PEG postponed til tomorrow. DISCOVERY GUIDE tx indicated upon d/c to strengthen oropharyngeal function. Pt is NPO d/t severe pharyngeal dysphagia as visualized on MBSS 12/14. A repeat MBSS is recommended in the future prior to determining if pt can resume PO. PA consulted.
[2024-12-16 11:10] LABS: Hematocrit 23.2 % (42.0-52.0); Hemoglobin 7.8 g/dl (14.0-18.0); Mean Corpuscular HGB Conc 33.6 g/dl (31.0-36.0); Mean Corpuscular Hemoglobin 31.1 pg (27.0-33.0); Mean Corpuscular Volume 92.4 fL (80.0-98.0); NRBC Abs Auto 0.000 X10*3/uL (0.0-0.012); NRBC Pct Auto 0.0 /100WBC (0.0-0.2); Platelet Count 137 X10*3/uL (160-400); Red Blood Count 2.51 X10*6/uL (4.60-5.80); White Blood Count 12.0 X10*3/uL (4.8-10.8)
[2024-12-16 11:10] LABS: Ammonia 26 umol/L (13-55)
[2024-12-16 11:24] LABS: Anion Gap 15 (12-20); Blood Urea Nitrogen 62 mg/dL (9-16); Calcium 8.4 mg/dL (8.4-10.2); Carbon Dioxide 24 mmol/L (22-29); Chloride 108 mmol/L (96-108); Creatinine Clr Calc Pharmacy 36.7; Estimated Glomerular Filt Rate 40; Potassium 4.1 mmol/L (3.3-5.1); Sodium 143 mmol/L (135-145)
--- NOTE | 2024-12-16 11:38 | MHC.CLN ---
F/U DR DACOSTA HOLDING ON PEG TUBE PLACEMENT TODAY PT REMAINS NPO PER CHILD CARE ASSISTANT REVIEWED LABS DISCUSSED WITH PHARMACY RECOMMEND PPN AT MAX GOAL RATE 70ML/HR WITH 68G LIPIDS TO PROVIDE 1537 TOTAL KCALS (23KCALS/KG BASED ON IBW), 168G DEXTROSE, 71G PROTEIN (1.05G/KG) REPLETE LYTES NEEDED
[2024-12-16 16:03] LABS: B Type Natriuretic Peptide 301 pg/mL (<100)
[2024-12-16] MEDS: Parenteral Nutrition 1,680 ML 70 ML IV (23:09)
[2024-12-16] MEDS: diazePAM 10 MG/2 ML CARTRIDGE IVPUSH (23:20)
[2024-12-17] VITALS (8 sets, daily range): BP systolic 132–142; BP diastolic 56–70; PULSE 67–88; RESP 18–20; TEMP 36.1–36.6; O2SAT 91–97
[2024-12-17 01:01] LABS: Appearance Urine Cloudy; Glucose Urine UA Negative (Negative); PH 5.0 (5.0-9.0); Specific Gravity - Urine 1.025 (1.005-1.025); UMIC TRIGGER UA YES
[2024-12-17 07:19] LABS: Alanine Aminotransferase 16 U/L (0-40); Albumin Level 3.1 g/dL (3.5-5.0); Alkaline Phosphatase 46 U/L (39-117); Anion Gap 12 (12-20); Aspartate Amino Transferase 39 U/L (5-37); Blood Urea Nitrogen 71 mg/dL (9-16); Calcium 8.2 mg/dL (8.4-10.2); Carbon Dioxide 27 mmol/L (22-29); Chloride 110 mmol/L (96-108); Creatinine Clr Calc Pharmacy 37.1; Estimated Glomerular Filt Rate 41; Magnesium 2.6 mg/dL (1.6-2.6); Potassium 4.3 mmol/L (3.3-5.1); Sodium 145 mmol/L (135-145); Total Protein 5.8 g/dL (6.5-8.0)
[2024-12-17 08:27] LABS: EOS Counted 0 CELLS; EOS QC POS YES; EOS Stain Quality OK YES; WBC, Counted 100 CELLS
[2024-12-17] MEDS: 0.9 % Sodium Chloride Flush 3 ML SYRINGE IVFLUSH ×3 (09:49→20:44)
[2024-12-17 10:04] LABS: Hematocrit 22.9 % (42.0-52.0); Hemoglobin 7.2 g/dl (14.0-18.0); Mean Corpuscular HGB Conc 31.4 g/dl (31.0-36.0); Mean Corpuscular Hemoglobin 30.3 pg (27.0-33.0); Mean Corpuscular Volume 96.2 fL (80.0-98.0); NRBC Abs Auto 0.050 X10*3/uL (0.0-0.012); NRBC Pct Auto 0.4 /100WBC (0.0-0.2); Platelet Count 127 X10*3/uL (160-400); Red Blood Count 2.38 X10*6/uL (4.60-5.80); White Blood Count 12.1 X10*3/uL (4.8-10.8)
--- NOTE | 2024-12-17 10:07 | MHC.CLN ---
F/U POSSIBLE PEG TUBE PLACEMENT TODAY PT REMAINS NPO PER GARMENT PATTERNMAKER REVIEWED LABS DISCUSSED WITH PHARMACY CONTINUE PPN AT MAX GOAL RATE 70ML/HR WITH 68G LIPIDS PROVIDES 1537 TOTAL KCALS (23KCALS/KG BASED ON IBW), 168G DEXTROSE, 71G PROTEIN (1.05G/KG) REPLETE LYTES NEEDED WILL SWITCH TO TF WHEN ABLE
--- NOTE | 2024-12-17 10:55 | P.CONNP_ITS ---
History of Present Illness Reason for Consult Consult date: 12/17/24 Chief Complaint Chief complaint: Stroke History of Present Illness Narrative: 79 y/o male with orthostatic hypotension, CKD3B, mood disorder, GERD, provoked DVT s/p 6 months eliquis, renal mass followed by urology. Presented 12/10 with complaint of fall 2 days prior preceeded by dizziness. He arrived with family, complaints of facial asymmetry, speech changes. CTA with near complete occlusion of segment of left vertebral artery, placed on dual antiplatelet therapy and statin for acute stroke per vascular surgery. He was also hypoxic on presentation, ?aspiration pneumonia and started on abx. Nephrology consulted for KIM. urine output is minimal (<500cc/24 hours), though unclear if all has been recorded. pateint had precipitous drop in blood pressure from 180/86 to 121/73 evening of 12/15, corresponding with creatinine bump. patient is unable to take oral medication so has been receiving scheduled IV hydralazine and lopressor for management of hypertension UA is bland creatinine: 12/10 1.56 12/11 1.30 12/12 1.25 12/13 1.27 12/14 1.20 12/15 1.32 8. 1.62 12/17 1.63 Review of Systems Review of Systems Yes Unobtainable due to mental condition and Unobtainable due to mental status Reports confusion Psychiatric: Reports confusion PMFSH Past Medical History Medical History Gastroesophageal reflux disease Chronic kidney disease Mood disorder Hypertension Social History Social History Household Members: None Household Members Other:: lives alone Housing: House Do you presently have visiting nurse or other home services: No Comment: 1:1 sitter Patient Tobacco Use Status: Never used Tobacco Substance Use Type: Marijuana Advance Directives Date on File: 05/14/24 service: No Meds Allergies Allergy/AdvReac Type Severity Reaction Status Date / Time No Known Allergies Allergy Verified 12/10/24 07:42 Active Medications: Current Medications Atorvastatin Calcium (Atorvastatin Calcium 40 Mg Tablet) 40 mg PO BEDTIME YELITZA Last Admin: 12/16/24 23:01 Dose: Not Given Diazepam (Diazepam 10 Mg/2 Ml Cartridge) 2.5 mg IVPUSH Q8H PRN PRN Reason: Anxiety Enoxaparin Sodium (Enoxaparin Sodium 40 Mg/0.4 Ml Syringe) 40 mg SUBCUT Q24H [facility] Last Admin: 12/16/24 12:46 Dose: 40 mg Haloperidol Lactate (Haloperidol Lactate 5 Mg/Ml Vial) 2.5 mg IM ONCE PRN PRN Reason: Agitation Last Admin: 12/13/24 03:35 Dose: 2.5 mg Hydralazine HCl (Hydralazine Hcl 20 Mg/Ml Vial) 10 mg IVPUSH Q6H PRN; Protocol PRN Reason: SBP > 160 Last Admin: 12/14/24 17:06 Dose: 10 mg Hydralazine HCl (Hydralazine Hcl 20 Mg/Ml Vial) 10 mg IVPUSH TID [facility]; Protocol Last Admin: 12/17/24 09:50 Dose: 10 mg Ampicillin Sodium/Sulbactam (Sodium 3 gm/ Sodium Chloride) 100 mls @ 200 mls/hr IV Q6H [facility] Last Infusion: 12/17/24 10:44 Dose: Infused Nutrition (Parenteral) (Parenteral Nutrition) 1,680 mls @ 70 mls/hr IV .Q24H [facility]; Protocol Stop: 12/17/24 20:59 Last Admin: 12/16/24 23:09 Dose: 70 mls/hr Nutrition (Parenteral) (Parenteral Nutrition) 1,680 mls @ 70 mls/hr IV .Q24H [facility]; Protocol Stop: 12/18/24 20:59 Metoprolol Tartrate (Metoprolol Tartrate 5 Mg/5 Ml Vial) 5 mg IVPUSH TID [facility]; Protocol Last Admin: 12/17/24 09:50 Dose: 5 mg Ondansetron HCl (Ondansetron Hcl 4 Mg/2 Ml Vial) 4 mg IVPUSH Q8H PRN PRN Reason: Nausea and Vomiting Last Admin: 12/15/24 05:56 Dose: 4 mg Pharmacy Consult (Consult Rx Parenteral Nutrition Ordering) 1 each MISCELLANE DAILY PRN PRN Reason: Consult order Scopolamine (Scopolamine 1.5 Mg Patch.Td.3) 1.5 mg EAR-BEHIND Q72H [facility] Last Admin: 12/16/24 17:28 Dose: 1.5 mg Sodium Chloride (0.9 % Sodium Chloride Flush 3 Ml Syringe) 3 ml IVFLUSH QSHIFT [facility] Last Admin: 12/17/24 09:49 Dose: 3 ml Home Medications ?Medication ?Instructions ?Recorded ?Confirmed ?Last Taken ?Type doxepin 25 mg capsule 25 mg PO BEDTIME 05/06/2412/09/24 21:00 History pantoprazole 40 mg tablet,delayed 40 mg PO DAILY@0630 05/06/24 12/10/24 12/10/24 09:00 History release escitalopram oxalate 10 mg tablet 10 mg PO DAILY 12/1012/10/24 12/10/24 09:00 History Physical Exam Vital Signs: Last Vital Signs Temp 97.2 F 12/17/24 12:00 Pulse 82 12/17/24 12:00 Resp 20 12/17/24 12:00 BP 140/56 H 12/17/24 12:00 Pulse Ox 97 12/17/24 12:00 O2 Del Method Nasal Cannula 12/17/24 12:00 O2 Flow Rate 4 12/17/24 12:00 BMI result Body Mass Index 28.5 Const General: confusion and lethargic Orientation/consciousness: confusion and lethargic Resp Effort & Inspection: normal respiratory effort Auscultation: rhonchi Cardio Rate: regular rate Rhythm: regular rhythm Heart sounds: S1 normal heart sound present and S2 normal heart sound present GI Palpation (GI): Soft to palpation and nontender Skin Rashes: no rashes Neuro General: confusion Extrem General: No edema Results Lab Results 12/17/24 09:42 12/17/24 06:37 Lab results: Chemistry 12/15/24 12/16/24 12/16/24 06:52 07:35 10:48 Sodium 140 142 143 Potassium 4.9 4.2 4.1 Carbon Dioxide 20 L 22 24 BUN 35 H 59 H 62 H Creatinine 1.32 1.62 H 1.65 H Calcium 8.6 8.3 L 8.4 Phosphorus 4.6 H 4.3 12/17/24 06:37 Sodium 145 Potassium 4.3 Carbon Dioxide 27 BUN 71 H Creatinine 1.63 H Calcium 8.2 L Phosphorus 4.9 H Hematology 12/16/24 12/17/24 10:48 09:42 WBC 12.0 H 12.1 H Hgb 7.8 L D 7.2 L Plt Count 137 L 127 L Urinalysis 12/16/24 23:03 Urine Color Yellow Urine Appearance Cloudy Urine pH 5.0 Ur Specific [place] 1.025 Urine Protein Trace Urine Glucose (UA) Negative Urine Ketones Negative Urine Blood Negative Urine Nitrite Negative Ur Leukocyte Esterase Trace H Urine RBC 0-2 Urine WBC 0-5 Ur Squamous Epith Cells 6-10 Hyaline Casts 3-5 Urine Studies 12/16/24 23:03 Urine Osmolality 623 Assessment and Plan (1) KIM (acute kidney injury): Status: Acute Plan KIM likely hemodynamic ATN from precipitous drop in blood pressures. Urine osm is elevated, may be dry given concentrated urine, may consider additional IVF- lung sounds with loud rhonchi due to upper airway secretions, so unable to appreciate lower airway breath sounds. May continue TPN as ordered. will check US to rule out obstruction given creatinine rise after abdomen/pelvis imaging was initially done. will check haptoglobin, LDH and peripheral smear to rule out TMA given anemia continue to hold lisinopril if/when patient is able to take PO medications Discussed with Dr Levin. Procedures Date of Service Date of Service: 12/17/24
[2024-12-17 11:12] LABS: Band Neutrophils Percent 1 % (3-5); Lymphocytes Absolute Manual 1.9 X10*3/uL (1.2-4.9); Lymphocytes Percent Manual 16 % (20-40); Monocytes Absolute Manual 1.6 X10*3/uL (0.1-1.2); Monocytes Percent Manual 13 % (2-11); Neutrophils Absolute Manual 8.6 X10*3/uL (2.0-8.3); Neutrophils Percent Manual 70 % (45-73)
[2024-12-17 11:14] LABS: Polychromasia 1+ (0-2) /OIF; RBC Morphology NOTED
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
[2024-12-17 13:15] LABS: Iron 48 mcg/dL (45-160); Percent Iron Saturation 25 % (15-50); Total Iron Binding Capacity 193 mcg/dL (228-428); Unsaturated Iron Binding 145 ug/dL
[2024-12-17 13:20] LABS: Reticulocytes Absolute 0.098 X10*6/uL (0.026-0.095)
[2024-12-17 13:28] LABS: Ferritin 136 ng/mL (20-250)
--- NOTE | 2024-12-17 15:22 | MHC.SLORD ---
Speech Language Pathology Order Status: Attempted to see patient for [place] ongoing assessment mid-day. Per sitter patient had been medicated due to agitation; patient did not wake with reposititioning or attempt at oral care. TOBACCO ROLLER will re-attempt/continue to follow.
--- NOTE | 2024-12-17 18:38 | PC.NURSE ---
skin tear noted to L forearm upon patient being transferred back from [facility]. xeroform and sterile gauze applied.
[2024-12-17] MEDS: Parenteral Nutrition 1,680 ML 70 ML IV (22:52)
[2024-12-18 03:09] VITALS: BP 158/76; PULSE 86; RESP 18; TEMP 36.4; O2SAT 96
[2024-12-18 08:00] VITALS: BP 124/66; PULSE 84; RESP 20; TEMP 36.4; O2SAT 94
--- NOTE | 2024-12-18 08:21 | PM.HEMONCCN ---
Subjective - Subjective Chief complaint: None Patient: new to practice Consult date: 12/18/24 Primary Care Provider: Santiago Drake MD Water Plumber Utilized?: No - Upper Sorbian Speaking HPI - Consult Narrative Reason for consult: Anemia Narrative: Pawel Will is a 79 year old male he was admitted to hospital on 12/10/2024 after a fall. Patient has had multiple falls prior to admission along with episodes of dizziness. Grandson also reported facial asymmetry, imaging with CT angiogram revealed complete occlusion of left vertebral artery. He was also noted to be hypoxic and he was diagnosed with aspiration pneumonia. He failed bedside swallow evaluation. Patient is being treated for aspiration pneumonia with Zosyn. Blood cultures have been negative. He also suffered acute kidney injury and has been receiving IV hydration. He was lot of mouth secretions and failed swallow evaluation. On presentation his hemoglobin was 12.3 gram/dL. A gradually has declined to 10.7 gram/dL on 12/14/2024 and 7.8 g per dL on 12/16/2024. Unable to get any history from patient because of speech impairment. Review of Systems - Constitutional Reports as per HPI - Neurologic Reports confusion, Denies dizziness [facility] Medical History: Medical History (Last Reviewed 12/16/24 @ 10:05 by Rupali Grace MD) Chronic kidney disease Gastroesophageal reflux disease Hypertension Mood disorder Functional capacity: independent ambulation Social History: Social History (Last Reviewed 12/16/24 @ 10:05 by Rupali Grace MD) Living Situation History: Household Members: None Household Members Other:: lives alone Housing: House Do you presently have visiting nurse or other home services: No Tobacco History: Patient Tobacco Use Status: Never used Tobacco Substance Use History: Substance Use Type: Marijuana Advance Directives: Advance Directives Date on File: 05/14/24 Occupation Assessmet: service: No Home Medications and Allergies Current Medications: Current Medications Atorvastatin Calcium (Atorvastatin Calcium 40 Mg Tablet) 40 mg PO BEDTIME [facility] Last Admin: 12/17/24 20:44 Dose: Not Given Ceftriaxone Sodium (Ceftriaxone Sodium 1 Gm Vial) 1 gm IVPUSH Q24H [facility] Diazepam (Diazepam 10 Mg/2 Ml Cartridge) 2.5 mg IVPUSH Q8H PRN PRN Reason: Anxiety Enoxaparin Sodium (Enoxaparin Sodium 40 Mg/0.4 Ml Syringe) 40 mg SUBCUT Q24H [facility] On Hold: 12/18/24 08:03 Last Admin: 12/17/24 17:31 Dose: Not Given Haloperidol Lactate (Haloperidol Lactate 5 Mg/Ml Vial) 2.5 mg IM ONCE PRN PRN Reason: Agitation Last Admin: 12/13/24 03:35 Dose: 2.5 mg Hydralazine HCl (Hydralazine Hcl 20 Mg/Ml Vial) 10 mg IVPUSH Q6H PRN; Protocol PRN Reason: SBP > 160 Last Admin: 12/14/24 17:06 Dose: 10 mg Hydralazine HCl (Hydralazine Hcl 20 Mg/Ml Vial) 10 mg IVPUSH TID [facility]; Protocol Last Admin: 12/17/24 20:38 Dose: 10 mg Nutrition (Parenteral) (Parenteral Nutrition) 1,680 mls @ 70 mls/hr IV .Q24H [facility]; Protocol Stop: 12/18/24 20:59 Last Admin: 12/17/24 22:52 Dose: 70 mls/hr Metronidazole (Flagyl) 500 mg in 100 mls @ 100 mls/hr IV Q8H [facility] Metoprolol Tartrate (Metoprolol Tartrate 5 Mg/5 Ml Vial) 5 mg IVPUSH TID [facility]; Protocol Last Admin: 12/17/24 20:36 Dose: 5 mg Ondansetron HCl (Ondansetron Hcl 4 Mg/2 Ml Vial) 4 mg IVPUSH Q8H PRN PRN Reason: Nausea and Vomiting Last Admin: 12/15/24 05:56 Dose: 4 mg Pharmacy Consult (Consult Rx Parenteral Nutrition Ordering) 1 each MISCELLANE DAILY PRN PRN Reason: Consult order Scopolamine (Scopolamine 1.5 Mg Patch.Td.3) 1.5 mg EAR-BEHIND Q72H REPLACED BY [facility] Last Admin: 12/16/24 17:28 Dose: 1.5 mg Sodium Chloride (0.9 % Sodium Chloride Flush 3 Ml Syringe) 3 ml IVFLUSH QSHIFT REPLACED BY [facility] Last Admin: 12/17/24 20:44 Dose: 3 ml Home Medications ?Medication ?Instructions ?Recorded ?Confirmed ?Type doxepin 25 mg capsule 25 mg PO BEDTIME 05/06/24 12/10/24 History pantoprazole 40 mg tablet,delayed 40 mg PO DAILY@0630 05/06/24 12/10/24 History release escitalopram oxalate 10 mg tablet 10 mg PO DAILY 12/10/24 12/10/24 History Allergies Allergy/AdvReac Type Severity Reaction Status Date / Time No Known Allergies Allergy Verified 12/10/24 07:42 Physical Exam Vital signs: Vital Signs Temp 97.6 F 12/18/24 08:00 Pulse 84 12/18/24 08:00 Resp 20 12/18/24 08:00 BP 124/66 12/18/24 08:00 Pulse Ox 94 12/18/24 08:00 O2 Del Method Nasal Cannula 12/18/24 08:00 O2 Flow Rate 2 12/18/24 08:00 Intake & Output 12/17/24 12/18/24 12/18/24 18:59 06:59 18:59 Intake Total 200 / 2064.833 1864.833 / 2064.833 Output Total 800 / 800 Balance 200 / 9766.558 0843.833 / 1264.833 Urine Output (Average ml/kg/hr) 0.81 Intake: Intake, IV Amount 200 / 2064.833 1864.833 / 2064.833 Ampicillin Sodium/Sulbactam Na 200 / 400 200 / 400 3 gm In 0.9 % Sodium Chloride 100 ml @ 200 mls/hr IV Q6H [facility]EL[facility]ZA Rx#:[id number] Parenteral Nutrition 1,680 ml @ 1664.833 / 1664.833 70 mls/hr IV .Q24H YELITZA Rx#: [id number] Output: Output, Urine Amount 800 / 800 Other: Meal Refused No NPO Yes Number of Unmeasured Voids 1 Number of Bowel Movements 1 Urine Bathroom malewick Urine Color Yellow Yellow Stool Incontinent Stool Amount Moderate Stool Color Brown Stool Consistency Soft Weight 82.6 kg - Constitutional Present: no acute distress - Routine HEENT Exam Head: Present: normal inspection Eye: Present: conjunctivae pale - Routine Neck Exam Present: supple - Routine Respiratory Exam Present: CTAB - Routine Cardiovascular Exam Cardiovascular: Present: S1, S2 - Routine Abdominal Exam Present: soft Hem/Onc Consult Result - Labs CBC & Chem 7: 12/17/24 09:42 12/17/24 06:37 Labs: Short CBC 12/17/24 Range/Units 09:42 WBC 12.1 H (4.8-10.8) X10*3/uL Hgb 7.2 L (14.0-18.0) g/dl Hct 22.9 L (42.0-52.0) % Plt Count 127 L (160-400) X10*3/uL Assessment and Plan Patient Active problem list reviewed?: Yes (1) Anemia Status: Acute Assessment and plan: 1. This is a 79-year-old male with past medical history significant for chronic kidney disease, GERD, hypertension who has been admitted for CVA. He was diagnosed with a left renal mass in 05/18/2024. He is being followed by Urology. On day of admission patient's hemoglobin was around 12 gram/dL. During the course of the hospitalization he has had gradual progression of his anemia. Hemoglobin was 10.7 gram/dL on 12/14/2024, platelets also decline to 150 K. On 12/16/2024 hemoglobin dropped further to 7.8 gram/dL with platelets count of 137. Serum creatinine which was 1.56 mg/dL on day of admission, currently it is around 1.63 mg/dL. LDH mildly elevated at 352 units per L on 12/17/2024. Patient has been receiving Zosyn which can cause anemia/pancytopenia. Renal insufficiency can also be contributing to anemia. Haptoglobin is normal and total bilirubin yesterday was normal. Therefore he does not have brisk hemolysis, low suspicion for TMA. Submit peripheral smear for pathology review to rule out schistocytes. Agree with discontinuing Zosyn. Further hematological tests are pending. Rule out hematinic deficiencies. Thank you for the consult, will follow with you. - Time Spent With Patient Time Spent with Patient (in minutes): 20 Additional Coding: - Additional E/M codes Complex E/M visit Add On: CPT G2211
[2024-12-18] MEDS: 0.9 % Sodium Chloride Flush 3 ML SYRINGE IVFLUSH ×2 (08:22→21:25)
[2024-12-18 08:52] LABS: Alanine Aminotransferase 17 U/L (0-40); Albumin Level 2.9 g/dL (3.5-5.0); Alkaline Phosphatase 45 U/L (39-117); Anion Gap 12 (12-20); Aspartate Amino Transferase 43 U/L (5-37); Blood Urea Nitrogen 79 mg/dL (9-16); Calcium 8.8 mg/dL (8.4-10.2); Carbon Dioxide 28 mmol/L (22-29); Chloride 111 mmol/L (96-108); Creatinine Clr Calc Pharmacy 39.3; Estimated Glomerular Filt Rate 44; Magnesium 2.8 mg/dL (1.6-2.6); Potassium 4.3 mmol/L (3.3-5.1); Sodium 147 mmol/L (135-145); Total Protein 5.6 g/dL (6.5-8.0)
[2024-12-18 09:33] LABS: Folate 9.6 ng/mL (> or = 4.0); Vitamin B12 439 pg/mL (200-900)
[2024-12-18] MEDS: metroNIDAZOLE/NS 500 MG/100 ML PIGGYBACK 100 MG IV (09:43)
--- NOTE | 2024-12-18 10:18 | MHC.CLN ---
F/U PT REMAINS NPO REVIEWED LABS DISCUSSED WITH PHARMACY CONTINUE PPN AT MAX GOAL RATE 70ML/HR WITH 68G LIPIDS PROVIDES 1537 TOTAL KCALS (23KCALS/KG BASED ON IBW), 168G DEXTROSE, 71G PROTEIN (1.05G/KG) REPLETE LYTES NEEDED RD CAN BE REACHED VIA TIGER CONNECT DURING OFF HOURS IF NEEDED
[2024-12-18 12:00] VITALS: BP 148/66; PULSE 92; RESP 20; TEMP 36.2
[2024-12-18 12:16] LABS: Hematocrit 22.8 % (42.0-52.0); Hemoglobin 7.3 g/dl (14.0-18.0); Mean Corpuscular HGB Conc 32.0 g/dl (31.0-36.0); Mean Corpuscular Hemoglobin 30.9 pg (27.0-33.0); Mean Corpuscular Volume 96.6 fL (80.0-98.0); NRBC Abs Auto 0.130 X10*3/uL (0.0-0.012); Platelet Count 145 X10*3/uL (160-400); Red Blood Count 2.36 X10*6/uL (4.60-5.80); White Blood Count 11.3 X10*3/uL (4.8-10.8)
--- NOTE | 2024-12-18 12:21 | MHC.SLORD ---
Speech Language Pathology Order Status: EVAPORATOR arrived to attempt pharyngeal strengthening exercises. EVAPORATOR explained findings from recent MBSS, then after several minutes, patient then asked sitter for something to eat/drink, was again explained rationale for NPO status. Patient's speech was very difficult to understand. Patient unable to complete volitional swallow, on attempt began coughing on secretions. Patient very fidgety in bed, with sitter next to him, who reports patient is actually managing secretions better now than he was earlier this a.m. Per MD, patient w/ difficulty speaking d/t secretions and requiring frequent suctioning. PEG placement has been postponed until patient is more medically stable.
[2024-12-18 12:33] LABS: NRBC Pct Auto 1.2 /100WBC (0.0-0.2)
--- NOTE | 2024-12-18 15:38 | MHC.CM.PN ---
Pt. is still acute, he is receiving TPN and may get PEG tube, due to failing swallow eval. Acute rehab is following.
[2024-12-18 16:00] VITALS: BP 146/66; PULSE 92; RESP 18; TEMP 36.3; O2SAT 94
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
[2024-12-18 19:52] VITALS: BP 160/80; PULSE 87; RESP 17; TEMP 36.7; O2SAT 93
[2024-12-18] MEDS: diazePAM 10 MG/2 ML CARTRIDGE 5 MG IVPUSH (21:03)
[2024-12-18] MEDS: Parenteral Nutrition 1,680 ML 70 ML IV (21:25)
[2024-12-18 23:45] VITALS: BP 120/80; PULSE 80; RESP 18; TEMP 36.3; O2SAT 96
[2024-12-19] VITALS (7 sets, daily range): BP systolic 127–172; BP diastolic 61–79; PULSE 84–96; RESP 17–18; TEMP 36.2–36.4; O2SAT 92–98
--- NOTE | 2024-12-19 | ECG_ITS ---
Test Reason : bradycardia Blood Pressure : */* mmHG Vent. Rate : 55 BPM Atrial Rate : 55 BPM P-R Int : 166 ms QRS Dur : 98 ms QT Int : 508 ms P-R-T Axes : 109 104 111 degrees QTcB Int : 485 ms Suspect limb lead reversal, interpretation assumes no reversal Sinus bradycardia with Premature atrial complexes Rightward axis Low voltage QRS Nonspecific ST and T wave abnormality Prolonged QT Abnormal ECG When compared with ECG of 10-Dec-2024 08:10, Premature atrial complexes are now Present Nonspecific T wave abnormality now evident in Anterolateral leads Referred By: Genesis Rehman Electronically Signed By: KAT EDWARDS
[2024-12-19 06:42] LABS: Alanine Aminotransferase 20 U/L (0-40); Albumin Level 2.8 g/dL (3.5-5.0); Alkaline Phosphatase 54 U/L (39-117); Anion Gap 15 (12-20); Aspartate Amino Transferase 56 U/L (5-37); Blood Urea Nitrogen 90 mg/dL (9-16); Calcium 9.1 mg/dL (8.4-10.2); Carbon Dioxide 24 mmol/L (22-29); Chloride 114 mmol/L (96-108); Creatinine Clr Calc Pharmacy 39.3; Estimated Glomerular Filt Rate 44; Magnesium 2.4 mg/dL (1.6-2.6); Potassium 4.7 mmol/L (3.3-5.1); Sodium 148 mmol/L (135-145); Total Protein 5.5 g/dL (6.5-8.0)
--- NOTE | 2024-12-19 07:47 | PC.NURSE ---
pt. received a total of 1000ml of the NS at 50ml/hr. A 1000ml bag started by prior shift therefore not scanned when at the 500ml eze.
[2024-12-19] MEDS: 0.9 % Sodium Chloride Flush 3 ML SYRINGE IVFLUSH ×3 (09:30→20:33)
[2024-12-19] MEDS: diazePAM 10 MG/2 ML CARTRIDGE 2.5 MG IVPUSH (10:21)
[2024-12-19 12:20] LABS: Hematocrit 22.7 % (42.0-52.0); Hemoglobin 7.3 g/dl (14.0-18.0); Mean Corpuscular HGB Conc 32.2 g/dl (31.0-36.0); Mean Corpuscular Hemoglobin 31.2 pg (27.0-33.0); Mean Corpuscular Volume 97.0 fL (80.0-98.0); NRBC Abs Auto 0.230 X10*3/uL (0.0-0.012); Platelet Count 139 X10*3/uL (160-400); Red Blood Count 2.34 X10*6/uL (4.60-5.80); White Blood Count 14.6 X10*3/uL (4.8-10.8)
[2024-12-19 12:21] LABS: VBG HCO3 31 mmol/L (22-26)
[2024-12-19 12:22] LABS: NRBC Pct Auto 1.6 /100WBC (0.0-0.2)
[2024-12-19 12:23] LABS: Venous Blood Gas Refer to POC result
[2024-12-19] MEDS: metroNIDAZOLE/NS 500 MG/100 ML PIGGYBACK 100 MG IV ×2 (13:39→20:32)
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
[2024-12-19] MEDS: OLANZapine 10 MG VIAL 2.5 MG IM (17:52)
--- NOTE | 2024-12-19 19:21 | PM.EVENT ---
Event Note Date of Service: 12/19/24 Event Note: 7:00 PM - Pt is coughing up brownish sputum (see picture below). Evaluated pt. He is agitated and recently received Zyprexa. Cardiopulmonary exam is remarkable for bilateral rhonchi. Abdomen is soft, ecchymosis noted in the umbilicus and flank; bowel sounds are increased. Ecchymosis also noted over penis and scrotum. The plan is to obtain chest, abdomen and pelvis CT scan as well as labs. Time Spent With Patient Time: Total time managing care of this patient today ____ minutes.
--- NOTE | 2024-12-19 19:36 | PC.NURSE ---
Recent stroke and is on aspiration precautions receiving TPN. He has a weak cough and has been resistant to suctioning but we have been suction small amounts of the brownish colored secretions throughout the day. At 1800 patient started coughing up moderate amounts of coffee ground in appearance sputum. Palpation of abdomen was tender to palpation stating ouch. Photographs and a narrative sent to provider. Dr. Rudd came to bedside to assess the patient. Ordering labs and abdominal CT. She recommended haldol for ongoing agitation.
--- NOTE | 2024-12-19 19:39 | HO.PM.IMCN ---
History of Present Illness Data of Consult Service Date: 12/19/24 Primary Care Provider: Santiago Drake MD [facility] Medical History Gastroesophageal reflux disease Chronic kidney disease Mood disorder Hypertension Functional capacity: independent ambulation Social History Household Members: None Household Members Other:: lives alone Housing: House Do you presently have visiting nurse or other home services: No Comment: 1:1 sittier Patient Tobacco Use Status: Never used Tobacco Substance Use Type: Marijuana Advance Directives Date on File: 05/14/24 service: No Meds Allergies Allergy/AdvReac Type Severity Reaction Status Date / Time No Known Allergies Allergy Verified 12/10/24 07:42 Active Medications: Current Medications Atorvastatin Calcium (Atorvastatin Calcium 40 Mg Tablet) 40 mg PO BEDTIME YELITZA Last Admin: 12/18/24 20:50 Dose: Not Given Ceftriaxone Sodium (Ceftriaxone Sodium 1 Gm Vial) 1 gm IVPUSH Q24H YELITZA Last Admin: 12/19/24 13:39 Dose: 1 gm Diazepam (Diazepam 10 Mg/2 Ml Cartridge) 2.5 mg IVPUSH Q8H PRN PRN Reason: Anxiety Last Admin: 12/19/24 10:21 Dose: 2.5 mg Enoxaparin Sodium (Enoxaparin Sodium 40 Mg/0.4 Ml Syringe) 40 mg SUBCUT Q24H YELITZA On Hold: 12/18/24 08:03 Last Admin: 12/17/24 17:31 Dose: Not Given Haloperidol Lactate (Haloperidol Lactate 5 Mg/Ml Vial) 2.5 mg IM ONCE PRN PRN Reason: Agitation Last Admin: 12/13/24 03:35 Dose: 2.5 mg Hydralazine HCl (Hydralazine Hcl 20 Mg/Ml Vial) 10 mg IVPUSH Q6H PRN; Protocol PRN Reason: SBP > 160 Last Admin: 12/14/24 17:06 Dose: 10 mg Hydralazine HCl (Hydralazine Hcl 20 Mg/Ml Vial) 10 mg IVPUSH TID [facility]; Protocol Last Admin: 12/19/24 15:37 Dose: 10 mg Nutrition (Parenteral) (Parenteral Nutrition) 1,680 mls @ 70 mls/hr IV .Q24H YELITZA; Protocol Stop: 12/19/24 20:59 Last Admin: 12/18/24 21:25 Dose: 70 mls/hr Nutrition (Parenteral) (Parenteral Nutrition) 1,680 mls @ 70 mls/hr IV .Q24H [facility]; Protocol Stop: 12/20/24 20:59 Metronidazole (Flagyl) 500 mg in 100 mls @ 100 mls/hr IV Q8H [facility] Last Infusion: 12/19/24 14:39 Dose: Infused Metoprolol Tartrate (Metoprolol Tartrate 5 Mg/5 Ml Vial) 5 mg IVPUSH TID [facility]; Protocol Last Admin: 12/19/24 15:40 Dose: 5 mg Ondansetron HCl (Ondansetron Hcl 4 Mg/2 Ml Vial) 4 mg IVPUSH Q8H PRN PRN Reason: Nausea and Vomiting Last Admin: 12/15/24 05:56 Dose: 4 mg Pharmacy Consult (Consult Rx Parenteral Nutrition Ordering) 1 each MISCELLANE DAILY PRN PRN Reason: Consult order Sodium Chloride (0.9 % Sodium Chloride Flush 3 Ml Syringe) [address] [facility] Last Admin: 12/19/24 15:40 Dose: 3 ml Home Medications ?Medication ?Instructions ?Recorded ?Confirmed ?Last Taken ?Type doxepin 25 mg capsule 25 mg PO BEDTIME 05/06/24 12/10/24 12/09/24 21:00 History pantoprazole 40 mg tablet,delayed 40 mg PO DAILY@0630 05/06/24 12/10/24 12/10/24 09:00 History release escitalopram oxalate 10 mg tablet 10 mg PO DAILY 12/10/24 12/10/24 12/10/24 09:00 History Physical Exam Vital Signs and Narrative: Vital Signs: Last Vital Signs Temp 97.5 F 12/19/24 15:31 Pulse 96 12/19/24 15:31 Resp 18 12/19/24 15:31 BP 155/73 H 12/19/24 15:31 Pulse Ox 98 12/19/24 15:31 O2 Del Method Nasal Cannula 12/19/24 15:31 O2 Flow Rate 5 12/19/24 15:31 BMI result Body Mass Index 28.5 Results Labs 12/19/24 12:13 12/19/24 05:49 Labs: Laboratory Results - last 24 hr 12/19/24 12/19/24 12/19/24 05:49 12:13 12:17 MCV 97.0 MCH 31.2 MCHC 32.2 RDW 14.7 Plt Count 139 L MPV 10.7 Absolute Nucleated RBC 0.230 H Nucleated RBC % (auto) 1.6 H VBG pH 7.56 H VBG pCO2 34 VBG pO2 185 VBG HCO3 31 H VBG O2 Saturation TNP VBG Base Excess 8.8 Anion Gap 15 Estim Creat Clear Calc 39.3 Estimated GFR 44 Random Glucose 132 H Calcium 9.1 Phosphorus 4.2 Magnesium 2.4 Total Bilirubin 0.9 AST 56 H ALT 20 Alkaline Phosphatase 54 Total Protein 5.5 L Albumin 2.8 L
[2024-12-19 19:57] LABS: Hematocrit 22.7 % (42.0-52.0); Hemoglobin 7.2 g/dl (14.0-18.0); Imm Gran Abs Auto 0.31 X10*3/uL (0.00-0.03); Imm Gran Pct Auto 2.1 % (0.0-0.4); Lymphocytes Absolute Auto 1.9 X10*3/uL (1.2-4.9); MANUAL DIFF FLAG NO; Mean Corpuscular HGB Conc 31.7 g/dl (31.0-36.0); Mean Corpuscular Hemoglobin 31.3 pg (27.0-33.0); Mean Corpuscular Volume 98.7 fL (80.0-98.0); NRBC Abs Auto 0.240 X10*3/uL (0.0-0.012); Platelet Count 131 X10*3/uL (160-400); Red Blood Count 2.30 X10*6/uL (4.60-5.80); White Blood Count 15.0 X10*3/uL (4.8-10.8)
[2024-12-19 19:59] LABS: NRBC Pct Auto 1.6 /100WBC (0.0-0.2)
[2024-12-19 20:02] LABS: INTERNATIONAL NORM RATIO 1.3 (0.9-1.1); Prothrombin Time 14.6 SEC (10.9-12.4)
[2024-12-19 20:16] LABS: Alanine Aminotransferase 25 U/L (0-40); Albumin Level 2.7 g/dL (3.5-5.0); Alkaline Phosphatase 54 U/L (39-117); Anion Gap 11 (12-20); Aspartate Amino Transferase 61 U/L (5-37); Blood Urea Nitrogen 89 mg/dL (9-16); Calcium 9.0 mg/dL (8.4-10.2); Carbon Dioxide 30 mmol/L (22-29); Chloride 112 mmol/L (96-108); Creatinine Clr Calc Pharmacy 44.2; Estimated Glomerular Filt Rate 50; Magnesium 2.3 mg/dL (1.6-2.6); Potassium 4.7 mmol/L (3.3-5.1); Sodium 148 mmol/L (135-145); Total Protein 5.4 g/dL (6.5-8.0)
[2024-12-19] MEDS: Parenteral Nutrition 1,680 ML 70 ML IV (21:56)
[2024-12-19 22:07] LABS: Lipase 43 U/L (8-78)
[2024-12-19] MEDS: iohexoL 350 MG/ML 100 ML INFUS..BTL 85 ML IV (23:38)
[2024-12-20] VITALS: BP 50/29; PULSE 51; RESP 4; TEMP 36.6; O2SAT 97
[2024-12-20 00:18] VITALS: BP 38/26
[2024-12-20] MEDS: Albumin Human 25 % 100 ML 133.33 ML IV (00:25)
[2024-12-20] MEDS: Lactated Ringers 1,000 ML 999 ML IV (00:25)
[2024-12-20 00:31] LABS: Glucose, Whole Blood 150 mg/dL (60-115)
[2024-12-20 01:22] LABS: Venous Blood Gas Refer to POC result
[2024-12-20 01:24] LABS: VBG HCO3 29 mmol/L (22-26)
[2024-12-20 01:45] VITALS: BP 38/20; RESP 6; O2SAT 95
--- NOTE | 2024-12-20 03:39 | PM.EVENT ---
Event Note Date of Service: 12/20/24 Event Note: Note I was called to patient's bedside to pronounce patient Pawel Will has .? No spontaneous movement were present.? There was not respond to verbal or tactile stimuli.? Pupils were mid dilated and fixed.? No breath sounds were appreciated over either lung field.? No carotid pulses were palpable.? No heart sounds were auscultated over entire pericardium.? Patient was pronounced at December 20, 2024 at 2:58 AM. Daughter were at bedside.? The family declined autopsy.? Patient was DNR/DNI/[employer]KL[employer] WHEEL [employer]ER.? Time of was 2:58 AM. Time Spent With Patient Time: Total time managing care of this patient today ____ minutes.
--- NOTE | 2024-12-20 05:50 | PC.NURSE ---
1900 Handover received from previous RN Ana Laura and acquired care of pt. Pt. with eyes open, mumbling and very restless in bed. Sitter at bedside for safety. Dr. Rudd at bedside at this time d/t pt. being orally suctioned for more copious amounts of now brown/dark brown with question of coffee grounds. Pt. confused. O2 sat's on 3L NC. Pt. repeatedly elevated upright in bed as aspiration risk but pt. instantly sloots down in bed at sideways angle. Per Dr Rudd, plan to get pt. to CT chest/abd. and premedicate with dilaudid 0.5mg IV x1, given at 20:32. Pt. to CT scan at 2315, occasional mariely to 30's. 12 ld. ekg performed and sent to Dr. Rudd. At 0015 BP 50/29, respirations <10. O2 sat's 92-95% on 7L Oxymask. Dr. Anderson and Dr. Rudd at bedside. See new med orders. After pt received LR bolus and Albumin manual BP 38/20. Reported to Dr. Rudd. Pt. made JUNIOR ANALYST, Pt. daughter Ronna at bedside at 0220. Dr. Rudd pronounced pt. at 02:58.
--- NOTE | 2024-12-20 15:02 | P.DN_ITS ---
Discharge Sum: Prov Provider Primary care physician: Santiago Drake MD Admitting clinician: Darshan Otero Attending physician on admission: Darshan Otero Consults: 12/10/24 10:04 Consult to Neurology Routine Consulting Provider: [facility] Reason for consultation: stroke 12/10/24 10:14 Consult to Vascular Surgery Routine Consulting Provider: [facility] Reason for consultation: acute cva, L vertebral artery blockage 12/11/24 04:38 Consult to Wound Care Routine Reason for consultation: skin tear on right arm 12/14/24 16:45 Consult to General Surgery Routine Consulting Provider: [facility] General Surgeons Reason for consultation: severe dysphagia, ? PEG tube 12/16/24 11:28 Consult to Wound Care Routine Reason for consultation: bruising noted to penis 12/16/24 15:55 Consult to Gastroenterology Routine Consulting Provider: Blair Lux Reason for consultation: anemia 12/16/24 15:57 Consult to Nephrology Routine Consulting Provider: [facility] Reason for consultation: kim 12/17/24 14:14 Consult to Hematology / Oncology Routine Consulting Provider: [facility] Oncology/Hematology Reason for consultation: anemia Has provider been notified: No Pronouncing clinician: Genesis Rehman Discharge Sum: Diag PCOD Cause of : Stroke with cerebral ischemia Contributing Factors (1) Dysphagia: (2) Acute CVA (cerebrovascular accident): (3) Respiratory failure: (4) Aspiration into airway: (5) Rectus sheath hematoma: (6) KIM (acute kidney injury): (7) Anemia: (8) Renal mass: Discharge Sum: Summary Date and Time Date of admission: 12/10/24 09:56 Date of : 12/20/24 Time of : 02:58 Summary Details: From the history and physical by the admitting hospitalist, Darshan Otero, 12/10/24: This is a 79-year-old male with a past medical history of orthostatic hypotension, CKD stage IIIB, mood disorder, GERD, provoked DVT status post 6 months of Eliquis, question renal mass who presents to the emergency room after sustaining a fall. Initially the patient reported the fall was the night of admission, however upon my interview he reports that he fell 2 days prior (Saturday 2AM). Reports feeling dizzy surrounding this. The patient states that he called his grandson this morning reporting his fall and hence he presented to the emergency room. The grandson who is bedside as well as the patient feel that his speech is not at baseline. Grandson reports facial asymmetry on the left side. 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 Pe ED provider this was discussed with vascular surgery who recommended dual antiplatelet therapy + statin. Pt has failed bedside swallow eval with concern over aspiratoin. He is noted to be hypoxic below 89% on room air and has a wet sounding cough. He as treated with rectal asa + iv abx to cover for po ssible aspiration pneumonia. 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 Unfortunately, he had severe dysphagia and could not take anything per mouth. He developed hypoxia due to aspiration pneumonia and had to be fed via TPN while awaiting PEG tube. He also developed acute anemia possibly due to hemolysis and rectus sheath hematoma. Unfortunately, he became increasingly agitated and hypoxic overnight 12/19-12/20. He was DNR/DNI per family discussion. He on 12/20 at 02:58 with family at bedside. Additional Data Confirmation of as documented by pronouncing clinician: no pulse, no respirations, no heart sounds and pupils fixed and dilated Family: at bedside Attending physician: Tati Zimmerman MD Was code activated?: No Autopsy requested?: No cloth examiner hand notified?: No Advance directives: Yes
== END 2024-12-20 02:58 | disposition expired | DRG 64 ==
LOC: HO.ED 09:25 → HO.EDOVER 10:34 → HO.IMC 19:29
PROVIDERS: Internal Medicine; Internal Medicine Critical Care Medicine; Nurse Practitioner Acute Care; Nurse Practitioner Family; Physician Assistant Medical; Admitting Provider Family Medicine; Emergency Provider Emergency Medicine; PCP Family Medicine; Visit Provider Family Medicine
DX: I63.9 Cerebral infarction, unspecified (principal); J69.0 Pneumonitis due to inhalation of food and vomit; J96.01 Acute respiratory failure with hypoxia; N17.0 Acute kidney failure with tubular necrosis; R29.810 Facial weakness; F39 Unspecified mood [affective] disorder; Z66 Do not resuscitate; I12.9 Hypertensive chronic kidney disease with stage 1 through stage 4 chronic kidney disease, or unspecified chronic kidney disease; I65.02 Occlusion and stenosis of left vertebral artery; W19.XXXA Unspecified fall, initial encounter; F02.B0 Dementia in other diseases classified elsewhere, moderate, without behavioral disturbance, psychotic disturbance, mood disturbance, and anxiety; R13.10 Dysphagia, unspecified; I95.1 Orthostatic hypotension; D64.9 Anemia, unspecified; R47.1 Dysarthria and anarthria; R29.702 NIHSS score 2; N18.32 Chronic kidney disease, stage 3b; K21.9 Gastro-esophageal reflux disease without esophagitis; Z86.718 Personal history of other venous thrombosis and embolism; Z20.822 Contact with and (suspected) exposure to COVID-19; Z79.899 Other long term (current) drug therapy
CPT/HCPCS: 36410; 36415; 70450; 70496; 70498; 70551; 71045; 71260; 74177; 74230; 76775; 80048; 80053; 80061; 80076; 81001; 82140; 82436; 82550; 82607; 82728; 82746; 82803; 82947; 83010; 83036; 83540; 83605; 83615; 83690; 83735; 83880; 83935; 84100; 84133; 84145; 84300; 84484; 85007; 85025; 85027; 85045; 85610; 85999; 86140; 86880; 87040; 87070; 87077; 87086; 87205; 87637; 92526; 92610; 92611; 93005; 93306; 94640; 97110; 97162; 97166; 97530; 99285; 99499; J0131; J0295; J0360; J0461; J0616; J0696; J1171; J1610; J1630; J1650; J1836; J1920; J2003; J2312; J2359; J2405; J2470; J2704; J3360; J7120; P9047; Q9957; Q9967

== ENCOUNTER → 2024-12-10 07:55 | Outpatient (BNV) | payer MEDICARE, SELFPAY | PROVIDERS: Emergency Provider Emergency Medicine; PCP Family Medicine; Visit Provider Radiology Diagnostic Radiology | DX: R29.810 Facial weakness (principal); R05.9 Cough, unspecified | CPT/HCPCS: 70450; 71045 ==

== ENCOUNTER → 2024-12-10 08:48 | Outpatient (BNV) | payer MEDICARE, SELFPAY | PROVIDERS: Emergency Provider Emergency Medicine; PCP Family Medicine; Visit Provider Family Medicine | DX: R13.10 Dysphagia, unspecified (principal); I63.9 Cerebral infarction, unspecified; J96.90 Respiratory failure, unspecified, unspecified whether with hypoxia or hypercapnia; T17.908A Unspecified foreign body in respiratory tract, part unspecified causing other injury, initial encounter; S30.1XXA Contusion of abdominal wall, initial encounter; N17.9 Acute kidney failure, unspecified; D64.9 Anemia, unspecified; N28.89 Other specified disorders of kidney and ureter | CPT/HCPCS: 99223; 99232; 99233; 99239 ==

== ENCOUNTER 2024-12-10 09:56 | Outpatient (BNV) | payer MEDICARE, SELFPAY | END 2024-12-17 12:50 | PROVIDERS: Admitting Provider Family Medicine; Emergency Provider Emergency Medicine; PCP Family Medicine; Visit Provider Radiology Diagnostic Radiology | DX: N17.9 Acute kidney failure, unspecified (principal); N28.89 Other specified disorders of kidney and ureter | CPT/HCPCS: 76775 ==

== ENCOUNTER 2024-12-10 09:56 | Outpatient (BNV) | payer MEDICARE, SELFPAY | END 2024-12-14 11:15 | PROVIDERS: Admitting Provider Family Medicine; Emergency Provider Emergency Medicine; PCP Family Medicine; Visit Provider Radiology Diagnostic Radiology | DX: R13.12 Dysphagia, oropharyngeal phase (principal) | CPT/HCPCS: 74230 ==

== ENCOUNTER 2024-12-10 09:56 | Outpatient (BNV) | payer MEDICARE, SELFPAY | END 2024-12-13 15:18 | PROVIDERS: Admitting Provider Family Medicine; Emergency Provider Emergency Medicine; PCP Family Medicine; Visit Provider Nuclear Medicine | DX: R09.02 Hypoxemia (principal) | CPT/HCPCS: 71045 ==

== ENCOUNTER 2024-12-10 09:56 | Outpatient (BNV) | payer MEDICARE, SELFPAY | END 2024-12-19 23:57 | PROVIDERS: Admitting Provider Family Medicine; Emergency Provider Emergency Medicine; PCP Family Medicine; Visit Provider Internal Medicine | DX: I48.91 Unspecified atrial fibrillation (principal); R00.1 Bradycardia, unspecified | CPT/HCPCS: 93010 ==

== ENCOUNTER 2024-12-10 09:56 | Outpatient (BNV) | payer MEDICARE, SELFPAY | END 2024-12-16 08:11 | PROVIDERS: Admitting Provider Family Medicine; Emergency Provider Emergency Medicine; PCP Family Medicine; Visit Provider Radiology Diagnostic Radiology | DX: R09.02 Hypoxemia (principal) | CPT/HCPCS: 71045 ==

== ENCOUNTER 2024-12-10 09:56 | Outpatient (BNV) | payer MEDICARE, SELFPAY | END 2024-12-19 13:10 | PROVIDERS: Admitting Provider Family Medicine; Emergency Provider Emergency Medicine; PCP Family Medicine; Visit Provider Radiology Diagnostic Radiology | DX: R09.02 Hypoxemia (principal) | CPT/HCPCS: 71045 ==

== ENCOUNTER → 2024-12-10 09:56 | Outpatient (BNV) | payer MEDICARE, SELFPAY | PROVIDERS: Admitting Provider Family Medicine; Emergency Provider Emergency Medicine; PCP Family Medicine; Visit Provider Psychiatry & Neurology Neurology | DX: F03.B0 Unspecified dementia, moderate, without behavioral disturbance, psychotic disturbance, mood disturbance, and anxiety (principal); I65.02 Occlusion and stenosis of left vertebral artery | CPT/HCPCS: 99223 ==

== ENCOUNTER → 2024-12-10 09:56 | Outpatient (BNV) | payer MEDICARE, SELFPAY | PROVIDERS: Admitting Provider Family Medicine; Emergency Provider Emergency Medicine; PCP Family Medicine; Visit Provider Internal Medicine | DX: N18.9 Chronic kidney disease, unspecified (principal); D63.1 Anemia in chronic kidney disease | CPT/HCPCS: 99222 ==

== ENCOUNTER → 2024-12-10 09:56 | Outpatient (BNV) | payer MEDICARE, SELFPAY | PROVIDERS: Admitting Provider Family Medicine; Emergency Provider Emergency Medicine; PCP Family Medicine; Visit Provider Nurse Practitioner Family | DX: N17.9 Acute kidney failure, unspecified (principal) | CPT/HCPCS: 99222 ==

== ENCOUNTER → 2024-12-10 09:56 | Outpatient (BNV) | payer MEDICARE, SELFPAY | PROVIDERS: Admitting Provider Family Medicine; Emergency Provider Emergency Medicine; PCP Family Medicine; Visit Provider Surgery | DX: R13.10 Dysphagia, unspecified (principal) | CPT/HCPCS: 99222; 99232 ==